=== PATIENT | male | born 1935 | race Asian ===

== ENCOUNTER 2018-12-19 16:19 | Inpatient (IN) | payer MEDICARE, OTHER ==
[~2018-12-19] VITALS: Ht 177.8 cm; Wt 75.8 kg
[2018-12-19 16:38] VITALS: BP 91/62
--- NOTE | 2018-12-19 16:38 | NUR ---
ED Nurse Note: PT BIBA R26 FROM C/C AMS AND HYPOTENSION, PER EMS REPORT, SNF NURSING STAFF CALLED 911 BECAUSE PT WAS ALTERED, PT IS ARMENIAN SPEAKING ONLY, WHEN EMS WAS ON SCENE, MEDICS NOTED PT'S BP LOW SYSTOLIC IN 70S. NOTED PT Aa&OX3 AT THIS TIME, GCS=15, BP 91/64. NO SX RESP DISTRESS NOTED, SAFETY PRECAUTIONS IN PLACE, WILL CONT MONITOR. WARM BLANKET PROVIDED FOR COMFORT.
--- NOTE | 2018-12-19 16:50 | NUR ---
ED Nurse Note: XRAY AT THE BEDSIDE.
--- NOTE | 2018-12-19 17:00 | NUR ---
ED Nurse Note: PT OFF TO CT
[2018-12-19 17:08] VITALS: BP 100/55
[2018-12-19 17:38] VITALS: BP 106/55
--- NOTE | 2018-12-19 17:57 | Diagnostic Imaging Report ---
EXAM: CT Head Without Intravenous Contrast CLINICAL HISTORY: AMS TECHNIQUE: Axial computed tomography images of the head brain without intravenous contrast. CTDI is 60 mGy and DLP is 1364.2 mGy-cm. One or more of the following dose reduction techniques were used: automated exposure control, adjustment of the mA and or kV according to patient size, use of iterative reconstruction technique. COMPARISON: No relevant prior studies available. FINDINGS: Brain: No hemorrhage. No edema. Atrophy with small vessel disease. Multifocal regions of encephalomalacia and gliosis. Ventricles: No ventriculomegaly. Bones joints: Old traumatic and surgical changes in the frontal skull- anterior cranial vault. Soft tissues: Unremarkable. Sinuses: No acute sinusitis. Mastoid air cells: No mastoid effusion. Other: Left cataract surgery. IMPRESSION: No acute intracranial process.
--- NOTE | 2018-12-19 17:59 | Diagnostic Imaging Report ---
EXAM: XR Chest, 1 View CLINICAL HISTORY: WEAK TECHNIQUE: Frontal view of the chest. COMPARISON: No relevant prior studies available. FINDINGS: Lungs: No consolidation. Pleural space: Unremarkable. No pneumothorax. Heart: Unremarkable. No cardiomegaly. Mediastinum: Unremarkable. Bones joints: No acute fracture. IMPRESSION: No acute cardiopulmonary disease.
[2018-12-19 18:03] LABS: BASOPHILS % (AUTO) 0.7 % (0.0-2.0); EOSINOPHILS % (AUTO) 0.8 % (0.0-3.0); HEMATOCRIT 42.9 % (42.0-52.0); HEMOGLOBIN 15.7 G/DL (14.2-18.0); LYMPHOCYTES % (AUTO) 11.6 % (20.0-45.0); MEAN CORPUSCULAR VOLUME 85 FL (80-99); MONOCYTES % (AUTO) 4.7 % (1.0-10.0); NEUTROPHILS % (AUTO) 82.2 % (45.0-75.0); PLATELET COUNT 338 K/UL (150-450); RED BLOOD COUNT 5.05 M/UL (4.70-6.10); RED CELL DISTRIBUTION WIDTH 10.4 % (11.6-14.8); WHITE BLOOD COUNT 16.4 K/UL (4.8-10.8)
--- NOTE | 2018-12-19 18:09 | NUR ---
ED Nurse Note: MARCO EWING SPOKE WITH STAFF OF [facility] FOR LIST OF MEDICATIONS. WAITING FOR FAX.
[2018-12-19 18:17] LABS: ANION GAP 10 mmol/L (5-15); BLOOD UREA NITROGEN 21 mg/dL (7-18); CALCIUM 9.3 MG/DL (8.5-10.1); CARBON DIOXIDE 26 MMOL/L (21-32); CHLORIDE 103 MMOL/L (98-107); CREATININE 1.9 MG/DL (0.55-1.30); POTASSIUM 4.2 MMOL/L (3.5-5.1); SODIUM 139 MMOL/L (136-145)
[2018-12-19 18:29] LABS: ALANINE AMINOTRANSFERASE 23 U/L (12-78); ALBUMIN 4.3 G/DL (3.4-5.0); ALBUMIN/GLOBULIN RATIO 0.8 (1.0-2.7); ALKALINE PHOSPHATASE 133 U/L (46-116); ASPARTATE AMINO TRANSFERASE 17 U/L (15-37); BILIRUBIN,TOTAL 0.6 MG/DL (0.2-1.0)
[2018-12-19 18:38] VITALS: BP 108/56
--- NOTE | 2018-12-19 18:46 | NUR ---
ED Nurse Note: levaquin withheld at this time, verified w/ ermd regarding pt's comfort measure status and antibiotic administration, per ERMD, hold until verified w/ admitting doctor.
[2018-12-19 19:12] LABS: APPEARANCE,URINE CLOUDY; BILIRUBIN, URINE 1+ (NEGATIVE); COLOR,URINE BROWN; GLUCOSE, URINE (UA) NEGATIVE (NEGATIVE); KETONES,URINE 1+ (NEGATIVE); LEUKOCYTE ESTERASE ,URINE 1+ (NEGATIVE); NITRITE,URINE NEGATIVE (NEGATIVE); PH,URINE 5 (4.5-8.0); PROTEIN,URINE 3+ (NEGATIVE); UROBILINOGEN,URINE 4 MG/DL (0.0-1.0)
--- NOTE | 2018-12-19 19:51 | NUR ---
ED Nurse Note: REPORT GIVEN TO TIM CHOPRA FROM [facility].
--- NOTE | 2018-12-19 20:00 | NUR ---
NURSE NOTES: Received report from TIM Asencio. Pt arrived @ 1999 from ED. Pt on room air, AAO x 3, forgetful, Amharic speaking. IV sites intact and patent. No valuable belongings noted. Swabs done from ED. Vitals obtained 97.8F, 82HR, 19RR, 118/72BP, 96O2. Skin intact. Admission order noted and carried out. No other complaints or concerns verbalized at this time. Bed locked, lowest position, side rails up x 2, call light within reach. Will continue to monitor.
[2018-12-19] MEDS ORDERED: Nitroglycerin Subl 0.4mg tab SL PRN (20:45)
[2018-12-19] MEDS ORDERED: Albuterol/Ipratropium 3ml neb HHN PRN (20:45)
[2018-12-19] MEDS ORDERED: Miralax 17gm pkt ORAL PRN (20:45)
[2018-12-19] MEDS ORDERED: Promethazine/Codeine 5ml UD ORAL PRN (20:45)
[2018-12-19 21:14] LABS: CREATINE KINASE 78 U/L (26-308)
--- NOTE | 2018-12-19 21:15 | Emergency Room Report ---
History of Present Illness General Chief Complaint: Altered Level of Consciousness Source: Medical Record Present Illness HPI 83-year-old male presents ED for evaluation. [facility]. Per nursing staff patient noted to be more lethargic and altered today. Also noted to be hypotensive as per EMS. Systolic in the 70s. On arrival patient does not provide any additional history at this time. No signs of distress. No reported fevers or chills. No other aggravating relieving factors. No other associated symptoms Allergies: Coded Allergies: No Known Allergies (Verified , 08/20/09) Patient History Past Medical History: HTN, other - encephalopathy Social History: Denies: smoking, alcohol use, drug use Immunizations: UTD Reviewed Nursing Documentation: PMH: Agreed; PSxH: Agreed Nursing Documentation-PMH Hx Hypertension: Yes Hx Gastrointestinal Problems: Yes - dysphagia Hx Neurological Problems: Yes - encephalopathy, syncope Review of Systems All Other Systems: limited Physical Exam Vital Signs Date Time Temp Pulse Resp B/P (MAP) Pulse Ox O2 Delivery O2 Flow Rate FiO2 12/19/18 16:31 97.5 75 15 91/64 (73) 95 Room Air Sp02 EP Interpretation: reviewed, normal General Appearance: no apparent distress, lethargic Head: normocephalic Eyes: bilateral eye normal inspection, bilateral eye PERRL ENT: normal ENT inspection Neck: normal inspection Respiratory: chest non-tender, lungs clear, normal breath sounds, speaking full sentences Cardiovascular #1: regular rate, rhythm, no edema Gastrointestinal: normal bowel sounds, non tender, soft, non-distended, no guarding, no rebound Rectal: deferred Genitourinary: no CVA tenderness Musculoskeletal: normal inspection Neurologic: other - lethargic Psychiatric: other - lethargic Skin: other - see nursing skin notes Lymphatic: normal inspection Medical Decision Making Diagnostic Impression: Primary Impression: Encephalopathy acute Additional Impressions: Sepsis Qualified Codes: A41.9 - Sepsis, unspecified organism UTI (urinary tract infection) Qualified Codes: N39.0 - Urinary tract infection, site not specified; R31.9 - Hematuria, unspecified Renal insufficiency ER Course Hospital Course 83 yo M presents with hypotension, AMS from SNF Differential diagnoses include: Pneumonia, UTI, sepsis, dehydration, HI/ unstable angina Clinical course Patient placed on stretcher. 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 After initial history and physical, I ordered labs, IV fluids, EKG, chest x-ray, blood cultures, UA. Labs - BUN/Cr elevated, noted leukocytosis, lactic elevated, UA + bacteria EKG - NSR, no acute ischemic changes interpreted by me CXR - no acute process given 30cc/kg fluid bolus. reportedly hypotension at SNF, but BP within normal limits here. Abx given. patient is DNR/comfort per [facility] Case discussed with Dr Cao and they agreed to admit patient to their service for further care and support I feel this is a highly complex case requiring extensive working including EKG/ Rhythm strip, Xray/CT/US, Blood/urine lab work, repeat exams while in ED, and administration of strong opiates/narcotics for pain control, admission to hospital or close patient follow up. Diagnosis - acute encephalopathy, sepsis, UTI, renal insufficiency Patient admitted to floor in serious condition Labs Test 12/19/18 17:50 12/19/18 18:10 12/19/18 18:50 White Blood Count 16.4 K/UL (4.8-10.8) Red Blood Count 5.05 M/UL (4.70-6.10) Hemoglobin 15.7 G/DL (14.2-18.0) Hematocrit 42.9 % (42.0-52.0) Mean Corpuscular Volume 85 FL (80-99) Mean Corpuscular Hemoglobin 31.2 PG (27.0-31.0) Mean Corpuscular Hemoglobin Concent 36.7 G/DL (32.0-36.0) Red Cell Distribution Width 10.4 % (11.6-14.8) Platelet Count 338 K/UL (150-450) Mean Platelet Volume 5.1 FL (6.5-10.1) Neutrophils (%) (Auto) 82.2 % (45.0-75.0) Lymphocytes (%) (Auto) 11.6 % (20.0-45.0) Monocytes (%) (Auto) 4.7 % (1.0-10.0) Eosinophils (%) (Auto) 0.8 % (0.0-3.0) Basophils (%) (Auto) 0.7 % (0.0-2.0) Sodium Level 139 MMOL/L (136-145) Potassium Level 4.2 MMOL/L (3.5-5.1) Chloride Level 103 MMOL/L (98-107) Carbon Dioxide Level 26 MMOL/L (21-32) Anion Gap 10 mmol/L (5-15) Blood Urea Nitrogen 21 mg/dL (7-18) Creatinine 1.9 MG/DL (0.55-1.30) Estimat Glomerular Filtration Rate mL/min (>60) Glucose Level 178 MG/DL (74-106) Lactic Acid Level 2.90 mmol/L (0.4-2.0) 2.10 mmol/L (0.66-2.22) Calcium Level 9.3 MG/DL (8.5-10.1) Total Bilirubin 0.6 MG/DL (0.2-1.0) Aspartate Amino Transf (AST/SGOT) 17 U/L (15-37) Alanine Aminotransferase (ALT/SGPT) 23 U/L (12-78) Alkaline Phosphatase 133 U/L (46-116) Troponin I 0.042 ng/mL (0.000-0.056) Pro-B-Type Natriuretic Peptide 287 pg/mL (0-125) Total Protein 9.4 G/DL (6.4-8.2) Albumin 4.3 G/DL (3.4-5.0) Globulin 5.1 g/dL Albumin/Globulin Ratio 0.8 (1.0-2.7) Urine Color Brown Urine Appearance Cloudy Urine pH 5 (4.5-8.0) Urine Specific [place] 1.025 (1.005-1.035) Urine Protein 3+ (NEGATIVE) Urine Glucose (UA) Negative (NEGATIVE) Urine Ketones 1+ (NEGATIVE) Urine Blood 5+ (NEGATIVE) Urine Nitrite Negative (NEGATIVE) Urine Bilirubin 1+ (NEGATIVE) Urine Ictotest Negative (NEGATIVE) Urine Urobilinogen 4 MG/DL (0.0-1.0) Urine Leukocyte Esterase 1+ (NEGATIVE) Urine RBC 30-40 /HPF (0 - 0) Urine WBC 2-4 /HPF (0 - 0) Urine Squamous Epithelial Cells None /LPF (NONE/OCC) Urine Bacteria Few /HPF (NONE) EKG Diagnostic Results Rate: normal Rhythm: NSR ST Segments: no acute changes ASA given to the pt in ED: No Rhythm Strip Diag. Results EP Interpretation: yes Rhythm: NSR, no PVC's, no ectopy Chest X-Ray Diagnostic Results Chest X-Ray Diagnostic Results : Chest X-Ray Ordered: Yes # of Views/Limited/Complete: 1 View Indication: Other - AMS EP Interpretation: Yes Interpretation: no consolidation, no effusion, no pneumothorax, no acute cardiopulmonary disease Impression: No acute disease Electronically Signed by: Electronically signed by Robert Corado MD CT/MRI/US Diagnostic Results CT/MRI/US Diagnostic Results : Imaging Test Ordered: CT Head Impression no acute process Last Vital Signs Date Time Temp Pulse Resp B/P (MAP) Pulse Ox O2 Delivery O2 Flow Rate FiO2 12/19/18 20:00 98.9 72 14 104/56 98 Room Air Status: improved Disposition: ADMITTED INPATIENT Condition: Serious Referrals: NON PHYSICIAN (PCP) Robert Corado MD Dec 19, 2018 21:15
[2018-12-19] MEDS ORDERED: ROBITUSSIN DM PO (21:20)
[2018-12-19] MEDS ORDERED: MYLANTA PO (21:20)
[2018-12-19] MEDS ORDERED: ARICEPT10 MG ORAL (21:20)
[2018-12-19] MEDS ORDERED: NAMENDA5 MG ORAL (21:20)
[2018-12-19] MEDS ORDERED: PROVERA10 MG ORAL (21:20)
[2018-12-19] MEDS ORDERED: LOSARTAN POTASS25 M1 PO (21:20)
[2018-12-19] MEDS ORDERED: MOM30 ML ORAL (21:20)
[2018-12-19] MEDS ORDERED: FINASTERIDE5 MG ORAL (21:20)
[2018-12-19] MEDS ORDERED: ACETAMINOPHEN325 M1 ORAL ×2 (21:20→21:54)
--- NOTE | 2018-12-19 21:30 | NUR ---
NURSE NOTES: Received meds list via fax from [facility]. Meds recon done. Notified Dr. Cao.
[2018-12-19] MEDS ORDERED: Cefepime HCl 2 GM in D5W 55 ML IV SCH (22:00)
[2018-12-19] MEDS: Heparin 5000 units/ml inj SUBQ SCH (22:06)
[2018-12-19] MEDS ORDERED: Vancomycin 1gm in D5W 275ml IVPB ONE (23:00)
[2018-12-20] VITALS: BP 118/72
[2018-12-20 04:00] VITALS: BP 120/74
--- NOTE | 2018-12-20 06:35 | NUR ---
NURSE NOTES: RN couldn't collect the urine. Pt is incontinent. Left message Dr. Cao for straight cath order. Waiting for call back.
[2018-12-20 07:07] LABS: BASOPHILS % (AUTO) 1.2 % (0.0-2.0); EOSINOPHILS % (AUTO) 2.9 % (0.0-3.0); HEMATOCRIT 34.6 % (42.0-52.0); HEMOGLOBIN 12.3 G/DL (14.2-18.0); LYMPHOCYTES % (AUTO) 24.6 % (20.0-45.0); MEAN CORPUSCULAR VOLUME 87 FL (80-99); MONOCYTES % (AUTO) 6.8 % (1.0-10.0); NEUTROPHILS % (AUTO) 64.6 % (45.0-75.0); PLATELET COUNT 246 K/UL (150-450); RED BLOOD COUNT 3.98 M/UL (4.70-6.10); RED CELL DISTRIBUTION WIDTH 11.6 % (11.6-14.8)
[2018-12-20 07:11] LABS: ALBUMIN 3.3 G/DL (3.4-5.0); ANION GAP 10 mmol/L (5-15); BLOOD UREA NITROGEN 19 mg/dL (7-18); CALCIUM 8.6 MG/DL (8.5-10.1); CARBON DIOXIDE 20 MMOL/L (21-32); CHLORIDE 109 MMOL/L (98-107); CREATININE 1.3 MG/DL (0.55-1.30); PHOSPHORUS 2.9 MG/DL (2.5-4.9); POTASSIUM 4.8 MMOL/L (3.5-5.1); SODIUM 139 MMOL/L (136-145)
--- NOTE | 2018-12-20 07:19 | NUR ---
HAND-OFF: Report given to TIM Roberts.
--- NOTE | 2018-12-20 07:57 | NUR ---
NURSE NOTES: received patient in bed, no complaint or sign of distress. RAC IV access saline locked. Bed locked at the lowest position possible, call light within easy reach, siderails up x2. Will continue to monitor patient and follow up with the plan of care.
[2018-12-20 08:00] VITALS: BP 132/74
[2018-12-20] MEDS: Heparin 5000 units/ml inj SUBQ SCH ×2 (08:56→21:15)
[2018-12-20 12:00] VITALS: BP 134/80
[2018-12-20] MEDS: Cefepime HCl 2 GM in D5W 55 ML IV SCH (12:23)
--- NOTE | 2018-12-20 13:39 | NUR ---
NURSE NOTES: Patient pulled out his IV access, fought while RN was trying to insert another one. Reinserted at LFA gauge 24. Nurse tried to obtain urine for lab requested by , but no urine output observed. Done bladder scan, total volume 173ml, reported to dr Cao, orders obtained to hydrate patient and for awallow eval as patient is NPO due to possible dysphagia.
[2018-12-20 15:48] VITALS: BP 130/77
[2018-12-20] MEDS ORDERED: 1/2 NS 1000ml IV ONE (16:09)
--- NOTE | 2018-12-20 16:16 | Cardiology Report ---
APPROVED REPORT EKG Measurement Heart [id number] Normal sinus rhythm Nonspecific ST abnormality Abnormal ECG
--- NOTE | 2018-12-20 16:25 | History and Physical ---
History of Present Illness General Date patient seen: Dec 20, 2018 Reason for Hospitalization: Altered Level of Consciousness Present Illness HPI 83-year-old male with hx of Dementia, HTN, BPH presents ED for evaluation of lethargy for one day. Also noted to be hypotensive as per EMS. His Systolic was in the 70s. On arrival to ER patient does not provide any additional history. He was diagnosed to have UTI and admitted to Med/surg for further management. Pt is DNR and DNI. Allergies: Coded Allergies: No Known Allergies (Verified , 08/20/09) Medication History Scheduled Donepezil Hcl* (Aricept*), 10 MG ORAL DAILY, (Reported) Finasteride (Finasteride), 5 MG ORAL QHS, (Reported) Losartan Potassium (Losartan Potassium), 50 MG PO DAILY, (Reported) Medroxyprogesterone Acet* (Provera*), 10 MG ORAL DAILY, (Reported) Memantine Hcl* (Namenda*), 5 MG ORAL TWICE A DAY, (Reported) Scheduled PRN Acetaminophen* (Acetaminophen 325MG Tablet*), 650 MG ORAL Q4H PRN for Moderate Pain (Pain Scale 4-6), (Reported) Acetaminophen* (Acetaminophen 325MG Tablet*), 325 MG ORAL Q4H PRN for Mild Pain (Pain Scale 1-3), (Reported) Magnesium Hydroxide (Milk of Magnesia), 30 ML ORAL DAILY PRN for CONSTIPATION, ( Reported) [Mylanta 200-200-20], 15 ML PO FOUR TIMES A DAY PRN for DYSPESIA, (Reported) [Robitussin Dm], 5 ML PO Q6HR PRN for For Cough, (Reported) Patient History Healthcare decision maker Resuscitation status Advanced Directive on File Past Medical/Surgical History Past Medical/Surgical History: (1) Alzheimer's dementia (2) BPH (benign prostatic hyperplasia) Review of Systems All Other Systems: negative except mentioned in HPI Physical Exam General Appearance: WD/WN Lines, tubes and drains: peripheral, PICC HEENT: normocephalic, atraumatic Neck: non-tender, normal alignment Respiratory/Chest: chest wall non-tender, lungs clear Cardiovascular/Chest: normal peripheral pulses, normal rate Abdomen: normal bowel sounds, non tender Genitourinary/Rectal: normal genital exam, normal rectal exam Last 24 Hour Vital Signs Date Time Temp Pulse Resp B/P (MAP) Pulse Ox O2 Delivery O2 Flow Rate FiO2 12/20/18 15:48 98.3 83 19 130/77 (94) 98 12/20/18 12:00 98.1 86 18 134/80 (98) 98 12/20/18 09:00 Room Air 12/20/18 08:00 97.7 81 18 132/74 (93) 100 12/20/18 06:59 78 16 97 Room Air 21 12/20/18 04:00 97.4 80 19 120/74 (89) 96 12/20/18 00:00 97.8 82 19 118/72 (87) 96 12/19/18 21:00 Nasal Cannula 2.0 12/19/18 20:33 Nasal Cannula 2.0 12/19/18 20:00 98.9 72 14 104/56 98 Room Air 12/19/18 18:38 98.5 82 16 108/56 98 Room Air 12/19/18 17:38 98.5 80 16 106/55 98 Room Air 12/19/18 17:11 72 16 Room Air 12/19/18 17:08 82 14 100/55 100 Room Air 12/19/18 16:38 98.5 72 14 91/62 98 Room Air 12/19/18 16:31 97.5 75 15 91/64 (73) 95 Room Air Intake and Output 12/19/18 12/20/18 18:59 06:59 Intake Total 1000 ml 55 ml Balance 1000 ml 55 ml Intake IV Total 1000 ml 55 ml # Voids 1 Laboratory Tests Test 12/19/18 17:50 12/19/18 18:10 12/19/18 18:50 12/20/18 06:10 White Blood Count 16.4 K/UL (4.8-10.8) H 11.0 K/UL (4.8-10.8) H Red Blood Count 5.05 M/UL (4.70-6.10) 3.98 M/UL (4.70-6.10) L Hemoglobin 15.7 G/DL (14.2-18.0) 12.3 G/DL (14.2-18.0) L Hematocrit 42.9 % (42.0-52.0) 34.6 % (42.0-52.0) L Mean Corpuscular Volume 85 FL (80-99) 87 FL (80-99) Mean Corpuscular Hemoglobin 31.2 PG (27.0-31.0) H 31.0 PG (27.0-31.0) Mean Corpuscular Hemoglobin Concent 36.7 G/DL (32.0-36.0) H 35.7 G/DL (32.0-36.0) Red Cell Distribution Width 10.4 % (11.6-14.8) L 11.6 % (11.6-14.8) Platelet Count 338 K/UL (150-450) 246 K/UL (150-450) Mean Platelet Volume 5.1 FL (6.5-10.1) L 4.8 FL (6.5-10.1) L Neutrophils (%) (Auto) 82.2 % (45.0-75.0) H 64.6 % (45.0-75.0) Lymphocytes (%) (Auto) 11.6 % (20.0-45.0) L 24.6 % (20.0-45.0) Monocytes (%) (Auto) 4.7 % (1.0-10.0) 6.8 % (1.0-10.0) Eosinophils (%) (Auto) 0.8 % (0.0-3.0) 2.9 % (0.0-3.0) Basophils (%) (Auto) 0.7 % (0.0-2.0) 1.2 % (0.0-2.0) Sodium Level 139 MMOL/L (136-145) 139 MMOL/L (136-145) Potassium Level 4.2 MMOL/L (3.5-5.1) 4.8 MMOL/L (3.5-5.1) Chloride Level 103 MMOL/L (98-107) 109 MMOL/L (98-107) H Carbon Dioxide Level 26 MMOL/L (21-32) 20 MMOL/L (21-32) L Anion Gap 10 mmol/L (5-15) 10 mmol/L (5-15) Blood Urea Nitrogen 21 mg/dL (7-18) H 19 mg/dL (7-18) H Creatinine 1.9 MG/DL (0.55-1.30) H 1.3 MG/DL (0.55-1.30) Estimat Glomerular Filtration Rate mL/min (>60) mL/min (>60) Glucose Level 178 MG/DL (74-106) H 136 MG/DL (74-106) H Lactic Acid Level 2.90 mmol/L (0.4-2.0) H 2.10 mmol/L (0.66-2.22) Uric Acid 5.7 MG/DL (2.6-7.2) Calcium Level 9.3 MG/DL (8.5-10.1) 8.6 MG/DL (8.5-10.1) Total Bilirubin 0.6 MG/DL (0.2-1.0) Aspartate Amino Transf (AST/SGOT) 17 U/L (15-37) Alanine Aminotransferase (ALT/SGPT) 23 U/L (12-78) Alkaline Phosphatase 133 U/L (46-116) H Total Creatine Kinase 78 U/L (26-308) Troponin I 0.042 ng/mL (0.000-0.056) Pro-B-Type Natriuretic Peptide 287 pg/mL (0-125) H Total Protein 9.4 G/DL (6.4-8.2) H Albumin 4.3 G/DL (3.4-5.0) 3.3 G/DL (3.4-5.0) L Globulin 5.1 g/dL Albumin/Globulin Ratio 0.8 (1.0-2.7) L Urine Color Brown Urine Appearance Cloudy Urine pH 5 (4.5-8.0) Urine Specific [place] 1.025 (1.005-1.035) Urine Protein 3+ (NEGATIVE) H Urine Glucose (UA) Negative (NEGATIVE) Urine Ketones 1+ (NEGATIVE) H Urine Blood 5+ (NEGATIVE) H Urine Nitrite Negative (NEGATIVE) Urine Bilirubin 1+ (NEGATIVE) H Urine Ictotest Negative (NEGATIVE) Urine Urobilinogen 4 MG/DL (0.0-1.0) H Urine Leukocyte Esterase 1+ (NEGATIVE) H Urine RBC 30-40 /HPF (0 - 0) H Urine WBC 2-4 /HPF (0 - 0) Urine Squamous Epithelial Cells None /LPF (NONE/OCC) Urine Bacteria Few /HPF (NONE) Phosphorus Level 2.9 MG/DL (2.5-4.9) Microbiology Date/Time Source Procedure Growth Status 12/19/18 17:52 Rectum Received Height (Feet): 5 Height (Inches): 10.00 Weight (Pounds): 170 Medications Current Medications Medications (Trade) Dose Ordered Sig/Mily Route PRN Reason Start Time Stop Time Status Last Admin Dose Admin Acetaminophen (Tylenol) 650 mg Q4H PRN ORAL fever 12/19/18 20:45 01/18/19 20:44 Albuterol/ Ipratropium (Albuterol/ Ipratropium) 3 ml Q4H PRN HHN Shortness of Breath 12/19/18 20:45 12/24/18 20:44 Cefepime HCl 2 gm/ Dextrose 55 ml @ 110 mls/hr Q12H IV 12/20/18 12:00 12/26/18 11:59 12/20/18 12:23 Heparin Sodium (Porcine) (Heparin 5000 units/ml) 5,000 units EVERY 12 HOURS SUBQ 12/19/18 21:00 01/18/19 20:59 12/20/18 08:56 Nitroglycerin (Ntg) 0.4 mg Q5M PRN SL Prn Chest Pain 12/19/18 20:45 01/18/19 20:44 Ondansetron HCl (Zofran) 4 mg Q6H PRN IVP Nausea & Vomiting 12/19/18 20:45 01/18/19 20:44 Polyethylene Glycol (Miralax) 17 gm DAILYPRN PRN ORAL Constipation 12/19/18 20:45 01/18/19 20:44 Promethazine HCl/ Codeine (Phenergan with Codeine) 5 ml Q4H PRN ORAL For Cough 12/19/18 20:45 01/18/19 20:44 Sodium Chloride 1,000 ml @ 75 mls/hr [id number] IV 12/20/18 13:45 01/19/19 13:44 12/20/18 14:19 Temazepam (Restoril) 15 mg HSPRN PRN ORAL Insomnia 12/19/18 20:45 12/26/18 20:44 Vancomycin HCl (Vanco rx to dose) 1 ea DAILY PRN MISC Per rx protocol 12/19/18 20:45 01/18/19 20:44 Assessment/Plan Problem List: (1) UTI (urinary tract infection) ICD Codes: N39.0 - Urinary tract infection, site not specified SNOMED: 66663659, [id number] Qualifiers: Qualified Codes: N39.0 - Urinary tract infection, site not specified; R31.9 - Hematuria, unspecified (2) Alzheimer's dementia ICD Codes: G30.9 - Alzheimer's disease, unspecified; F02.80 - Dementia in other diseases classified elsewhere without behavioral disturbance SNOMED: 81455999 (3) BPH (benign prostatic hyperplasia) ICD Codes: N40.0 - Benign prostatic hyperplasia without lower urinary tract symptoms SNOMED: 292429161 Assessment/Plan: check urine cultures iv abx venous doppler of US becuase of Megestrol dvt porphylaxis check electrolytes swallow study Jarad Cao MD Dec 20, 2018 16:25
--- NOTE | 2018-12-20 17:11 | NUR ---
NURSE NOTES: performed bladder scan 181cc noted. Tried in and out urinary catheter, with help of CARPENTER MATE holding patient to prevent him to interfere with procedure. Nurse was unable to obtain urine specimen as patient forcefully held nurse's arm pulling out catheter that was already at the tip of patient's urethra.
--- NOTE | 2018-12-20 19:30 | NUR ---
HAND-OFF: Report given to TIM Barriga.
[2018-12-20 20:00] VITALS: BP 135/81
--- NOTE | 2018-12-20 20:00 | NUR ---
NURSE NOTES: Received report from TIM Banuelos. patient a/a/o x2, breathing unlabored on room air. Speaking Lithuanian. Iv noted on the left fore arm intact and patent running 1/2 ns 75 cc/hr. Bed placed at the lowest with alarm, brake, and siderails up for safety. Call light placed within reach and reeducated on the use. Will continue to monitor and provide care as ordered.
--- NOTE | 2018-12-20 23:00 | NUR ---
NURSE NOTES: Sent down urine and sputum samples to the lab.
[2018-12-20 23:48] LABS: APPEARANCE,URINE CLEAR; BILIRUBIN, URINE NEGATIVE (NEGATIVE); COLOR,URINE PALE YELLOW; GLUCOSE, URINE (UA) NEGATIVE (NEGATIVE); KETONES,URINE NEGATIVE (NEGATIVE); LEUKOCYTE ESTERASE ,URINE NEGATIVE (NEGATIVE); NITRITE,URINE NEGATIVE (NEGATIVE); PH,URINE 6 (4.5-8.0); PROTEIN,URINE NEGATIVE (NEGATIVE); UROBILINOGEN,URINE NORMAL MG/DL (0.0-1.0)
[2018-12-21] VITALS: BP 157/87
[2018-12-21] MEDS ORDERED: Vancomycin 1gm/D5W 275ml IVPB ONE ×2 (01:00)
[2018-12-21 04:00] VITALS: BP 142/79
--- NOTE | 2018-12-21 07:30 | NUR ---
NURSE NOTES: Received patient on bed, asleep. IV site intact and patent and covered. Bed in low and locked position, call light in reach. No signs of respiratory distress or pain. Room board updated, will continue to monitor.
--- NOTE | 2018-12-21 07:32 | NUR ---
HAND-OFF: Report given to TIM Harper.
[2018-12-21 08:00] VITALS: BP 138/81
[2018-12-21] MEDS: Heparin 5000 units/ml inj SUBQ SCH ×2 (10:20→21:10)
[2018-12-21 12:00] VITALS: BP 136/78
--- NOTE | 2018-12-21 12:26 | Pulmonology Progress Note ---
Assessment/Plan Problems: (1) UTI (urinary tract infection) (2) Alzheimer's dementia (3) BPH (benign prostatic hyperplasia) Assessment/Plan more alert VS more stable check urine cultures iv abx venous doppler of US becuase of Megestrol dvt porphylaxis check electrolytes swallow study Subjective ROS Limited/Unobtainable: No Constitutional: Reports: no symptoms HEENT: Repors: no symptoms Respiratory: Reports: no symptoms Allergies: Coded Allergies: No Known Allergies (Verified , 08/20/09) Objective Last 24 Hour Vital Signs Date Time Temp Pulse Resp B/P (MAP) Pulse Ox O2 Delivery O2 Flow Rate FiO2 12/21/18 09:00 Room Air 12/21/18 08:00 97.5 78 19 138/81 (100) 96 12/21/18 07:51 71 18 97 Room Air 21 12/21/18 04:00 97.2 75 20 142/79 (100) 95 12/21/18 00:00 98.1 77 20 157/87 (110) 95 12/20/18 21:00 Room Air 12/20/18 20:00 98.2 74 19 135/81 (99) 95 12/20/18 19:22 72 16 95 Room Air 21 12/20/18 15:48 98.3 83 19 130/77 (94) 98 Intake and Output 12/20/18 12/21/18 19:00 07:00 Intake Total 130 ml 1705.000 ml Balance 130 ml 1705.000 ml Intake IV Total 130 ml 1705.000 ml # Voids 8 3 # Bowel Movements 1 General Appearance: WD/WN HEENT: normocephalic, atraumatic Respiratory/Chest: chest wall non-tender, lungs clear Cardiovascular: normal peripheral pulses, normal rate Abdomen: soft, non tender, no organomegaly Genitourinary: normal external genitalia Extremities: no clubbing Skin: no lesions Microbiology Date/Time Source Procedure Growth Status 12/19/18 18:25 Blood Blood Culture - Preliminary NO GROWTH AFTER 24 HOURS Resulted 12/19/18 18:10 Blood Blood Culture - Preliminary NO GROWTH AFTER 24 HOURS Resulted 12/19/18 17:52 Nasal Nares MRSA Culture - Final NO METHICILLIN RESISTANT STAPH AUREUS... Complete 12/19/18 17:52 Stool - Final NO CARBAPENEM-RESISTANT ENTEROBACTERI... Complete 12/19/18 17:52 Rectum VRE Culture - Final NO VANCOMYCIN RESISTANT ENTEROCOCCUS ... Complete Laboratory Tests 12/20/18 22:00: Random Vancomycin Level 6.4 12/20/18 22:30: Urine Color Pale yellow, Urine Appearance Clear, Urine pH 6, Urine Specific [place] 1.015, Urine Protein Negative, Urine Glucose (UA) Negative, Urine Ketones Negative, Urine Blood 2+H, Urine Nitrite Negative, Urine Bilirubin Negative, Urine Urobilinogen Normal, Urine Leukocyte Esterase Negative, Urine RBC 2-4H, Urine WBC 0, Urine Squamous Epithelial Cells Few, Urine Bacteria None , Urine Eosinophils None seen, Urine Osmolality 574H, Urine Random Creatinine [ Pending], Urine Random Microalbumin [Pending], Urine Random Sodium 173H, Urine Microalbumin/Creatinine Ratio [Pending] Current Medications Medications (Trade) Dose Ordered Sig/Mily Route PRN Reason Start Time Stop Time Status Last Admin Dose Admin Acetaminophen (Tylenol) 650 mg Q4H PRN ORAL fever 12/19/18 20:45 01/18/19 20:44 Albuterol/ Ipratropium (Albuterol/ Ipratropium) 3 ml Q4H PRN HHN Shortness of Breath 12/19/18 20:45 12/24/18 20:44 Cefepime HCl 2 gm/ Dextrose 55 ml @ 110 mls/hr Q12H IV 12/20/18 12:00 12/26/18 11:59 12/21/18 00:00 Heparin Sodium (Porcine) (Heparin 5000 units/ml) 5,000 units EVERY 12 HOURS SUBQ 12/19/18 21:00 01/18/19 20:59 12/21/18 10:20 Nitroglycerin (Ntg) 0.4 mg Q5M PRN SL Prn Chest Pain 12/19/18 20:45 01/18/19 20:44 Ondansetron HCl (Zofran) 4 mg Q6H PRN IVP Nausea & Vomiting 12/19/18 20:45 01/18/19 20:44 Polyethylene Glycol (Miralax) 17 gm DAILYPRN PRN ORAL Constipation 12/19/18 20:45 01/18/19 20:44 Promethazine HCl/ Codeine (Phenergan with Codeine) 5 ml Q4H PRN ORAL For Cough 12/19/18 20:45 01/18/19 20:44 Sodium Chloride 1,000 ml @ 75 mls/hr [id number] IV 12/20/18 13:45 01/19/19 13:44 12/21/18 03:23 Temazepam (Restoril) 15 mg HSPRN PRN ORAL Insomnia 12/19/18 20:45 12/26/18 20:44 Vancomycin HCl (Vanco rx to dose) 1 ea DAILY PRN MISC Per rx protocol 12/19/18 20:45 01/18/19 20:44 Jarad Cao MD Dec 21, 2018 12:26
[2018-12-21] MEDS: Cefepime HCl 2 GM in D5W 55 ML IV SCH ×4 (13:39→23:45)
--- NOTE | 2018-12-21 14:24 | Diagnostic Imaging Report ---
Indication:Elevated Bun and Creatinine. Technique: Grayscale and duplex Doppler imaging of the kidneys performed. Comparison: None Findings: The kidneys appear echogenic. There are shadowing foci within the left kidney likely stones. There is no hydronephrosis. There is a left renal cyst measuring about 7 mm. There is a right renal cyst measuring 9 mm. There are nonobstructive stones also suspected in the right kidney.. The right kidney measures 9.5 cm. in length. The left kidney measures 9 cm. in length. The IVC is patent. Urinary bladder is unremarkable. IMPRESSION: Suspected medical renal disease. Some limitation on this study due to body habitus. Suspected nonobstructive stones within both kidneys. Bilateral renal cysts.
--- NOTE | 2018-12-21 15:47 | Consultation ---
Consult Note Consult Note HPI: 83yo gentleman with PMH below presents with lethargy and more altered. EMS reports SBP 70. No fever or chills. Pt is oriented to self and place. Unable to provide much history. Unclear baseline. ID consulted for leukocytosis. ROS: per HPI PMH: Alzheimer BPH HTN Meds: reviewed All: NKDA Shx: skilled nursing resident Fhx: noncontributory VS: reviewed Gen: NAD. calm HEENT: anicteric sclera CV: RRR. no rubs or gallop Resp: RRR. unlabored. no wheezes or crackles. Abd: soft. no TTP Back: no flank pain Neuro: alert. Labs: reviewed Assessment: Afebrile Leukocytosis, improving Lactic acidosis, improving Viral? Noninfectious? unlikely UTI UA negative r/o bacteremia bcx: P unlikely PNA 12/19 CXR: No acute cardiopulmonary disease. 12/20 sputum cx: P Plan: Cefepime and vancomycin #3 12/19 SP Levaquin #1 f/u sputum cx f/u bcx flu swab trend CBC, temp Thank you for this consult. [facility] will continue to follow the patient with you. Hayley Ariza MD Dec 21, 2018 15:47
[2018-12-21 16:00] VITALS: BP 132/74
--- NOTE | 2018-12-21 19:28 | NUR ---
HAND-OFF: Report given to TIM Barriga.
--- NOTE | 2018-12-21 19:32 | NUR ---
NURSE NOTES: Received report from TIM Harper. Patient a/a/o x 2, verbally responsive in Irish. Breathing unlabored on room air without distress. No complaints of pain noted at this time. IV noted on the left forearm intact and patent. Bed placed at the lowest with alarm, brake, and siderails up for safety. Call light placed within reach and reeducated on the purpose. Will continue to monitor and provide care as ordered.
[2018-12-21 20:00] VITALS: BP 142/69
--- NOTE | 2018-12-21 21:46 | NUR ---
NURSE NOTES: Influenza swabs sent down to lab.
[2018-12-22] VITALS: BP 144/65
[2018-12-22 04:00] VITALS: BP 148/91
[2018-12-22 07:01] LABS: BASOPHILS % (AUTO) 1.2 % (0.0-2.0); EOSINOPHILS % (AUTO) 4.3 % (0.0-3.0); HEMOGLOBIN 12.4 G/DL (14.2-18.0); LYMPHOCYTES % (AUTO) 28.3 % (20.0-45.0); MEAN CORPUSCULAR VOLUME 86 FL (80-99); MONOCYTES % (AUTO) 7.4 % (1.0-10.0); NEUTROPHILS % (AUTO) 58.8 % (45.0-75.0); PLATELET COUNT 289 K/UL (150-450); RED BLOOD COUNT 3.96 M/UL (4.70-6.10); WHITE BLOOD COUNT 8.5 K/UL (4.8-10.8)
[2018-12-22 07:15] LABS: ALANINE AMINOTRANSFERASE 17 U/L (12-78); ALBUMIN 3.3 G/DL (3.4-5.0); ALBUMIN/GLOBULIN RATIO 0.9 (1.0-2.7); ALKALINE PHOSPHATASE 93 U/L (46-116); ANION GAP 9 mmol/L (5-15); ASPARTATE AMINO TRANSFERASE 20 U/L (15-37); BILIRUBIN,TOTAL 1.1 MG/DL (0.2-1.0); BLOOD UREA NITROGEN 13 mg/dL (7-18); CALCIUM 8.2 MG/DL (8.5-10.1); CARBON DIOXIDE 23 MMOL/L (21-32); CHLORIDE 105 MMOL/L (98-107); CREATININE 1.1 MG/DL (0.55-1.30); PHOSPHORUS 2.8 MG/DL (2.5-4.9); POTASSIUM 3.8 MMOL/L (3.5-5.1); SODIUM 137 MMOL/L (136-145)
[2018-12-22 07:21] LABS: BILIRUBIN,DIRECT 0.3 MG/DL (0.0-0.3)
--- NOTE | 2018-12-22 07:40 | NUR ---
HAND-OFF: Report given to TIM Shahid.
--- NOTE | 2018-12-22 07:41 | NUR ---
NURSE NOTES: Received pt in bed, AAO x 2. Room air. No c/o of pain/distress. IV on L FA 24g intact and patent, running 1/2 NS @ 75 ml/hr. Side rail x2. Bed in the lowest, locked, and alarm on. Call light within reach. Will continue to monitor
[2018-12-22 08:32] VITALS: BP 134/74
[2018-12-22] MEDS: Heparin 5000 units/ml inj SUBQ SCH ×2 (08:52→21:02)
[2018-12-22] MEDS ORDERED: Vancomycin 1gm/D5W 275ml IVPB SCH ×2 (09:00)
[2018-12-22] MEDS ORDERED: Tubing IV Secondary IV ONE (09:29)
--- NOTE | 2018-12-22 11:11 | Pulmonology Progress Note ---
Assessment/Plan Problems: (1) UTI (urinary tract infection) (2) Alzheimer's dementia (3) BPH (benign prostatic hyperplasia) Assessment/Plan more alert VS more stable check urine cultures iv abx dvt porphylaxis check electrolytes swallow study pending/ d/w Jeanna speech pathologist Subjective ROS Limited/Unobtainable: Yes Interval Events: swallow study pending Allergies: Coded Allergies: No Known Allergies (Verified , 08/20/09) Objective Last 24 Hour Vital Signs Date Time Temp Pulse Resp B/P (MAP) Pulse Ox O2 Delivery O2 Flow Rate FiO2 12/22/18 09:00 Room Air 12/22/18 08:32 98.1 67 14 134/74 (94) 97 12/22/18 08:15 70 15 96 Room Air 21 12/22/18 04:00 97.9 76 20 148/91 (110) 96 12/22/18 00:00 98.1 67 18 144/65 (91) 95 12/21/18 21:56 74 18 98 Room Air 21 12/21/18 21:00 Room Air 12/21/18 20:00 98.1 69 18 142/69 (93) 98 12/21/18 16:00 97.8 77 19 132/74 (93) 98 12/21/18 12:00 97.5 81 20 136/78 (97) 97 Intake and Output 12/21/18 12/22/18 19:00 07:00 Intake Total 805 ml 880 ml Balance 805 ml 880 ml Intake IV Total 805 ml 880 ml # Voids 6 1 General Appearance: WD/WN HEENT: normocephalic, atraumatic Respiratory/Chest: chest wall non-tender, lungs clear Cardiovascular: normal peripheral pulses, regular rhythm Abdomen: normal bowel sounds, non distended Extremities: no clubbing Skin: no lesions Microbiology Date/Time Source Procedure Growth Status 12/19/18 18:25 Blood Blood Culture - Preliminary NO GROWTH AFTER 48 HOURS Resulted 12/19/18 18:10 Blood Blood Culture - Preliminary NO GROWTH AFTER 48 HOURS Resulted 12/21/18 21:25 Nasal Nares - Final Complete 12/21/18 21:25 Nasal Nares - Final Complete 12/20/18 22:45 Sputum Gram Stain - Final Resulted 12/20/18 22:45 Sputum Sputum Culture - Preliminary NORMAL UPPER RESPIRATORY DARA AT 24 ... Resulted 12/19/18 17:52 Nasal Nares MRSA Culture - Final NO METHICILLIN RESISTANT STAPH AUREUS... Complete 12/19/18 17:52 Stool - Final NO CARBAPENEM-RESISTANT ENTEROBACTERI... Complete 12/19/18 17:52 Rectum VRE Culture - Final NO VANCOMYCIN RESISTANT ENTEROCOCCUS ... Complete Laboratory Tests 12/22/18 05:56: White Blood Count 8.5, Red Blood Count 3.96L, Hemoglobin 12.4L, Hematocrit 34.0L , Mean Corpuscular Volume 86, Mean Corpuscular Hemoglobin 31.3H, Mean Corpuscular Hemoglobin Concent 36.5H, Red Cell Distribution Width 11.0L, Platelet Count 289, Mean Platelet Volume 4.8L, Neutrophils (%) (Auto) 58.8, Lymphocytes (%) (Auto) 28.3, Monocytes (%) (Auto) 7.4, Eosinophils (%) (Auto) 4.3H, Basophils (%) (Auto) 1.2, Erythrocyte Sedimentation Rate 24H, Sodium Level 137, Potassium Level 3.8, Chloride Level 105, Carbon Dioxide Level 23, Anion Gap 9, Blood Urea Nitrogen 13, Creatinine 1.1, Estimat Glomerular Filtration Rate , Glucose Level 111H, Calcium Level 8.2L, Phosphorus Level 2.8, Magnesium Level 1.9, Total Bilirubin 1.1H, Direct Bilirubin 0.3, Aspartate Amino Transf (AST/SGOT) 20, Alanine Aminotransferase (ALT/SGPT) 17, Alkaline Phosphatase 93, C-Reactive Protein, Quantitative < 0.4, Total Protein 7.1, Albumin 3.3L, Globulin 3.8, Albumin/Globulin Ratio 0.9L, Random Vancomycin Level 7.6 Current Medications Medications (Trade) Dose Ordered Sig/Mily Route PRN Reason Start Time Stop Time Status Last Admin Dose Admin Acetaminophen (Tylenol) 650 mg Q4H PRN ORAL fever 12/19/18 20:45 01/18/19 20:44 Albuterol/ Ipratropium (Albuterol/ Ipratropium) 3 ml Q4H PRN HHN Shortness of Breath 12/19/18 20:45 12/24/18 20:44 Cefepime HCl 2 gm/ Dextrose 55 ml @ 110 mls/hr Q12H IV 12/20/18 12:00 12/26/18 11:59 12/21/18 23:45 Heparin Sodium (Porcine) (Heparin 5000 units/ml) 5,000 units EVERY 12 HOURS SUBQ 12/19/18 21:00 01/18/19 20:59 12/22/18 08:52 Nitroglycerin (Ntg) 0.4 mg Q5M PRN SL Prn Chest Pain 12/19/18 20:45 01/18/19 20:44 Ondansetron HCl (Zofran) 4 mg Q6H PRN IVP Nausea & Vomiting 12/19/18 20:45 01/18/19 20:44 Polyethylene Glycol (Miralax) 17 gm DAILYPRN PRN ORAL Constipation 12/19/18 20:45 01/18/19 20:44 Promethazine HCl/ Codeine (Phenergan with Codeine) 5 ml Q4H PRN ORAL For Cough 12/19/18 20:45 01/18/19 20:44 Sodium Chloride 1,000 ml @ 75 mls/hr [id number] IV 12/20/18 13:45 01/19/19 13:44 12/22/18 03:30 Temazepam (Restoril) 15 mg HSPRN PRN ORAL Insomnia 12/19/18 20:45 12/26/18 20:44 Vancomycin HCl (Vanco rx to dose) 1 ea DAILY PRN MISC Per rx protocol 12/19/18 20:45 01/18/19 20:44 Vancomycin HCl 1 gm/Dextrose 275 ml @ 183.708 mls/hr Q24H IVPB 12/22/18 09:00 12/27/18 08:59 12/22/18 08:55 Jarad Cao MD Dec 22, 2018 11:11
[2018-12-22 11:23] VITALS: BP 145/77
--- NOTE | 2018-12-22 11:32 | CDS Physician Query ---
Clarification is required for compliance, coding accuracy, and to reflect severity of illness for this patient Dear Dr. Jarad Cao Date: 12/22/2018 Lace Mender/CDS Name: Claudine Kern Clinical Documentation states: ED note: 83-year-old male presents ED for evaluation. Br[facility] from [facility]. Per nursing staff patient noted to be more lethargic and altered today. Also noted to be hypotensive as per EMS. Systolic in the 70s. 12/21 ID note: Leukocytosis, improving Lactic acidosis, improving Viral? Noninfectious? unlikely UTI UA negative unlikely PNA 12/19 CXR: No acute cardiopulmonary disease. Please indicate the nature and chronicity of the condition below: [] Dementia with Delirium [] Metabolic Encephalopathy [] Toxic Encephalopathy [] Toxic - Metabolic Encephalopathy [] Encephalopathy, Other [] Hypoxic encephalopathy [] Posterior reversible encephalopathy syndrome [] Other: [] Not Applicable Present on Admission: [] Yes [] No [] Clinically Undetermined Physician signature Date Please also document in your Progress Notes and/or Discharge Summary and indicate if the condition was present on admission. MTDD
[2018-12-22] MEDS: Cefepime HCl 2 GM in D5W 55 ML IV SCH (12:13)
--- NOTE | 2018-12-22 14:02 | Infectious Diseases Prog Note ---
Assessment/Plan Assessment/Plan 83yo gentleman with PMH below presents with lethargy and more altered. EMS reports SBP 70. No fever or chills. Pt is oriented to self and place. Unable to provide much history. Unclear baseline. ID consulted for leukocytosis. Afebrile Leukocytosis, improving Lactic acidosis, improving Viral? Noninfectious? UTI? UA negative r/o bacteremia bcx: ngtd PNA? flu swab negative 12/19 CXR: No acute cardiopulmonary disease. 12/20 sputum cx: normal jose e MRSA screen negative BPH Alzheimer's Dementia Plan: Cefepime #4/7 12/22 DC vanc #4 12/19 SP Levaquin #1 f/u sputum cx f/u bcx trend CBC, temp aspiration precaution, elevate HOB Thank you for this consult. [facility] will continue to follow the patient with you. Subjective Allergies: Coded Allergies: No Known Allergies (Verified , 08/20/09) Subjective Afebrile. RA. Pt knows his name. Thinks he is at home. Does not know why he is in the hospital. Denies pain, cough, sob, dysuria. According to nurse, pt is more interactive today. Objective Vital Signs Last 24 Hour Vital Signs Date Time Temp Pulse Resp B/P (MAP) Pulse Ox O2 Delivery O2 Flow Rate FiO2 12/22/18 11:23 98.2 68 14 145/77 (99) 95 12/22/18 09:00 Room Air 12/22/18 08:32 98.1 67 14 134/74 (94) 97 12/22/18 08:15 70 15 96 Room Air 21 12/22/18 04:00 97.9 76 20 148/91 (110) 96 12/22/18 00:00 98.1 67 18 144/65 (91) 95 12/21/18 21:56 74 18 98 Room Air 21 12/21/18 21:00 Room Air 12/21/18 20:00 98.1 69 18 142/69 (93) 98 12/21/18 16:00 97.8 77 19 132/74 (93) 98 Height (Feet): 5 Height (Inches): 10.00 Weight (Pounds): 170 Objective Gen: NAD. calm HEENT: anicteric sclera CV: RRR. no rubs or gallop Resp: RRR. unlabored. no wheezes or crackles. Abd: soft. no TTP Back: no flank pain Neuro: alert. Microbiology Date/Time Source Procedure Growth Status 12/19/18 18:25 Blood Blood Culture - Preliminary NO GROWTH AFTER 48 HOURS Resulted 12/19/18 18:10 Blood Blood Culture - Preliminary NO GROWTH AFTER 48 HOURS Resulted 12/21/18 21:25 Nasal Nares - Final Complete 12/21/18 21:25 Nasal Nares - Final Complete 12/20/18 22:45 Sputum Gram Stain - Final Resulted 12/20/18 22:45 Sputum Sputum Culture - Preliminary NORMAL UPPER RESPIRATORY JOSE E AT 24 ... Resulted 12/19/18 17:52 Nasal Nares MRSA Culture - Final NO METHICILLIN RESISTANT STAPH AUREUS... Complete 12/19/18 17:52 Stool - Final NO CARBAPENEM-RESISTANT ENTEROBACTERI... Complete 12/19/18 17:52 Rectum VRE Culture - Final NO VANCOMYCIN RESISTANT ENTEROCOCCUS ... Complete Laboratory Tests Test 12/22/18 05:56 White Blood Count 8.5 K/UL (4.8-10.8) Red Blood Count 3.96 M/UL (4.70-6.10) L Hemoglobin 12.4 G/DL (14.2-18.0) L Hematocrit 34.0 % (42.0-52.0) L Mean Corpuscular Volume 86 FL (80-99) Mean Corpuscular Hemoglobin 31.3 PG (27.0-31.0) H Mean Corpuscular Hemoglobin Concent 36.5 G/DL (32.0-36.0) H Red Cell Distribution Width 11.0 % (11.6-14.8) L Platelet Count 289 K/UL (150-450) Mean Platelet Volume 4.8 FL (6.5-10.1) L Neutrophils (%) (Auto) 58.8 % (45.0-75.0) Lymphocytes (%) (Auto) 28.3 % (20.0-45.0) Monocytes (%) (Auto) 7.4 % (1.0-10.0) Eosinophils (%) (Auto) 4.3 % (0.0-3.0) H Basophils (%) (Auto) 1.2 % (0.0-2.0) Erythrocyte Sedimentation Rate 24 MM/HR (0-20) H Sodium Level 137 MMOL/L (136-145) Potassium Level 3.8 MMOL/L (3.5-5.1) Chloride Level 105 MMOL/L (98-107) Carbon Dioxide Level 23 MMOL/L (21-32) Anion Gap 9 mmol/L (5-15) Blood Urea Nitrogen 13 mg/dL (7-18) Creatinine 1.1 MG/DL (0.55-1.30) Estimat Glomerular Filtration Rate mL/min (>60) Glucose Level 111 MG/DL (74-106) H Calcium Level 8.2 MG/DL (8.5-10.1) L Phosphorus Level 2.8 MG/DL (2.5-4.9) Magnesium Level 1.9 MG/DL (1.8-2.4) Total Bilirubin 1.1 MG/DL (0.2-1.0) H Direct Bilirubin 0.3 MG/DL (0.0-0.3) Aspartate Amino Transf (AST/SGOT) 20 U/L (15-37) Alanine Aminotransferase (ALT/SGPT) 17 U/L (12-78) Alkaline Phosphatase 93 U/L (46-116) C-Reactive Protein, Quantitative < 0.4 mg/dL (0.00-0.90) Total Protein 7.1 G/DL (6.4-8.2) Albumin 3.3 G/DL (3.4-5.0) L Globulin 3.8 g/dL Albumin/Globulin Ratio 0.9 (1.0-2.7) L Random Vancomycin Level 7.6 ug/mL Current Medications Medications (Trade) Dose Ordered Sig/Mily Route PRN Reason Start Time Stop Time Status Last Admin Dose Admin Acetaminophen (Tylenol) 650 mg Q4H PRN ORAL fever 12/19/18 20:45 01/18/19 20:44 Albuterol/ Ipratropium (Albuterol/ Ipratropium) 3 ml Q4H PRN HHN Shortness of Breath 12/19/18 20:45 12/24/18 20:44 Cefepime HCl 2 gm/ Dextrose 55 ml @ 110 mls/hr Q12H IV 12/20/18 12:00 12/26/18 11:59 12/22/18 12:13 Heparin Sodium (Porcine) (Heparin 5000 units/ml) 5,000 units EVERY 12 HOURS SUBQ 12/19/18 21:00 01/18/19 20:59 12/22/18 08:52 Nitroglycerin (Ntg) 0.4 mg Q5M PRN SL Prn Chest Pain 12/19/18 20:45 01/18/19 20:44 Ondansetron HCl (Zofran) 4 mg Q6H PRN IVP Nausea & Vomiting 12/19/18 20:45 01/18/19 20:44 Polyethylene Glycol (Miralax) 17 gm DAILYPRN PRN ORAL Constipation 12/19/18 20:45 01/18/19 20:44 Promethazine HCl/ Codeine (Phenergan with Codeine) 5 ml Q4H PRN ORAL For Cough 12/19/18 20:45 01/18/19 20:44 Sodium Chloride 1,000 ml @ 75 mls/hr [id number] IV 12/20/18 13:45 01/19/19 13:44 12/22/18 03:30 Temazepam (Restoril) 15 mg HSPRN PRN ORAL Insomnia 12/19/18 20:45 12/26/18 20:44 Vancomycin HCl (Vanco rx to dose) 1 ea DAILY PRN MISC Per rx protocol 12/19/18 20:45 01/18/19 20:44 Vancomycin HCl 1 gm/Dextrose 275 ml @ 183.708 mls/hr Q24H IVPB 12/22/18 09:00 12/27/18 08:59 12/22/18 08:55 Hayley Ariza MD Dec 22, 2018 14:02
--- NOTE | 2018-12-22 14:47 | NUR ---
SWALLOW/SPEECH THERAPY NOTE: REFERRED FOR SWALLOW EVAL BY DR CABRERA, SEE FULL REPORT. DYSPHAGIA RISK FACTORS FOR THIS 83 Y.O. HEBREW-SPEAKING MALE: ACUTE ISSUES: AMS, HYPOTENSION, LUNGS CLEAR, UTI H/O DYSPHAGIA, ALZHEIMER'S DZ DEMENTIA, MULTIFOCUAL REGIONS OF ENCELPHALOMALACIA AND GLIOSIS, OLD TRAUMATIC/SURIGICAL CHANGES IN FRONTAL SKULL ANTERIOR CRANIAL VAULT, FUNCTIONAL DYSPEPSIA, GERD, AGE RELATED COGNITIVE DECLINE, HTN. PER POLST NO TUBE FEEDINGS, AT [facility] ON A MAIN [facility] MEDICAL CENTER SOFT CHOPPED DIET AND THIN LIQUIDS. NOW NPO EXCEPT MEDS AND ICE CHIPS ALERT AND ABLE TO COMMUNICATE WITH HEBREW SPEAKING RNGERI. PER GERI, HE IS CONFUSED. INITIAL IMPRESSIONS: S/S OF AT LEAST A MILD OROPHARYNGEAL DYSPHAGIA GIVEN THIN LIQUIDS VIA STRAW, VERY SLOW SWALLOW (FAIR HYOLARYNGEAL EXCURSION) WITH SEQUENTIAL SIPS AND LAST SIP A FEW SECONDS DELAYED. ONLY SWALLOWED 1/4 OF AMOUNT GIVEN BUT NO OVERT ASPIRATION. GIVEN PUDDING TSP, TAKES ABOUT 4 SECONDS TO SWALLOW (TENDS TO CHEW BOLUS UNNECESSARILY), NO ORAL RESIDUE NO OVERT ASP GIVEN 1/2 SALTINE CRACKER, SLOWER CHEWING 10 SECONDS AND HAD MILD ORAL RESIDUE ON TONGUE, NEEDED 2-3 LIQUID CUP WASHES TO CLEAR, NO OVERT ASPIRATION. HAS SILENT ASPIRATION RISK DUE TO ALZHEIMER'S DZ DEMENTIA DX BUT LUNGS ARE CLEAR NOW. RECOMMENDATIONS: CONSIDER MOD BARIUM SWALLOW STUDY TO FURTHER ASSESS SWALLOW, DETERMINE SILENT ASP RISK, AND ATTEMPT TRIAL TX TECHNIQUES IF PO GIVEN FOR QUALITY OF LIFE, CONSIDER STARTING WITH PUREED AND THIN LIQUIDS WITH POSTED ASPIRATION AND REFLUX PRECAUTIONS, AND ASSIST WITH MEALS. SKILLED DYSPHAGIA MANAGEMENT AND TX EDUCATED/TRAINED TIM GUERRA IN POSTED PRECAUTIONS.
[2018-12-22 16:00] VITALS: BP 145/79
--- NOTE | 2018-12-22 19:20 | NUR ---
NURSE NOTES: Received report from TIM Shahid. Pt resting in bed, AAO x 2, on room air. No respiratory distress/pain noted at this time. IV intact running fluid. Bed lowest position, locked, alarm on, side rails up x 2, call light within reach. Will continue to monitor and provide care.
[2018-12-22 20:00] VITALS: BP 121/76
--- NOTE | 2018-12-22 20:11 | NUR ---
HAND-OFF: Report given to TIM Torre.
[2018-12-23] VITALS: BP 118/70
[2018-12-23] MEDS: Cefepime HCl 2 GM in D5W 55 ML IV SCH ×2 (01:19→12:07)
[2018-12-23 04:00] VITALS: BP 125/78
--- NOTE | 2018-12-23 07:30 | NUR ---
NURSE NOTES: recevied report from TIM Stein. patient in bed. alert. confused. verbally responsive. no respiratory distress noted. no c/o pain at this time. IV on LAC 20 running fluid @75/hr.bed in the lowest position and locked. call light within reach. alarm on. will continue to provide plan of care.
--- NOTE | 2018-12-23 07:36 | NUR ---
HAND-OFF: Report given to TIM Freeman.
[2018-12-23 08:00] VITALS: BP 94/66
[2018-12-23] MEDS: Heparin 5000 units/ml inj SUBQ SCH (08:34)
[2018-12-23 12:00] VITALS: BP 128/74
[2018-12-23] MEDS ORDERED: CEFEPIME-D2 GM/50 ML IVPB (12:21)
--- NOTE | 2018-12-23 12:22 | Pulmonology Progress Note ---
Assessment/Plan Problems: (1) UTI (urinary tract infection) (2) Alzheimer's dementia (3) BPH (benign prostatic hyperplasia) Assessment/Plan all reviewed more alert VS more stable check urine cultures iv abx dvt porphylaxis check electrolytes swallow study pending/ d/w Jeanna speech pathologist dc to senior care Subjective ROS Limited/Unobtainable: No HEENT: Repors: no symptoms Respiratory: Reports: no symptoms Allergies: Coded Allergies: No Known Allergies (Verified , 08/20/09) Objective Last 24 Hour Vital Signs Date Time Temp Pulse Resp B/P (MAP) Pulse Ox O2 Delivery O2 Flow Rate FiO2 12/23/18 09:00 Room Air 12/23/18 08:00 98.2 94 15 94/66 (75) 99 12/23/18 07:38 76 18 98 Room Air 21 12/23/18 04:00 98.2 87 18 125/78 (94) 96 12/23/18 00:00 98.0 72 19 118/70 (86) 97 12/22/18 21:00 Room Air 12/22/18 20:00 98.1 89 19 121/76 (91) 96 12/22/18 18:30 68 16 97 Room Air 21 12/22/18 16:00 98.3 71 19 145/79 (101) 96 Intake and Output 12/22/18 12/23/18 19:00 07:00 Intake Total 1000 ml Balance 1000 ml Intake IV Total 1000 ml # Voids 2 # Bowel Movements 1 General Appearance: WD/WN HEENT: normocephalic, atraumatic Respiratory/Chest: chest wall non-tender, lungs clear Cardiovascular: normal peripheral pulses, normal rate Abdomen: normal bowel sounds, soft, non tender Genitourinary: normal external genitalia Extremities: no cyanosis Neurologic/Psychiatric: 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 normal, no motor/sensory deficits Lymphatic: no neck adenopathy Microbiology Date/Time Source Procedure Growth Status 12/21/18 21:25 Nasal Nares - Final Complete 12/21/18 21:25 Nasal Nares - Final Complete 12/20/18 22:45 Sputum Gram Stain - Final Complete 12/20/18 22:45 Sputum Culture - Final Fernanda Albicans Usual Respiratory Arielle Complete Current Medications Medications (Trade) Dose Ordered Sig/Mily Route PRN Reason Start Time Stop Time Status Last Admin Dose Admin Acetaminophen (Tylenol) 650 mg Q4H PRN ORAL fever 12/19/18 20:45 01/18/19 20:44 Albuterol/ Ipratropium (Albuterol/ Ipratropium) 3 ml Q4H PRN HHN Shortness of Breath 12/19/18 20:45 12/24/18 20:44 Cefepime HCl 2 gm/ Dextrose 55 ml @ 110 mls/hr Q12H IV 12/20/18 12:00 12/26/18 11:59 12/23/18 12:07 Heparin Sodium (Porcine) (Heparin 5000 units/ml) 5,000 units EVERY 12 HOURS SUBQ 12/19/18 21:00 01/18/19 20:59 12/23/18 08:34 Nitroglycerin (Ntg) 0.4 mg Q5M PRN SL Prn Chest Pain 12/19/18 20:45 01/18/19 20:44 Ondansetron HCl (Zofran) 4 mg Q6H PRN IVP Nausea & Vomiting 12/19/18 20:45 01/18/19 20:44 Polyethylene Glycol (Miralax) 17 gm DAILYPRN PRN ORAL Constipation 12/19/18 20:45 01/18/19 20:44 Promethazine HCl/ Codeine (Phenergan with Codeine) 5 ml Q4H PRN ORAL For Cough 12/19/18 20:45 01/18/19 20:44 Sodium Chloride 1,000 ml @ 75 mls/hr [id number] IV 12/20/18 13:45 01/19/19 13:44 12/23/18 08:32 Temazepam (Restoril) 15 mg HSPRN PRN ORAL Insomnia 12/19/18 20:45 12/26/18 20:44 Jarad Cao MD Dec 23, 2018 12:22
--- NOTE | 2018-12-23 14:39 | Infectious Diseases Prog Note ---
Assessment/Plan Assessment/Plan 83yo gentleman with PMH below presents with lethargy and more altered. EMS reports SBP 70. No fever or chills. Pt is oriented to self and place. Unable to provide much history. Unclear baseline. ID consulted for leukocytosis. Afebrile Leukocytosis, improving Lactic acidosis, improving Viral? Noninfectious? UTI? UA negative r/o bacteremia bcx: ngtd PNA? flu swab negative 12/19 CXR: No acute cardiopulmonary disease. 12/20 sputum cx: normal jose e MRSA screen negative BPH Alzheimer's Dementia Plan: Cefepime #5/7 12/22 DC vanc #4 12/19 SP Levaquin #1 f/u sputum cx f/u bcx trend CBC, temp aspiration precaution, elevate HOB Thank you for this consult. [facility] will continue to follow the patient with you. Subjective Allergies: Coded Allergies: No Known Allergies (Verified , 08/20/09) Subjective Afebrile. RA. AAOx2. Denies cough, chills, sob, abdominal pain. Objective Vital Signs Last 24 Hour Vital Signs Date Time Temp Pulse Resp B/P (MAP) Pulse Ox O2 Delivery O2 Flow Rate FiO2 12/23/18 12:00 97.9 84 15 128/74 (92) 99 12/23/18 09:00 Room Air 12/23/18 08:00 98.2 94 15 94/66 (75) 99 12/23/18 07:38 76 18 98 Room Air 21 12/23/18 04:00 98.2 87 18 125/78 (94) 96 12/23/18 00:00 98.0 72 19 118/70 (86) 97 12/22/18 21:00 Room Air 12/22/18 20:00 98.1 89 19 121/76 (91) 96 12/22/18 18:30 68 16 97 Room Air 21 12/22/18 16:00 98.3 71 19 145/79 (101) 96 Height (Feet): 5 Height (Inches): 10.00 Weight (Pounds): 167 Objective Gen: NAD. calm HEENT: anicteric sclera CV: RRR. no rubs or gallop Resp: RRR. unlabored. no wheezes or crackles. Abd: soft. no TTP Back: no flank pain Neuro: alert. Microbiology Date/Time Source Procedure Growth Status 12/21/18 21:25 Nasal Nares - Final Complete 12/21/18 21:25 Nasal Nares - Final Complete 12/20/18 22:45 Sputum Gram Stain - Final Complete 12/20/18 22:45 Sputum Culture - Final Fernanda Albicans Usual Respiratory Jose E Complete Current Medications Medications (Trade) Dose Ordered Sig/Mily Route PRN Reason Start Time Stop Time Status Last Admin Dose Admin Acetaminophen (Tylenol) 650 mg Q4H PRN ORAL fever 12/19/18 20:45 01/18/19 20:44 Albuterol/ Ipratropium (Albuterol/ Ipratropium) 3 ml Q4H PRN HHN Shortness of Breath 12/19/18 20:45 12/24/18 20:44 Cefepime HCl 2 gm/ Dextrose 55 ml @ 110 mls/hr Q12H IV 12/20/18 12:00 12/26/18 11:59 12/23/18 12:07 Heparin Sodium (Porcine) (Heparin 5000 units/ml) 5,000 units EVERY 12 HOURS SUBQ 12/19/18 21:00 01/18/19 20:59 12/23/18 08:34 Nitroglycerin (Ntg) 0.4 mg Q5M PRN SL Prn Chest Pain 12/19/18 20:45 01/18/19 20:44 Ondansetron HCl (Zofran) 4 mg Q6H PRN IVP Nausea & Vomiting 12/19/18 20:45 01/18/19 20:44 Polyethylene Glycol (Miralax) 17 gm DAILYPRN PRN ORAL Constipation 12/19/18 20:45 01/18/19 20:44 Promethazine HCl/ Codeine (Phenergan with Codeine) 5 ml Q4H PRN ORAL For Cough 12/19/18 20:45 01/18/19 20:44 Sodium Chloride 1,000 ml @ 75 mls/hr [id number] IV 12/20/18 13:45 01/19/19 13:44 12/23/18 08:32 Temazepam (Restoril) 15 mg HSPRN PRN ORAL Insomnia 12/19/18 20:45 12/26/18 20:44 Hayley Ariza MD Dec 23, 2018 14:39
--- NOTE | 2018-12-23 14:41 | NUR ---
DISCHARGE PLANNING DISCHARGE ORDER NOTED Patient has been accepted to; [facility] [address] [place] [address] Bed: 24-2 Skilled [phone] for Nurse to Nurse report [facility] ETA for transportation: 3:45
--- NOTE | 2018-12-23 14:50 | NUR ---
NURSE NOTES: patient discharged to [facility] with stable condition. no respiratory distress noted. no c/o pain at this time. TIM Newell wants patient keep IV site for continuous ATB treatment. IV intact. RN removed ID band. Provided DC packet to ambulance personnel.no belongings. RN changed dressing on Rt heel redness and took wound picture. all needs attended. patient left via gurney safely.
--- NOTE | 2018-12-23 16:07 | NUR ---
NURSE NOTES: RN given patient report to [facility]. spoke to TIM Newell
--- NOTE | 2018-12-23 18:46 | Discharge Summary ---
Discharge Summary Discharge Summary _ DATE OF ADMISSION: 12/19/2018 DATE OF DISCHARGE: 12/23/2018 DISCHARGED BY: Dr. Cao REASON FOR ADMISSION: [] 83 years old male with past medical history of hypertension, BPH, dementia, presented to emergency room for evaluation due to lethargy for 1 day. [facility] also noted that patient was hypotensive systolic within 70s. On arrival to emergency room patient was unable to provide any additional information. Patient was diagnosed to have UTI and admitted to medical surgical floor for further management patient with a DNR/DNI status. Laboratory work-up revealed leukocytosis WBC 16.4 stable hemoglobin hematocrit. Lactic acid 2.9. BUN 21, creatinine 1.9. Glucose 178. Stable electrolytes. Stable LFT. Albumin 4.3. Troponin 0 0.042 EKG revealed sinus rhythm no acute ischemic changes. Urinalysis revealed +1 leukocyte esterase +3 protein) swab was negative. CONSULTANTS: ID specialist Dr. Ariza [facility] COURSE: [] Patient admitted to medical surgical floor patient started on empiric antibiotic. ID specialist follow. Venous Doppler bilateral lower extremity was done due to patient being on Megace and revealed no evidence of acute DVT. DVT prophylaxis provided. Chest x-ray revealed no acute cardiopulmonary pathology. Pulse oximetry was stable on room air. CT of the head done in the emergency room revealed no acute intracranial process. Renal ultrasound revealed suspicion of medical renal disease. Nonobstructive stones within both kidneys. Bedside swallow evaluation revealed dysphagia and silent aspiration risk. Consider video swallow evaluation which can be done as outpatient. Diet texture provided as per registered dietitian recommendation with one-to-one supervision and strict aspiration reflux precaution. Per ID specialist leukocytosis resolved lactic acid improving unclear which was viral or not infection unlikely UTI since urine analysis was negative unlikely pneumonia given the chest x-ray showed no acute cardiopulmonary disease. Infectious disease recommended continue 2 more days of IV antibiotic. Patient clinically stabilized and was ready for discharge supportive care provided. Bowel regimen instituted.. Blood culture were negative. Sputum culture revealed Fernanda. Cytosis resolved. Lactic acid improved. Renal (electrolytes are closely monitor BUN from 21 down to 13 and creatinine from 1.9 down to 1.1. FINAL DIAGNOSES: Acute encephalopathy Lactic acidosis improved Leukocytosis resolved Acute on chronic renal disease Alzheimer's dementia BPH DISCHARGE MEDICATIONS: See Medication Reconciliation list. DISCHARGE INSTRUCTIONS: Patient was discharged to the custodial facility. Follow up with medical doctor at the facility. I have been assigned to dictate discharge summary for this account. I was not involved in the patient's management. Eva Solorio NP Dec 23, 2018 18:46
== END 2018-12-23 17:20 | DRG 641 ==
LOC: EDBD 16:19 → EMR 17:16 → EDBEDREQ 18:49 → 4E 19:01
DX: E87.2 Acidosis (principal); N17.9 Acute kidney failure, unspecified; G93.40 Encephalopathy, unspecified; F02.80 Dementia in other diseases classified elsewhere, unspecified severity, without behavioral disturbance, psychotic disturbance, mood disturbance, and anxiety; G30.9 Alzheimer's disease, unspecified; N40.0 Benign prostatic hyperplasia without lower urinary tract symptoms; N18.9 Chronic kidney disease, unspecified; R13.10 Dysphagia, unspecified; I12.9 Hypertensive chronic kidney disease with stage 1 through stage 4 chronic kidney disease, or unspecified chronic kidney disease; Z66 Do not resuscitate
CPT/HCPCS: 36415; 70450; 71045; 76770; 80053; 80069; 80202; 81001; 81003; 82043; 82248; 82550; 83605; 83735; 83880; 83935; 84100; 84300; 84484; 84550; 85025; 85651; 86140; 86710; 87040; 87070; 87081; 87205; 89050; 93005; 94664; 96361; 96365; 99285; J7030

== ENCOUNTER 2020-01-14 13:41 | Inpatient (IN) | payer MEDICARE, OTHER ==
[~2020-01-14] VITALS: Ht 170.2 cm; Wt 73.0 kg
[~2020-01-14 13:41] MED LIST: ACETAMINOPHEN325 M1 ORAL; ARICEPT10 MG ORAL; CEFEPIME-D2 GM/50 ML IVPB; FINASTERIDE5 MG ORAL; LOSARTAN POTASS25 M1 PO; MOM30 ML ORAL; MYLANTA PO; NAMENDA5 MG ORAL; PROVERA10 MG ORAL; ROBITUSSIN DM PO
--- NOTE | 2020-01-14 14:16 | Emergency Room Report ---
History of Present Illness General Chief Complaint: Abnormal Labs Source: EMS Present Illness HPI Patient is [facility] in by [facility]. Apparently was more altered today and they found that he had high blood sugar. Patient has dementia and is unable to answer questions. Apparently he tested negative for COVID on Friday. 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 - 01/11/20 COVID-19 Screening: Negative COVID-19 COVID-19 Testing Source: nasal Patient History Limited by: medical condition Past Medical History: see triage record, old chart reviewed Social History Narrative nursing home facility - DNR Reviewed Nursing Documentation: PMH: Agreed; PSxH: Agreed Nursing Documentation-PMH Past Medical History: No History, Except For Hx Cardiac Problems: Yes Hx Hypertension: Yes Hx Cancer: No Hx Gastrointestinal Problems: Yes - dysphagia Hx Neurological Problems: Yes - encephalopathy, syncope Review of Systems All Other Systems: limited Physical Exam Vital Signs Date Time Temp Pulse Resp B/P (MAP) Pulse Ox O2 Delivery O2 Flow Rate FiO2 01/14/20 13:42 97.7 121 28 97/71 (80) 94 Room Air General Appearance: no apparent distress, thin, Chronically Ill, Stupor Head: normocephalic, atraumatic Eyes: bilateral eye other - Eyes closed ENT: moist mucus membranes Neck: supple, no meningismus Respiratory: lungs clear, normal breath sounds Cardiovascular #1: tachycardia Cardiovascular #2: 2+ radial (R) Gastrointestinal: non tender, decreased bowel sounds Genitourinary: penis normal Musculoskeletal: back normal, decreased range of motion Neurologic: other - Responsive to deep pain but otherwise unresponsive, moves all 4 Psychiatric: other - Stupor Skin: no rash, warm/dry Procedures Critical Care Time Critical Care Time Total Critical Care Time: 45 min bedside evaluation and treatment excludes procedures (EKG). Reason for critical care: Hyperglycemic hyperosmolar coma, hyponatremia, positive troponin, sepsis, repeat evaluations Possible complications: hypotension, hypertension, NE, shock, arrhythmias, metabolic acidosis, end organ damage, respiratory failure. Interventions: Fluid bolus, insulin, antibiotics, repeat evaluations, aspirin, increased level of care Course: Patient presented with altered level of consciousness. POLST reviewed which reveals DNR status. Elevated blood glucose with initiation of treatment with normal saline bolus. Elevated white count noted and antibiotics begun based on chest x-ray which is clear. Initial bolus not 30 mils per kilogram due to the history of renal failure and dialysis. Called with elevated troponin. Aspirin administered. Patient reevaluated, still comatose. Accu-Chek still h igh after bolus and insulin bolus administered. Elevated lactic acid led to rebolus for 30 mils per kilogram as well as review of renal function which is abnormal but not requiring dialysis. Patient reevaluated with more responsiveness. Repeat Chem-6 with improved glucose. Second insulin bolus given. Discussed with admitting physician. Consultations: nursing staff, EMS, admitting physician Performed by: Dr. Marie Tolerated well condition = critical Medical Decision Making Diagnostic Impression: Primary Impression: AMS (altered mental status) Qualified Codes: R40.1 - Stupor Additional Impressions: Sepsis Qualified Codes: A41.9 - Sepsis, unspecified organism; R65.20 - Severe sepsis without septic shock Non-ketotic hyperosmolar coma UTI (urinary tract infection) Qualified Codes: N39.0 - Urinary tract infection, site not specified Hypernatremia Elevated troponin ER Course Patient presents with altered mentation with mild hypotension and tachycardia and hyperglycemia. Differential includes sepsis, acute myocardial infarction, other occult infection, Covid, dehydration amongst others. Patient evaluated with EKG, chest x-ray and labs. Patient placed on a campus monitor. Normal saline 1 L bolus given. EKG sinus tachycardia with nonspecific ST-T wave changes. Called with WBC 23.2. = sepsis. Antibiotics ordered 1525 As CXR clear, most likely urinary source. Called for glucose = 924 and trop 6.623. Aspirin and insulin ordered.. 1553 Corrected sodium is high. Sepsis re-evaluation: elevated lactic acid. Antibiotics ordered. No change mentation. Rest of 30 ml/kg bolus ordered and continued hydration. Accucheck still high. Sending BMP, repeat lactate and giving another insulin bolus. Patient now responding to touch and voice. 1710 Repeat chem 6 with improved glucose. (Sodium still high.) Continued IV hydration. Laboratory Tests Test 01/14/20 14:30 01/14/20 14:50 01/14/20 17:50 Urine Color Yellow Urine Appearance Cloudy Urine pH 5 (4.5-8.0) Urine Specific [place] 1.020 (1.005-1.035) Urine Protein 2+ (NEGATIVE) H Urine Glucose (UA) 4+ (NEGATIVE) H Urine Ketones 1+ (NEGATIVE) H Urine Blood 4+ (NEGATIVE) H Urine Nitrite Negative (NEGATIVE) Urine Bilirubin Negative (NEGATIVE) Urine Urobilinogen Normal MG/DL (0.0-1.0) Urine Leukocyte Esterase 2+ (NEGATIVE) H Urine RBC 30-40 /HPF (0 - 0) H Urine WBC 60-80 /HPF (0 - 0) H Urine Squamous Epithelial Cells Few /LPF (NONE/OCC) Urine Bacteria Many /HPF (NONE) H Urine Coarse Granular Casts 0-2 /LPF (NONE) H White Blood Count 23.2 K/UL (4.8-10.8) *H Red Blood Count 5.28 M/UL (4.70-6.10) Hemoglobin 16.4 G/DL (14.2-18.0) Hematocrit 49.6 % (42.0-52.0) Mean Corpuscular Volume 94 FL (80-99) Mean Corpuscular Hemoglobin 31.0 PG (27.0-31.0) Mean Corpuscular Hemoglobin Concent 33.1 G/DL (32.0-36.0) Red Cell Distribution Width 14.7 % (11.6-14.8) Platelet Count 305 K/UL (150-450) Mean Platelet Volume 6.0 FL (6.5-10.1) L Neutrophils (%) (Auto) % (45.0-75.0) Lymphocytes (%) (Auto) % (20.0-45.0) Monocytes (%) (Auto) % (1.0-10.0) Eosinophils (%) (Auto) % (0.0-3.0) Basophils (%) (Auto) % (0.0-2.0) Differential Total Cells Counted 100 Neutrophils % (Manual) 74 % (45-75) Lymphocytes % (Manual) 13 % (20-45) L Monocytes % (Manual) 2 % (1-10) Eosinophils % (Manual) 0 % (0-3) Basophils % (Manual) 0 % (0-2) Band Neutrophils 11 % (0-8) H Platelet Estimate Adequate Platelet Morphology Normal Red Blood Cell Morphology Normal Prothrombin Time 11.3 SEC (9.30-11.50) Prothrombin Time INR 1.0 (0.9-1.1) Activated Partial Thromboplast Time 19 SEC (23-33) L Sodium Level 156 MMOL/L (136-145) H 164 MMOL/L (136-145) *H Potassium Level 5.3 MMOL/L (3.5-5.1) H 2.9 MMOL/L (3.5-5.1) L Chloride Level 119 MMOL/L (98-107) H 132 MMOL/L (98-107) H Carbon Dioxide Level 20 MMOL/L (21-32) L 16 MMOL/L (21-32) L Anion Gap 17 mmol/L (5-15) H Blood Urea Nitrogen 85 mg/dL (7-18) H 69 mg/dL (7-18) H Creatinine 2.7 MG/DL (0.55-1.30) H 2.1 MG/DL (0.55-1.30) H Estimated Glomerular Filtration Rate 22.6 mL/min (>60) 30.2 mL/min (>60) Glucose Level 924 MG/DL (74-106) *H 570 MG/DL (74-106) #*H Lactic Acid Level 4.50 mmol/L (0.4-2.0) H 6.20 mmol/L (0.66-2.22) H Calcium Level 10.1 MG/DL (8.5-10.1) 7.7 MG/DL (8.5-10.1) #L Ferritin 880 NG/ML (8-388) H Total Bilirubin 0.8 MG/DL (0.2-1.0) Aspartate Amino Transferase (AST) 31 U/L (15-37) Alanine Aminotransferase (ALT) 12 U/L (12-78) Alkaline Phosphatase 162 U/L (46-116) H Lactate Dehydrogenase 274 U/L (135-225) H Total Creatine Kinase 519 U/L (26-140) H Troponin I 4.263 ng/mL (0.000-0.056) C-Reactive Protein, Quantitative 0.8 mg/dL (0.00-0.90) Pro-B-Type Natriuretic Peptide 1222 pg/mL (0-125) H Total Protein 9.4 G/DL (6.4-8.2) H Albumin 3.8 G/DL (3.4-5.0) Globulin 5.6 g/dL Albumin/Globulin Ratio 0.7 (1.0-2.7) L Lipase 138 U/L (73-393) EKG Diagnostic Results Rate: tachycardiac Rhythm: NSR ST Segments: no acute changes Rhythm Strip Diag. Results EP Interpretation: yes Rhythm: no PVC's, no ectopy, other - Tachycardia 117 Chest X-Ray Diagnostic Results Chest X-Ray Diagnostic Results : Chest X-Ray Ordered: Yes # of Views/Limited/Complete: 1 View Indication: Other EP Interpretation: Yes Interpretation: no consolidation, no effusion, no pneumothorax Impression: No acute disease Electronically Signed by: Electronically signed by Leroy Marie MD Last Vital Signs Date Time Temp Pulse Resp B/P (MAP) Pulse Ox O2 Delivery O2 Flow Rate FiO2 01/14/20 18:03 97.7 102 26 116/73 100 Nasal Cannula 2.0 Status: improved Disposition: ADMITTED INPATIENT Condition: Serious Leroy Marie MD Jan 14, 2020 14:16
--- NOTE | 2020-01-14 14:35 | NUR ---
ED Nurse Note: Pt was brought in from [facility] d/t hyperglycemia with HIGH reading. Per EMS, pt started to be having altered level of consciousness today, aox0, non-verbal. Pt's a DNR. Pt was placed on bed, hooked to radiation monitor, VSS, satting at 98% on 2LPM via NC. Will continue to monitor pt.
--- NOTE | 2020-01-14 14:36 | NUR ---
ED Nurse Note: X-ray at bedside.
[2020-01-14 15:19] LABS: HEMATOCRIT 49.6 % (42.0-52.0); HEMOGLOBIN 16.4 G/DL (14.2-18.0); MEAN CORPUSCULAR VOLUME 94 FL (80-99); PLATELET COUNT 305 K/UL (150-450); RED BLOOD COUNT 5.28 M/UL (4.70-6.10); RED CELL DISTRIBUTION WIDTH 14.7 % (11.6-14.8)
[2020-01-14 15:24] LABS: WHITE BLOOD COUNT 23.2 K/UL (4.8-10.8)
[2020-01-14 15:30] LABS: ANION GAP 17 mmol/L (5-15); BLOOD UREA NITROGEN 85 mg/dL (7-18); CALCIUM 10.1 MG/DL (8.5-10.1); CARBON DIOXIDE 20 MMOL/L (21-32); CHLORIDE 119 MMOL/L (98-107); CREATININE 2.7 MG/DL (0.55-1.30); POTASSIUM 5.3 MMOL/L (3.5-5.1); SODIUM 156 MMOL/L (136-145)
[2020-01-14] MEDS ORDERED: Vancomycin 1 GM in NS 275 ML IVPB ONE (15:30)
[2020-01-14] MEDS ORDERED: cefTRIAXone 1 GM in NS 55 ML IVPB ONE (15:30)
[2020-01-14 15:39] LABS: APPEARANCE,URINE CLOUDY; BILIRUBIN, URINE NEGATIVE (NEGATIVE); COLOR,URINE YELLOW; GLUCOSE, URINE (UA) 4+ (NEGATIVE); KETONES,URINE 1+ (NEGATIVE); LEUKOCYTE ESTERASE ,URINE 2+ (NEGATIVE); NITRITE,URINE NEGATIVE (NEGATIVE); PH,URINE 5 (4.5-8.0); PROTEIN,URINE 2+ (NEGATIVE); UROBILINOGEN,URINE NORMAL MG/DL (0.0-1.0)
[2020-01-14 15:58] VITALS: BP 116/73
[2020-01-14] MEDS ORDERED: Insulin Human Regular 100units/ml 3ml IV ONE ×2 (16:00→17:15)
[2020-01-14 16:01] LABS: ALANINE AMINOTRANSFERASE 12 U/L (12-78); ALBUMIN 3.8 G/DL (3.4-5.0); ALBUMIN/GLOBULIN RATIO 0.7 (1.0-2.7); ALKALINE PHOSPHATASE 162 U/L (46-116); ASPARTATE AMINO TRANSFERASE 31 U/L (15-37); BILIRUBIN,TOTAL 0.8 MG/DL (0.2-1.0); CREATINE KINASE 519 U/L (26-140); FERRITIN 880 NG/ML (8-388); LACTATE DEHYDROGENASE 274 U/L (135-225)
[2020-01-14] MEDS ORDERED: Sodium Chloride 2,200 ML IVLG ONE (16:15)
--- NOTE | 2020-01-14 16:37 | NUR ---
ED Nurse Note: latest BP: 97/66
--- NOTE | 2020-01-14 16:41 | NUR ---
ED Nurse Note: lactic reflex collected, sent to lab.
--- NOTE | 2020-01-14 16:54 | NUR ---
ED Nurse Note: report given to TIM Day in Telemetry Unit.
--- NOTE | 2020-01-14 17:24 | NUR ---
ED Nurse Note: Called insurance follow up specialist from the lab for lactic reflex and repeat bmp. Routine covid swab collected, sent to lab.
--- NOTE | 2020-01-14 17:30 | Diagnostic Imaging Report ---
Indication: Cough Technique: One view of the chest Comparison: 12/19/2018 Findings: Lungs and pleural spaces are clear. The heart size is normal. The aorta is tortuous and calcified. Impression: No acute process
--- NOTE | 2020-01-14 18:03 | NUR ---
ED Nurse Note: Pt was transferred to Telemetry unit under the care of Dr. Oneal. Pt was transferred on stable condition. report given to TIM Day.
[2020-01-14 18:26] LABS: BLOOD UREA NITROGEN 69 mg/dL (7-18); CALCIUM 7.7 MG/DL (8.5-10.1); CARBON DIOXIDE 16 MMOL/L (21-32); CHLORIDE 132 MMOL/L (98-107); CREATININE 2.1 MG/DL (0.55-1.30); POTASSIUM 2.9 MMOL/L (3.5-5.1)
[2020-01-14 18:29] LABS: SODIUM 164 MMOL/L (136-145)
--- NOTE | 2020-01-14 18:51 | NUR ---
NURSE NOTES: Report received from Tami DUMONT. Patient admitted from ER via gurney transport. Pt is AxOx0, non-verbal, FLACC 0, unable to follow commands. On O2 at 2lpm via NC but sats were low 90's so titrated O2 to 4lpm, sats improved to 94-95%. PIV on right hand and left hand patent and intact, currently infusing Vancomycin from ER. Skin is intact. Bed low and locked, siderails up x2, call light placed within reach, bed alarms on 1. Endorsed to call MD for admitting orders. No belongings noted. Vitals taken and recorded.
--- NOTE | 2020-01-14 19:10 | NUR ---
NURSE NOTES: RECEIVED REPORT FROM TIM NASH. PT IN BED AWAKE. PT ASLEEP RESPONDS TO VERBAL & TACTILE STIMULI. NO RESP DISTRESS NOTED. ON O2 VIA NC AT 4L/MIN SATING AT 98-100%. KIDNEY TRIMMER IN PLACE. LEFT HAND 20G IN PLACE & PATENT. BED IN LOW POSITION & LOCKED. SIDE RAILS UP X3. CALL LIGHT WITH IN REACH. BED ALARM ON. WILL CALL DR. HENDERSON FOR ADMISSION ORDERS.
--- NOTE | 2020-01-14 19:40 | NUR ---
NURSE NOTES: DR. HENDERSON CALLED BACK WITH NEW ORDERED NOTED & CARRIED OUT. NOTIFIED DR. GIVENS REGARDING POTASSIUM ON 2.9 ORDERED 60 MEQ OF POTASSIUM X1 DOSE NOW, WILL NOTE & CARRY OUT.
--- NOTE | 2020-01-14 19:40 | NUR ---
NURSE HAND-OFF REPORT: Important Events on Shift: Patient admitted from ER Patient Status: DNR/DNI Diet: Pending orders Pending Orders: Admission orders Pending Results/Labs: Labs from ER Pending MD notification: Admission orders and lab resutls from ER Latest Vital Signs: Temperature 97.7 , Pulse 102 , B/P 116 /73 , Respiratory Rate 26 , O2 SAT 100 , Nasal Cannula, O2 Flow Rate 2.0 . Vital Sign Comment: EKG Rhythm: Sinus Tachycardia Rhythm change?: MD Notified?: - MD Response: Latest Eric Fall Score: 30 Fall Risk: Safety Measures: Call light , Bed Alarm , Side Rails , Bed position . Fall Precautions: Report given to Olivia DUMONT.
[2020-01-14 20:00] VITALS: BP 92/56
[2020-01-14] MEDS ORDERED: Milk of Magnesia 30ml Ud ORAL PRN (20:30)
[2020-01-14] MEDS ORDERED: Heparin 5000 units/ml inj SUBQ SCH (21:00)
--- NOTE | 2020-01-14 21:45 | NUR ---
NURSE NOTES: NOTIFIED DR. HENDERSON REGARDING B/P OF WITH NEW ORDER TO GIVE 1/2 NS BOLUS X 1 LITER.
[2020-01-14] MEDS: NovoLOG Insulin Flexpen SUBQ SCH (21:56)
[2020-01-14] MEDS: Piperacillin/Tazobactam 3.375 GM in NS 110 ML IVPB SCH (22:14)
[2020-01-14] MEDS ORDERED: Varibar Thin Liquid powder 148gm MC PRN (22:15)
[2020-01-14] MEDS ORDERED: Varibar Pudding 230ml MC PRN (22:15)
[2020-01-14] MEDS ORDERED: Varibar Nectar 240ml MC PRN (22:15)
[2020-01-14] MEDS ORDERED: Varibar Honey 250ml MC PRN (22:15)
--- NOTE | 2020-01-14 22:30 | NUR ---
NURSE NOTES: B/P RECHECK 99/56, HR 96
[2020-01-15] VITALS: BP 120/66
--- NOTE | 2020-01-15 00:03 | NUR ---
NURSE NOTES: NOTIFIED OF TROPONIN LEVEL OF 4.465 AWAITING CALL CALL
--- NOTE | 2020-01-15 02:09 | NUR ---
NURSE NOTES: DR. GAR ADDED DR. MILES CARDIO CONSULT FOR ELEVATED TROPONIN
[2020-01-15 04:00] VITALS: BP 134/66
[2020-01-15] MEDS: Piperacillin/Tazobactam 3.375 GM in NS 110 ML IVPB SCH ×3 (05:34→21:33)
--- NOTE | 2020-01-15 06:00 | NUR ---
NURSE NOTES: NOTIFIED DR JOY OF PT BS OF 592, COVER GIVEN ORDERED.
[2020-01-15] MEDS: NovoLOG Insulin Flexpen SUBQ SCH ×4 (06:14→21:00)
--- NOTE | 2020-01-15 06:30 | NUR ---
NURSE NOTES: BS RECHECK [address] HENDERSON AWAITING RETURN CALL.
--- NOTE | 2020-01-15 07:26 | NUR ---
NURSE NOTES: Report received from TIM Baker. Pt is A/O x0 and non-verbal and unable to follow commands. Pt is on O2 at 2L via NC with saturation 94-95%. No SOB or acute distress noted. No pain noted. Pt has a PIV on right hand and left hand and running 1/2NS @ 100cc/hr. Bed in lowest and locked, siderails up x2, and bed alarm on. Call light placed within reach.
[2020-01-15] MEDS ORDERED: NovoLOG Insulin Flexpen SUBQ SCH (07:30)
--- NOTE | 2020-01-15 07:30 | NUR ---
NURSE NOTES: Received new order for evalated glocuse or 532 to give additional 10 units of Novolog which carried out and will be given.
[2020-01-15 08:00] VITALS: BP 83/47
--- NOTE | 2020-01-15 08:08 | NUR ---
NURSE NOTES: Received new order to stop SQ heparin and start heparin drip for NSTEMI per pharmacy protocol. and to give 1 liter NS bolus to the pt because also reported that BP was 83/47.
[2020-01-15] MEDS ORDERED: Heparin 25,000u/D5W 500ml 500 ML IV SCH (08:30)
[2020-01-15] MEDS ORDERED: Heparin 5000 units/ml inj IV SCH (08:30)
[2020-01-15] MEDS: medroxyPROGESTERone 10mg tab ORAL SCH (08:41)
[2020-01-15] MEDS: Memantine 5 MG TAB ORAL SCH ×2 (08:41→17:50)
[2020-01-15] MEDS: Donepezil 10mg tab ORAL SCH (08:41)
[2020-01-15] MEDS ORDERED: Losartan 50mg tab ORAL SCH (09:00)
[2020-01-15 09:19] LABS: HEMATOCRIT 32.5 % (42.0-52.0); HEMOGLOBIN 11.7 G/DL (14.2-18.0); MEAN CORPUSCULAR VOLUME 88 FL (80-99); PLATELET COUNT 183 K/UL (150-450); RED BLOOD COUNT 3.71 M/UL (4.70-6.10); RED CELL DISTRIBUTION WIDTH 15.6 % (11.6-14.8); WHITE BLOOD COUNT 20.4 K/UL (4.8-10.8)
[2020-01-15 09:51] LABS: CALCIUM 7.2 MG/DL (8.5-10.1); CREATININE 2.3 MG/DL (0.55-1.30); POTASSIUM 3.2 MMOL/L (3.5-5.1)
[2020-01-15 09:55] LABS: ALANINE AMINOTRANSFERASE 18 U/L (12-78); ALBUMIN 2.3 G/DL (3.4-5.0); ALKALINE PHOSPHATASE 98 U/L (46-116); ASPARTATE AMINO TRANSFERASE 38 U/L (15-37); BILIRUBIN,DIRECT 0.2 MG/DL (0.0-0.3); BILIRUBIN,TOTAL 0.8 MG/DL (0.2-1.0); PHOSPHORUS 3.8 MG/DL (2.5-4.9)
--- NOTE | 2020-01-15 10:43 | Consultation ---
Consult Note Consult Note I am asked to evaluate the patient at the request of Dr. Romero for renal failure and abnormal electrolytes Patient seen and examined Lab data reviewed Discussed with RN Full note to follow Emergency room note: Patient is brought in by EMS from half-way facility. Apparently was more altered today and they found that he had high blood sugar. Patient has dementia and is unable to answer questions. Apparently he tested negative for COVID on Friday. 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 COVID-19 Screening: Negative COVID-19 COVID-19 Testing Source: nasal Limited by: medical condition Past Medical History: see triage record, old chart reviewed Social History Narrative half-way facility - DNR Reviewed Nursing Documentation: PMH: Agreed; PSxH: Agreed Past Medical History: No History, Except For Hx Cardiac Problems: Yes Hx Hypertension: Yes Hx Gastrointestinal Problems: Yes - dysphagia Hx Neurological Problems: Yes - encephalopathy, syncope Vital Signs Date Time Temp Pulse Resp B/P (MAP) Pulse Ox O2 Delivery O2 Flow Rate FiO2 01/14/20 13:42 97.7 121 28 97/71 (80) 94 Room Air PHYSICAL EXAMINATION: VITAL SIGNS: Blood pressure 93/52, it was as low as 82/47. Pulse 79, respirations 18, temperature 97.3. HEAD AND NECK: Showed no JVD. LUNGS: Coarse rhonchi. CARDIOVASCULAR: Shows regular S1 and S2 with no gallop or murmur. ABDOMEN: Soft. EXTREMITIES: No pitting edema. LABORATORY AND DIAGNOSTIC DATA: Labs show white count was 23.2, down to 20.4; hemoglobin 11.7, hematocrit 32.5, and platelet count of 183,000. Sodium was 164, potassium 3.2, BUN of 73, creatinine 2.3, and glucose of 453. His troponin was 4.2, then 4.4, then 4.3, and then 4.6. . Assessment/Plan Patient admitted with altered mental status and sepsis. From renal standpoint to view the chemistry panel suggestive of dehydration and mainly prerenal acidemia. The ER doctor states that the patient has end-stage renal disease on hemodialysis however no fistula and no permacath was detected upon examination of the patient Hyperglycemia Evidence of UTI Hypernatremia Elevated troponin Suggestions: Half-normal saline 100 cc an hour Urine for spot sodium, urine for eosinophils Monitor renal parameters Keep the blood sugar in check Fluid challenge, hemodynamic support Avoid nephrotoxic's Per orders Phuc Allen MD Jan 15, 2020 10:43
--- NOTE | 2020-01-15 10:45 | History and Physical Report ---
DATE OF ADMISSION: 01/14/2020 REASON FOR ADMISSION: Probable sepsis, diabetes out of control. HISTORY OF PRESENT ILLNESS: This is an 84-year-old male, presents with electrolyte imbalance and leukocytosis. The patient was brought in from a [facility] with high blood sugars. The patient with significant dementia, unable to give any answers. The patient with history of end-stage renal disease not on dialysis. The patient has had prior discharges with dementia, BPH. The patient's prior medical problems reviewed. The patient now admitted. In the emergency room, the patient was seen and evaluated, was given IV hydration and treated with antibiotics. The patient also noted to have an elevated troponin and Cardiology was called. The patient with a history of dementia as mentioned, history of end-stage renal disease. MEDICATIONS: Reviewed. ALLERGIES: Reviewed. REVIEW OF SYSTEMS: Unobtainable. The patient does have a history of BPH. SOCIAL HISTORY: The [facility]. PHYSICAL EXAMINATION: GENERAL: An ill-appearing male. VITAL SIGNS: The patient had been hypotensive intermittently overnight, 134/66, 84, currently sats 98%. The patient is afebrile, 98.5. HEENT: Negative. NECK: Supple. LUNGS: With moderate breath sounds currently without rhonchi or wheezes. CARDIAC: S1, S2. Regular rate and rhythm. ABDOMEN: Soft, nontender. EXTREMITIES: No cyanosis or clubbing. NEUROLOGIC: The patient is confused. LABORATORY DATA: Reviewed. Sodium 164. BUN and creatinine 69 and 2.1. Troponin 4.26. Blood sugars has been elevated throughout the night. White count 23.2, platelets 305. IMPRESSION: 1. Leukocytosis, likely sepsis. 2. Hypernatremia, likely prerenal. 3. End-stage renal disease. 4. Diabetes, out of control. 5. Evidence of coronary artery disease and non-STEMI. 6. Lactic acidemia. RECOMMENDATIONS: The patient is a Do Not Resuscitate. We will call Renal, Cardiology to see. We will call ID to assist. IV hydration for now and boluses as needed. Empiric antibiotics. Heparin drip for acute [place]. Resume fdc medicine, vancomycin and Zosyn for now. Pending cultures. Follow up laboratories today and adjust insulin as needed. The patient is on a high scale at present. Consider insulin drip as needed. Sebastian Oneal M.D. DR: JOSE JOB#: [id number] CC: DORI
--- NOTE | 2020-01-15 11:17 | Diagnostic Imaging Report ---
EXAM: US Retroperitoneal Limited, Renal CLINICAL HISTORY: RENAL-A TECHNIQUE: Real-time limited ultrasound of the retroperitoneum with image documentation. COMPARISON: Renal ultrasound dated 12/21/18. FINDINGS: Right kidney: Simple appearing right renal cortical cysts, measuring 2. 5 x 2.1 x 1.8 cm and 0.9 x 0.8 x 0.7 cm respectively. Right kidney measures 9.5 x 4.7 x 4.6 cm. Normal cortical thickness. No visible stones. No hydronephrosis. Left kidney: 6 x 5 x 3 mm shadowing stone in the left lower renal pole. Left kidney measures 10.4 x 5.7 x 4.8 cm. Normal cortical thickness. No visible parenchymal lesions. No hydronephrosis. Other findings: The neobladder prevoid volume of 59 cc. Prostate gland measures 2.9 x 2.7 x 4.5 cm with estimated volume of 18.3 cc. IMPRESSION: 1. 6 x 5 x 3 mm nonobstructive stone in the left lower renal pole. No hydronephrosis. 2. Simple appearing right renal cortical cysts, measuring 2.5 x 2.1 x 1. 8 cm and 0.9 x 0.8 x 0.7 cm respectively.
[2020-01-15] MEDS ORDERED: Vancomycin 1gm in D5W 275ml IVPB ONE (11:30)
[2020-01-15 12:00] VITALS: BP 91/48
--- NOTE | 2020-01-15 12:15 | Consultation ---
DATE OF CONSULTATION: 01/15/2020 INFECTIOUS DISEASES CONSULTATION CONSULTING PHYSICIAN: Wendie Frias MD. REFERRING PHYSICIAN: Sebastian Oneal MD. REASON FOR CONSULTATION: Leukocytosis. HISTORY OF PRESENTING ILLNESS: This is an 84-year-old gentleman with history of dementia, renal failure on dialysis, benign prostatic hypertrophy, who came in with high sugars. He was found to have a leukocytosis and an Infectious Diseases consultation has been obtained for antibiotics. PAST MEDICAL HISTORY: 1. History of dementia. 2. Benign prostatic hypertrophy. 3. Renal failure, on dialysis. SOCIAL HISTORY: Unknown. FAMILY HISTORY: Unknown. REVIEW OF SYSTEMS: Unable to obtain currently. MEDICATIONS: As an inpatient, he is on albumin, IV vancomycin, Protonix, Namenda, medroxyprogesterone, benazepril, heparin, Zosyn, Proscar, insulin, Tylenol. ALLERGIES: No known drug allergies. PHYSICAL EXAMINATION: VITAL SIGNS: Temperature of 98, T-max of 98.5, pulse of 89, respiratory rate 20, blood pressure 83/47, O2 saturation of 98% on 2 L of oxygen. HEENT: Pupils are equally reactive to light and accommodation. Mouth appears clean without thrush. NECK: Supple. No adenopathy. No JVD. CARDIOVASCULAR: Regular rate and rhythm. No murmurs. LUNGS: Clear to auscultation bilaterally. No crackles. No wheezes. ABDOMEN: Soft, nontender. No organomegaly. EXTREMITIES: No cyanosis, no clubbing, no edema. LABORATORY AND DIAGNOSTIC DATA: White count of 23.2 on 01/14/2020, white count of 20.4 on 01/15/2020, hemoglobin 11.7, hematocrit 32.5, MCV 88, platelet count of 183, with neutrophils of 73%. Sodium 162, potassium 3.2, chloride 132, bicarb 15, BUN 76, creatinine 2.3, glucose 453, calcium of 7.2. Total bilirubin 0.8, direct bilirubin 0.2. AST 38, ALT 18, alkaline phosphatase 98. Troponin 4.3. Total protein 5.6, albumin 2.3. Lipase of 138. Beta-natriuretic peptide 1222. UA is showing 60 to 80 white cells. Chest x-ray was unremarkable. ASSESSMENT: This is an 84-year-old gentleman with history of dementia, BPH, renal failure on dialysis, who comes in and was found to have. 1. Urinary tract infection. 2. Leukocytosis is improving. 3. Hyperglycemia. 4. Benign prostatic hypertrophy. 5. Renal failure, on dialysis. PLAN: 1. Continue IV vancomycin and Zosyn for now. 2. We will follow up cultures and adjust antibiotics accordingly 3. We will order COVID-19 test. I would like to thank, Dr. Oneal for this consultation. Wendie Frias M.D. DR: ELBA JOB#: [id number] CC: Sebastian Oneal MD.; Fax#: [phone]
--- NOTE | 2020-01-15 12:44 | NUR ---
NURSE NOTES: Received new order for 40mg IV lasix and clarified with with Dr. Huang that he only wants an additional 20mg given adn the 40mg to start tomorrow morning. Called [email or web address] to clarify. Will carry out an order for 20mg IV Lasix with a one time dose. Addendum: 01/15/20 at 1248 by Maddi Aguirre RN Wrong pt
--- NOTE | 2020-01-15 12:53 | NUR ---
NURSE NOTES: Contacted Dr. Oneal regardign pt pulling his IV's and NC and for his safety to be able to apply bilateral restraints. Dr. Oneal agreed. Carried out the order.
--- NOTE | 2020-01-15 12:57 | Cardiology Report ---
APPROVED REPORT EKG Measurement Heart [id number] <Conclusion> Sinus tachycardia Nonspecific ST and T wave abnormality Abnormal ECG
--- NOTE | 2020-01-15 13:50 | Cardiology Report ---
APPROVED REPORT EXAM: Two-dimensional and M-mode echocardiogram with Doppler and color Doppler. INDICATION ALTERED LOC M-Mode DIMENSIONS IVSd0.8 (0.7-1.1cm)Left Atrium (MM)3.8 (1.6-4.0cm) LVDd4.5 (3.5-5.6cm)Aortic Root3.6 (2.0-3.7cm) PWd0.8 (0.7-1.1cm)Aortic Cusp Exc.1.9 (1.5-2.0cm) IVSs1.6 cm LVDs2.9 (2.5-4.0cm) PWs1.0 cm <Conclusion> Technically difficult study due to poor acoustical windows & pts resistance. Normal left ventricular chamber size, systolic function and wall motion to extent visualized. Left ventricular ejection fraction estimated to be 60-65%. Anterior Echo-free space, may be due to pericardial fat or effusion. All other cardiac chamber sizes are within normal limits. Calcification of aortic valve with adequate cusp excursion. Thickened mitral valve leaflets with normal excursion. Mitral annulus and aortic root calcification. Pulmonic valve not well visualized. Normal tricuspid valve structure. Subcostal views not obtained due patient refusal. A color flow and spectral Doppler study was performed and revealed: Mild mitral regurgitation. Mitral diastolic velocities suggest reduced left ventricular relaxation c/w mild LV diastolic dysfunction (Grade I ). Mild tricuspid regurgitation. Tricuspid systolic velocities suggests peak right ventricular systolic pressure of 26 mmHg.
[2020-01-15] MEDS: Midodrine 10mg tab ORAL SCH ×2 (14:43→21:33)
[2020-01-15 16:00] VITALS: BP 93/52
--- NOTE | 2020-01-15 17:25 | Cardiac Electrophysiology PN ---
Subjective Subjective All 4 troponins are flat and around 4. DC heparin drip Nonverbal, septic , renal failure and hypernatremic. 84 year or demented, DNR Medical therapy Not a cath candidate Dictated [id number] Objective Last 24 Hour Vital Signs Date Time Temp Pulse Resp B/P (MAP) Pulse Ox O2 Delivery O2 Flow Rate FiO2 01/15/20 16:00 97.3 79 20 93/52 (66) 98 01/15/20 16:00 74 01/15/20 12:00 85 01/15/20 12:00 97.6 89 20 91/48 (62) 97 01/15/20 09:00 Nasal Cannula 2.0 01/15/20 08:43 83/47 01/15/20 08:00 98.0 89 20 83/47 (59) 98 01/15/20 08:00 89 01/15/20 04:00 98.2 84 20 134/66 (88) 98 01/15/20 04:00 82 01/15/20 00:00 74 01/15/20 00:00 98.0 88 22 120/66 (84) 96 01/14/20 22:05 Nasal Cannula 2.0 01/14/20 20:00 98.5 98 22 92/56 (68) 97 01/14/20 20:00 95 01/14/20 18:03 97.7 102 26 116/73 100 Nasal Cannula 2.0 Intake and Output 01/14/20 01/15/20 19:00 07:00 Intake Total 150 ml Balance 150 ml Intake Oral 150 ml # Voids 2 # Bowel Movements 2 Laboratory Tests Test 01/14/20 17:50 01/14/20 20:52 01/14/20 23:20 01/15/20 05:57 Sodium Level 164 MMOL/L (136-145) *H Potassium Level 2.9 MMOL/L (3.5-5.1) L Chloride Level 132 MMOL/L (98-107) H Carbon Dioxide Level 16 MMOL/L (21-32) L Blood Urea Nitrogen 69 mg/dL (7-18) H Creatinine 2.1 MG/DL (0.55-1.30) H Estimat Glomerular Filtration Rate 30.2 mL/min (>60) Glucose Level 570 MG/DL (74-106) #*H Lactic Acid Level 6.20 mmol/L (0.66-2.22) H Calcium Level 7.7 MG/DL (8.5-10.1) #L POC Whole Blood Glucose 491 MG/DL (74-106) H 592 MG/DL (74-106) *H Troponin I 4.465 ng/mL (0.000-0.056) Test 01/15/20 07:00 01/15/20 09:00 01/15/20 09:08 01/15/20 16:05 POC Whole Blood Glucose 531 MG/DL (74-106) *H Activated Partial Thromboplast Time 28 SEC (23-33) 91 SEC (23-33) H Uric Acid 7.4 MG/DL (2.6-7.2) H Phosphorus Level 3.8 MG/DL (2.5-4.9) Magnesium Level 2.2 MG/DL (1.8-2.4) Total Bilirubin 0.8 MG/DL (0.2-1.0) Direct Bilirubin 0.2 MG/DL (0.0-0.3) Aspartate Amino Transf (AST/SGOT) 38 U/L (15-37) H Alanine Aminotransferase (ALT/SGPT) 18 U/L (12-78) Alkaline Phosphatase 98 U/L (46-116) Total Protein 5.6 G/DL (6.4-8.2) #L Albumin 2.3 G/DL (3.4-5.0) L White Blood Count 20.4 K/UL (4.8-10.8) H Red Blood Count 3.71 M/UL (4.70-6.10) L Hemoglobin 11.7 G/DL (14.2-18.0) L Hematocrit 32.5 % (42.0-52.0) #L Mean Corpuscular Volume 88 FL (80-99) Mean Corpuscular Hemoglobin 31.4 PG (27.0-31.0) H Mean Corpuscular Hemoglobin Concent 35.8 G/DL (32.0-36.0) Red Cell Distribution Width 15.6 % (11.6-14.8) H Platelet Count 183 K/UL (150-450) Mean Platelet Volume 6.9 FL (6.5-10.1) Neutrophils (%) (Auto) % (45.0-75.0) Lymphocytes (%) (Auto) % (20.0-45.0) Monocytes (%) (Auto) % (1.0-10.0) Eosinophils (%) (Auto) % (0.0-3.0) Basophils (%) (Auto) % (0.0-2.0) Differential Total Cells Counted 100 Neutrophils % (Manual) 73 % (45-75) Lymphocytes % (Manual) 14 % (20-45) L Monocytes % (Manual) 4 % (1-10) Eosinophils % (Manual) 0 % (0-3) Basophils % (Manual) 0 % (0-2) Band Neutrophils 9 % (0-8) H Platelet Estimate Adequate Platelet Morphology Normal Anisocytosis 1+ Sodium Level 162 MMOL/L (136-145) *H Potassium Level 3.2 MMOL/L (3.5-5.1) L Chloride Level 132 MMOL/L (98-107) H Carbon Dioxide Level 15 MMOL/L (21-32) L Anion Gap 16 mmol/L (5-15) H Blood Urea Nitrogen 76 mg/dL (7-18) H Creatinine 2.3 MG/DL (0.55-1.30) H Estimat Glomerular Filtration Rate 27.2 mL/min (>60) Glucose Level 453 MG/DL (74-106) #H Calcium Level 7.2 MG/DL (8.5-10.1) L Troponin I 4.300 ng/mL (0.000-0.056) 4.662 ng/mL (0.000-0.056) Random Vancomycin Level 9.3 ug/mL Microbiology Date/Time Source Procedure Growth Status 01/15/20 12:15 Nasopharynx SARS-CoV-2 RdRp Gene Assay - Final Complete 01/14/20 17:52 Rectum Received 01/14/20 17:16 Nasopharynx Coronavirus COVID-19 PCR ([facility]) - Final Complete 01/14/20 14:50 Blood Blood Culture - Preliminary NO GROWTH AFTER 24 HOURS Resulted 01/14/20 14:40 Blood Blood Culture - Preliminary NO GROWTH AFTER 24 HOURS Resulted Jose Womack MD Jan 15, 2020 17:25
--- NOTE | 2020-01-15 18:00 | NUR ---
NURSE NOTES: Was informed by Dr. Richard he was stopping the heparin drip and ordering troponin tomorrow and for the nurse not to contact if it was under 5. Wrote order under other nursing orders and will endorse. Heparin drip was stopped with the Charge as a co sign.
--- NOTE | 2020-01-15 18:10 | NUR ---
NURSE NOTES: Lab called regarding troponin being [address] Womack was told because he was on the floor. Dr. Richard acknowledged and ordered an additional Troponin tomorrow morning.
--- NOTE | 2020-01-15 19:32 | NUR ---
NURSE HAND-OFF REPORT: Important Events on Shift: Heparin drip stopped. Patient Status: Stable Diet: Regular Puree Moist with NTL Pending Orders: Pending Results/Labs: Pending MD notification:Troponin was relyed to Dr. Womack when he was on the floor of 4.662. Latest Vital Signs: Temperature 97.3 , Pulse 74 , B/P 93 /52 , Respiratory Rate 20 , O2 SAT 98 , Nasal Cannula, O2 Flow Rate 2.0 . Vital Sign Comment: EKG Rhythm: Sinus Rhythm Rhythm change?: N MD Notified?: N -Dr. Vu KESSLER Response: Latest Eric Fall Score: 70 Fall Risk: High Risk Safety Measures: Call light Within Reach, Bed Alarm Zone 2, Side Rails Side Rails x3, Bed position Low and Locked. Fall Precautions: Yellow Socks Yellow Gown Patient Fall Education Report given to
--- NOTE | 2020-01-15 19:40 | NUR ---
NURSE NOTES: RECEIVED PATIENT FROM STEVEN DUMONT. A/OX0 IN BED. PATIENT IS SLEEPING AT THIS TIME. NO PAIN NOTED AT THIS TIME. NO DISCOMFORT NOTED.PATIENT IS BILATERAL WRIST RESTRAINTS D/T PULLING OUT MEDICAL DEVICES. NO SWEALING NOTED, SENSATION INTACT, PULES PALPATED. HYDRATION NEEDS OFFERED, ELIMINATION NEEDS OFFERED. IV LEFT FA 22g S/L; FLUSHED PATENT; NO ERYTHEMA OR BLEEDING NOTED. IV SITE RIGHT 22g HAND RUNNING 1/2 NS@100. FLUSHED PATENT; NO ERYTHEMA OR BLEEDING NOTED. BED IN THE LOWEST POSITION. SIDERAILS ARE UP X2, CALL LIGHT IS WITHIN REACH. WILL CONT TO MONITOR.
[2020-01-15 20:00] VITALS: BP 98/48
--- NOTE | 2020-01-15 20:15 | Consultation ---
DATE OF CONSULTATION: 01/15/2020 CARDIOLOGY CONSULTATION CONSULTING PHYSICIAN: Jose Womack MD REFERRING PHYSICIAN: Sebastian Oneal MD REASON FOR CONSULTATION: [id number] myocardial infarction. HISTORY OF PRESENT ILLNESS: The patient is an 84-year-old gentleman with history of hypertension and diabetes, who [facility] electrolyte imbalance and leukocytosis. His blood sugar was very high. The patient has significant dementia and was not able to provide any information. The patient also has history of end-stage renal disease, on dialysis. The patient was noted to have elevated troponin of more than 4, and Cardiology consultation was obtained for further evaluation. At the time of my evaluation, the patient denies any symptoms and is nonverbal and is in restraints. Currently, he is on heparin drip. His rapid COVID was negative and echocardiogram showed ejection fraction of 60%. His creatinine was 2.7. He initially was in sinus rhythm, then converted to atrial fibrillation, and back to sinus rhythm. His EKG showed lateral T-wave inversion suggestive of ischemia. REVIEW OF SYSTEMS: Cannot be obtained. PAST MEDICAL HISTORY: As mentioned above. FAMILY HISTORY: Noncontributory. SOCIAL HISTORY: half-way resident. No history of smoking or drinking. PHYSICAL EXAMINATION: VITAL SIGNS: Blood pressure 93/52, it was as low as 82/47. Pulse 79, respirations 18, temperature 97.3. HEAD AND NECK: Showed no JVD. LUNGS: Coarse rhonchi. CARDIOVASCULAR: Shows regular S1 and S2 with no gallop or murmur. ABDOMEN: Soft. EXTREMITIES: No pitting edema. LABORATORY AND DIAGNOSTIC DATA: Labs show white count was 23.2, down to 20.4; hemoglobin 11.7, hematocrit 32.5, and platelet count of 183,000. Sodium was , potassium 3.2, BUN of 73, creatinine 2.3, and glucose of 453. His troponin was 4.2, then 4.4, then 4.3, and then 4.6. ASSESSMENT AND PLAN: 1. Four elevated troponin, all more than 4. The EKG does not show any ST elevation; however, there is inferolateral T-wave inversion suggestive of ischemia. The elevated troponin may be partially due to the patient's renal failure and dehydration. Sodium is also 162 as well. The patient is nonverbal and is DNR. We will treat the patient medically. Cannot give the patient beta-kim in view of hypotension. I will just keep the patient on aspirin and watch the patient clinically. In view of the level of troponin, I will discontinue heparin drip. 2. Hypotension, on midodrine 10 mg 3 times daily. Echocardiogram showed normal left ventricular systolic function. 3. Uncontrolled diabetes. 4. Sepsis. White count of 23,000, on antibiotics. 5. End-stage renal disease. Reportedly, the patient is on hemodialysis; however, there is no fistula and there is no PermCath examination. He is on half-normal saline. Further evaluation by Dr. Allen. 6. Severe hypernatremia, again on IV fluids, per Dr. Allen. 7. UTI. Thank you very much for allowing me to participate in the care of this patient. Please do not hesitate to contact me for any questions regarding my evaluation. Jose Womack M.D. DR: Apolonia JOB#: [id number] CC:
[2020-01-15] MEDS ORDERED: Atorvastatin 20mg tab ORAL SCH (21:00)
[2020-01-16] VITALS: BP 96/51
[2020-01-16 04:00] VITALS: BP 91/45
[2020-01-16] MEDS: Piperacillin/Tazobactam 3.375 GM in NS 110 ML IVPB SCH ×3 (05:34→22:06)
[2020-01-16] MEDS: Midodrine 10mg tab ORAL SCH ×2 (05:37→17:31)
[2020-01-16] MEDS: NovoLOG Insulin Flexpen SUBQ SCH ×4 (05:37→22:08)
--- NOTE | 2020-01-16 07:05 | NUR ---
NURSE HAND-OFF REPORT: Important Events on Shift: Patient Status: No acute distress Diet: Cardiac diet puree NTL Pending Orders: Pending Results/Labs: AM labs Pending MD notification: Latest Vital Signs: Temperature 97.8 , Pulse 56 , B/P 91 /45 , Respiratory Rate 18 , O2 SAT 99 , Nasal Cannula, O2 Flow Rate 2.0 . Vital Sign Comment: EKG Rhythm: Sinus Bradycardia Rhythm change?: Y MD Notified?: N -Dr. Vu KESSLER Response: Latest Eric Fall Score: 70 Fall Risk: High Risk Safety Measures: Call light Within Reach, Bed Alarm Zone 2, Side Rails Side Rails x3, Bed position Low and Locked. Fall Precautions: Yellow Socks Yellow Gown Patient Fall Education Report given to Adam DUMONT.
--- NOTE | 2020-01-16 07:27 | NUR ---
NURSE NOTES: Received report from Alice Moniuqe RN. Patient in semi-Gan's position, sleeping, per report, patient is A&Ox0, respirations at 15 breaths per minute, bed in lowest position, bed alarm on, side rails up x 3, wheels locked, call light within reach, no S/S of pain, no SOB, on 2 liters nasal cannula saturating at 95%, bilateral soft wrist restraints in place, condom cather in place. in no apparent distress.
[2020-01-16 08:00] VITALS: BP 122/69
[2020-01-16 08:55] LABS: IRON 80 ug/dL (50-175); TOTAL IRON BINDING CAPACITY 126 ug/dL (250-450)
[2020-01-16 08:59] LABS: % IRON SATURATION 63 % (15-50); ALBUMIN/GLOBULIN RATIO 0.8 (1.0-2.7); BILIRUBIN,TOTAL 0.7 MG/DL (0.2-1.0); CALCIUM 7.8 MG/DL (8.5-10.1); POTASSIUM 3.9 MMOL/L (3.5-5.1)
[2020-01-16 09:05] LABS: CREATINE KINASE 1069 U/L (26-308); GAMMA GLUTAMYL TRANSPEPTIDASE 30 U/L (5-85); PHOSPHORUS 3.9 MG/DL (2.5-4.9)
--- NOTE | 2020-01-16 09:15 | NUR ---
NURSE NOTES: Reported to Dr. Niko Oneal voicemail service that [id number], trending down, troponin=4.652, there is an order not to call Dr. Jose Womack unless troponin is greater than or equal to 5.0.
[2020-01-16 09:25] LABS: BASOPHILS % (AUTO) 0.6 % (0.0-2.0); HEMATOCRIT 35.6 % (42.0-52.0); HEMOGLOBIN 12.6 G/DL (14.2-18.0); LYMPHOCYTES % (AUTO) 23.2 % (20.0-45.0); MEAN CORPUSCULAR VOLUME 89 FL (80-99); MONOCYTES % (AUTO) 4.3 % (1.0-10.0); NEUTROPHILS % (AUTO) 69.7 % (45.0-75.0); PLATELET COUNT 152 K/UL (150-450)
[2020-01-16] MEDS ORDERED: 1/2 NS 1000ml IV ONE ×2 (09:25→18:22)
[2020-01-16] MEDS: Donepezil 10mg tab ORAL SCH (09:32)
[2020-01-16] MEDS: Aspirin EC 81mg tab ORAL SCH (09:33)
[2020-01-16] MEDS: Memantine 5 MG TAB ORAL SCH ×2 (09:33→17:45)
[2020-01-16] MEDS: medroxyPROGESTERone 10mg tab ORAL SCH (09:33)
--- NOTE | 2020-01-16 11:20 | NUR ---
NURSE NOTES: Morning labs reported to Dr. Niko Oneal and Dr. Phuc Allen. No new orders.
--- NOTE | 2020-01-16 11:31 | General Progress Note ---
Subjective Allergies: Coded Allergies: No Known Allergies (Verified , 08/20/09) Subjective all consultants appreciated no distress still with elevated sodium Objective Last 24 Hour Vital Signs Date Time Temp Pulse Resp B/P (MAP) Pulse Ox O2 Delivery O2 Flow Rate FiO2 01/16/20 08:00 97.6 57 20 122/69 (86) 100 01/16/20 08:00 43 01/16/20 04:00 56 01/16/20 04:00 97.8 82 18 91/45 (60) 99 01/16/20 00:00 96.0 87 20 96/51 (66) 100 01/16/20 00:00 75 01/15/20 21:00 Nasal Cannula 2.0 01/15/20 20:00 98.2 70 20 98/48 (65) 100 01/15/20 20:00 68 01/15/20 16:00 97.3 79 20 93/52 (66) 98 01/15/20 16:00 74 01/15/20 12:00 85 01/15/20 12:00 97.6 89 20 91/48 (62) 97 Intake and Output 01/15/20 01/16/20 19:00 07:00 Intake Total 220 ml 1250.5 ml Output Total 400 ml 500 ml Balance -180 ml 750.5 ml Intake Oral 120 ml IV Total 100 ml 1250.5 ml Output Urine Total 400 ml 500 ml # Voids 1 Laboratory Tests 01/15/20 16:05: Activated Partial Thromboplast Time 91H, Troponin I 4.662H 01/15/20 20:40: POC Whole Blood Glucose 124H 01/16/20 05:52: Troponin I 4.652H, White Blood Count 13.0H, Red Blood Count 4.00L, Hemoglobin 12.6L, Hematocrit 35.6L, Mean Corpuscular Volume 89, Mean Corpuscular Hemoglobin 31.4H, Mean Corpuscular Hemoglobin Concent 35.3, Red Cell Distribution Width 16.0H, Platelet Count 152, Mean Platelet Volume 6.7, Neutrophils (%) (Auto) 69.7, Lymphocytes (%) (Auto) 23.2, Monocytes (%) (Auto) 4.3, Eosinophils (%) (Auto) 2.0, Basophils (%) (Auto) 0.6, Sodium Level 160H, Potassium Level 3.9, Chloride Level 129H, Carbon Dioxide Level 17L, Anion Gap 15, Blood Urea Nitrogen 58H, Creatinine 2.0H, Estimat Glomerular Filtration Rate 32.0, Glucose Level 173#H, Lactic Acid Level 2.00, Uric Acid 6.3, Calcium Level 7.8L, Phosphorus Level 3.9, Magnesium Level 2.2, Iron Level 80, Total Iron Binding Capacity 126L, Percent Iron Saturation 63H, Unsaturated Iron Binding 46L, Ferritin 791H, Total Bilirubin 0.7, Gamma Glutamyl Transpeptidase 30, Aspartate Amino Transf (AST/SGOT) 44H, Alanine Aminotransferase (ALT/SGPT) 17, Alkaline Phosphatase 84, Total Creatine Kinase 1069H, C-Reactive Protein, Quantitative 10.1H, Pro-B-Type Natriuretic Peptide 3350H, Total Protein 7.0, Albumin 3.0L, Globulin 4.0, Albumin/Globulin Ratio 0.8L, Vitamin B12 Level 655, Folate 5.2L Height (Feet): 5 Height (Inches): 7.00 Weight (Pounds): 161 Objective WDWN NAD clear breath sounds bilaterally without rhonchi or wheeze [id number] without MRG NABS nontender no HSM no CCE nonfocal altered Assessment/Plan Assessment/Plan: IMPRESSION: 1. Leukocytosis, likely sepsis. 2. Hypernatremia, likely prerenal. 3. End-stage renal disease. 4. Diabetes, out of control. 5. Evidence of coronary artery disease and non-STEMI. 6. Lactic acidemia. RECOMMENDATIONS: Do Not Resuscitate. We will call Renal, noted Cardiology and ID. IV hydration for now and boluses as needed. Empiric antibiotics and await cultures. Heparin drip off. prison medicine, vancomycin and Zosyn. Follow up laboratories data. impression, plan, and exam edited and reviewed in detail care discussed with Sebastian Khalil MD Jan 16, 2020 11:31
--- NOTE | 2020-01-16 11:42 | Nephrology Progress Note ---
Assessment/Plan Problem List: (1) Renal failure (ARF), acute on chronic (2) BPH (benign prostatic hyperplasia) (3) AMS (altered mental status) (4) Sepsis (5) Hyperglycemia (6) Elevated troponin (7) UTI (urinary tract infection) (8) Hypernatremia Assessment Patient admitted with altered mental status and sepsis. From renal standpoint to view the chemistry panel suggestive of dehydration and mainly prerenal acidemia. The ER doctor states that the patient has end-stage renal disease on hemodialysis however no fistula and no permacath was detected upon examination of the patient Hyperglycemia Evidence of UTI Hypernatremia Elevated troponin Plan January 15: Labs reviewed. Electrolyte within normal range. Serum creatinine lowering. CPK remains elevated. Cholesterol-lowering agent discontinued. Continue to monitor renal parameters and electrolytes. Serum troponin up over 4. Per orders. Will check lipid panel. Continue per consultants. January 14: Half-normal saline 100 cc an hour Urine for spot sodium, urine for eosinophils Monitor renal parameters Keep the blood sugar in check Fluid challenge, hemodynamic support Avoid nephrotoxic's Per orders Subjective ROS Limited/Unobtainable: Yes Objective Objective Last 24 Hour Vital Signs Date Time Temp Pulse Resp B/P (MAP) Pulse Ox O2 Delivery O2 Flow Rate FiO2 01/16/20 08:00 97.6 57 20 122/69 (86) 100 01/16/20 08:00 43 01/16/20 04:00 56 01/16/20 04:00 97.8 82 18 91/45 (60) 99 01/16/20 00:00 96.0 87 20 96/51 (66) 100 01/16/20 00:00 75 01/15/20 21:00 Nasal Cannula 2.0 01/15/20 20:00 98.2 70 20 98/48 (65) 100 01/15/20 20:00 68 01/15/20 16:00 97.3 79 20 93/52 (66) 98 01/15/20 16:00 74 01/15/20 12:00 85 01/15/20 12:00 97.6 89 20 91/48 (62) 97 Intake and Output 01/15/20 01/16/20 19:00 07:00 Intake Total 220 ml 1250.5 ml Output Total 400 ml 500 ml Balance -180 ml 750.5 ml Intake Oral 120 ml IV Total 100 ml 1250.5 ml Output Urine Total 400 ml 500 ml # Voids 1 Current Medications Medications (Trade) Dose Ordered Sig/Mily Route PRN Reason Start Time Stop Time Status Last Admin Dose Admin Acetaminophen (Tylenol) 325 mg Q4H PRN ORAL Mild Pain (Pain Scale 1-3) 01/14/20 20:30 02/13/20 20:29 Acetaminophen (Tylenol) 650 mg Q4H PRN ORAL Moderate Pain (Pain Scale 4-6) 01/14/20 20:30 02/13/20 20:29 Aspirin (Ecotrin) 81 mg DAILY ORAL 01/16/20 09:00 03/01/20 08:59 01/16/20 09:33 Barium Sulfate (Varibar Honey) 250 ml NOW PRN RAD 01/14/20 22:15 01/17/20 22:06 Barium Sulfate (Varibar [place]) 240 ml NOW PRN MC RAD 01/14/20 22:15 01/17/20 22:06 Barium Sulfate (Varibar Pudding) 230 ml NOW PRN MC RAD 01/14/20 22:15 01/17/20 22:06 Barium Sulfate (Varibar Thin Liquid powder) 148 gm NOW PRN MC RAD 01/14/20 22:15 01/17/20 22:06 Dextrose (Dextrose 50%) 25 ml Q30M PRN IV Hypoglycemia 01/14/20 20:15 04/13/20 20:14 Dextrose (Dextrose 50%) 50 ml Q30M PRN IV Hypoglycemia 01/14/20 20:15 04/13/20 20:14 Donepezil HCl (Aricept) 10 mg DAILY ORAL 01/15/20 09:00 02/14/20 08:59 01/16/20 09:32 Finasteride (Proscar) 5 mg QHS ORAL 01/14/20 21:00 04/13/20 20:59 01/15/20 21:33 Insulin Aspart (NovoLOG) BEFORE MEALS AND HS SUBQ 01/14/20 21:00 04/13/20 20:59 01/16/20 05:37 Medroxyprogesterone Acetate (Provera) 10 mg DAILY ORAL 01/15/20 09:00 04/14/20 08:59 01/16/20 09:33 Memantine (Namenda) 5 mg TWICE A DAY ORAL 01/15/20 09:00 02/14/20 08:59 01/16/20 09:33 Midodrine (Pro-Amatine) 10 mg Q8HR ORAL 01/15/20 14:45 04/14/20 14:44 01/16/20 05:37 Pantoprazole (Protonix) 40 mg BID ORAL 01/15/20 18:00 02/14/20 10:59 01/16/20 09:33 Piperacillin Sod/ Tazobactam Sod 3.375 gm/Sodium Chloride 110 ml @ 27.5 mls/hr Q8HR IVPB 01/14/20 22:00 01/21/20 21:59 01/16/20 05:34 Sodium Chloride 1,000 ml @ 75 mls/hr [id number] IV 01/14/20 20:15 02/13/20 20:14 01/16/20 02:01 Vancomycin HCl ([facility] pharmacy to dose) 1 ea DAILY PRN MISC rx protocol 01/15/20 09:00 02/14/20 08:59 Laboratory Tests 01/15/20 16:05: Activated Partial Thromboplast Time 91H, Troponin I 4.662H 01/15/20 20:40: POC Whole Blood Glucose 124H 01/16/20 05:52: Troponin I 4.652H, White Blood Count 13.0H, Red Blood Count 4.00L, Hemoglobin 12.6L, Hematocrit 35.6L, Mean Corpuscular Volume 89, Mean Corpuscular Hemoglobin 31.4H, Mean Corpuscular Hemoglobin Concent 35.3, Red Cell Distribution Width 16.0H, Platelet Count 152, Mean Platelet Volume 6.7, Neutrophils (%) (Auto) 69.7, Lymphocytes (%) (Auto) 23.2, Monocytes (%) (Auto) 4.3, Eosinophils (%) (Auto) 2.0, Basophils (%) (Auto) 0.6, Sodium Level 160H, Potassium Level 3.9, Chloride Level 129H, Carbon Dioxide Level 17L, Anion Gap 15, Blood Urea Nitrogen 58H, Creatinine 2.0H, Estimat Glomerular Filtration Rate 32.0, Glucose Level 173#H, Lactic Acid Level 2.00, Uric Acid 6.3, Calcium Level 7.8L, Phosphorus Level 3.9, Magnesium Level 2.2, Iron Level 80, Total Iron Binding Capacity 126L, Percent Iron Saturation 63H, Unsaturated Iron Binding 46L, Ferritin 791H, Total Bilirubin 0.7, Gamma Glutamyl Transpeptidase 30, Aspartate Amino Transf (AST/SGOT) 44H, Alanine Aminotransferase (ALT/SGPT) 17, Alkaline Phosphatase 84, Total Creatine Kinase 1069H, C-Reactive Protein, Quantitative 10.1H, Pro-B-Type Natriuretic Peptide 3350H, Total Protein 7.0, Albumin 3.0L, Globulin 4.0, Albumin/Globulin Ratio 0.8L, Vitamin B12 Level 655, Folate 5.2L Height (Feet): 5 Height (Inches): 7.00 Weight (Pounds): 161 General Appearance: no apparent distress, lethargic Cardiovascular: normal rate Respiratory/Chest: decreased breath sounds Abdomen: distended Phuc Allen MD Jan 16, 2020 11:42
[2020-01-16 12:00] VITALS: BP 111/51
[2020-01-16 12:13] LABS: CHOLESTEROL 149 MG/DL (< 200); HDL CHOLESTEROL 32 MG/DL (40-60); TRIGLYCERIDES 218 MG/DL (30-150)
--- NOTE | 2020-01-16 14:04 | Infectious Diseases Prog Note ---
Assessment/Plan Assessment/Plan A: 1. Urinary tract infection. 2. Leukocytosis is improving. 3. Hyperglycemia. 4. Benign prostatic hypertrophy. 5. Renal failure, 6. 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 Discontinue IV vancomycin 2. Continue Zosyn for now. 3. We will follow up cultures and adjust antibiotics accordingly Subjective ROS Limited/Unobtainable: Yes Neurologic: Reports: other - on restraint Allergies: Coded Allergies: No Known Allergies (Verified , 08/20/09) Objective Last 24 Hour Vital Signs Date Time Temp Pulse Resp B/P (MAP) Pulse Ox O2 Delivery O2 Flow Rate FiO2 01/16/20 12:00 63 01/16/20 12:00 97.8 58 20 111/51 (71) 100 01/16/20 09:00 Nasal Cannula 2.0 01/16/20 08:00 97.6 57 20 122/69 (86) 100 01/16/20 08:00 43 01/16/20 04:00 56 01/16/20 04:00 97.8 82 18 91/45 (60) 99 01/16/20 00:00 96.0 87 20 96/51 (66) 100 01/16/20 00:00 75 01/15/20 21:00 Nasal Cannula 2.0 01/15/20 20:00 98.2 70 20 98/48 (65) 100 01/15/20 20:00 68 01/15/20 16:00 97.3 79 20 93/52 (66) 98 01/15/20 16:00 74 Height (Feet): 5 Height (Inches): 7.00 Weight (Pounds): 161 HEENT: other - dry mouth Respiratory/Chest: lungs clear Cardiovascular: normal rate Abdomen: soft, non tender Genitourinary: other - murray catheter Extremities: other - right hand edema Neurologic/Psychiatric: other - sleeping Microbiology Date/Time Source Procedure Growth Status 01/15/20 12:15 Nasopharynx SARS-CoV-2 RdRp Gene Assay - Final Complete 01/14/20 17:52 Rectum VRE Culture - Final NO VANCOMYCIN RESISTANT ENTEROCOCCUS ... Complete 01/14/20 17:52 Nasal Nares MRSA Culture - Final Staphylococcus Aureus - Mrsa Complete 01/14/20 17:16 Nasopharynx Coronavirus COVID-19 PCR (ADRIAN) - Final Complete 01/14/20 14:50 Blood Blood Culture - Preliminary NO GROWTH AFTER 24 HOURS Resulted 01/14/20 14:40 Blood Blood Culture - Preliminary NO GROWTH AFTER 24 HOURS Resulted 01/14/20 14:30 Urine,Clean Catch Urine Culture - Preliminary Gram Negative Oz Resulted Laboratory Tests Test 01/15/20 16:05 01/15/20 20:40 01/16/20 05:52 Activated Partial Thromboplast Time 91 SEC (23-33) H Troponin I 4.662 ng/mL (0.000-0.056) 4.652 ng/mL (0.000-0.056) POC Whole Blood Glucose 124 MG/DL (74-106) H White Blood Count 13.0 K/UL (4.8-10.8) H Red Blood Count 4.00 M/UL (4.70-6.10) L Hemoglobin 12.6 G/DL (14.2-18.0) L Hematocrit 35.6 % (42.0-52.0) L Mean Corpuscular Volume 89 FL (80-99) Mean Corpuscular Hemoglobin 31.4 PG (27.0-31.0) H Mean Corpuscular Hemoglobin Concent 35.3 G/DL (32.0-36.0) Red Cell Distribution Width 16.0 % (11.6-14.8) H Platelet Count 152 K/UL (150-450) Mean Platelet Volume 6.7 FL (6.5-10.1) Neutrophils (%) (Auto) 69.7 % (45.0-75.0) Lymphocytes (%) (Auto) 23.2 % (20.0-45.0) Monocytes (%) (Auto) 4.3 % (1.0-10.0) Eosinophils (%) (Auto) 2.0 % (0.0-3.0) Basophils (%) (Auto) 0.6 % (0.0-2.0) Sodium Level 160 MMOL/L (136-145) H Potassium Level 3.9 MMOL/L (3.5-5.1) Chloride Level 129 MMOL/L (98-107) H Carbon Dioxide Level 17 MMOL/L (21-32) L Anion Gap 15 mmol/L (5-15) Blood Urea Nitrogen 58 mg/dL (7-18) H Creatinine 2.0 MG/DL (0.55-1.30) H Estimat Glomerular Filtration Rate 32.0 mL/min (>60) Glucose Level 173 MG/DL (74-106) #H Lactic Acid Level 2.00 mmol/L (0.4-2.0) Uric Acid 6.3 MG/DL (2.6-7.2) Calcium Level 7.8 MG/DL (8.5-10.1) L Phosphorus Level 3.9 MG/DL (2.5-4.9) Magnesium Level 2.2 MG/DL (1.8-2.4) Iron Level 80 ug/dL (50-175) Total Iron Binding Capacity 126 ug/dL (250-450) L Percent Iron Saturation 63 % (15-50) H Unsaturated Iron Binding 46 ug/dL (112-346) L Ferritin 791 NG/ML (8-388) H Total Bilirubin 0.7 MG/DL (0.2-1.0) Gamma Glutamyl Transpeptidase 30 U/L (5-85) Aspartate Amino Transf (AST/SGOT) 44 U/L (15-37) H Alanine Aminotransferase (ALT/SGPT) 17 U/L (12-78) Alkaline Phosphatase 84 U/L (46-116) Total Creatine Kinase 1069 U/L (26-308) H C-Reactive Protein, Quantitative 10.1 mg/dL (0.00-0.90) H Pro-B-Type Natriuretic Peptide 3350 pg/mL (0-125) H Total Protein 7.0 G/DL (6.4-8.2) Albumin 3.0 G/DL (3.4-5.0) L Globulin 4.0 g/dL Albumin/Globulin Ratio 0.8 (1.0-2.7) L Triglycerides Level 218 MG/DL (30-150) H Cholesterol Level 149 MG/DL (< 200) LDL Cholesterol 80 mg/dL (<100) HDL Cholesterol 32 MG/DL (40-60) L Cholesterol/HDL Ratio 4.7 (3.3-4.4) H Vitamin B12 Level 655 PG/ML (193-986) Folate 5.2 NG/ML (8.6-58.9) L Current Medications Medications (Trade) Dose Ordered Sig/Mily Route PRN Reason Start Time Stop Time Status Last Admin Dose Admin Acetaminophen (Tylenol) 325 mg Q4H PRN ORAL Mild Pain (Pain Scale 1-3) 01/14/20 20:30 02/13/20 20:29 Acetaminophen (Tylenol) 650 mg Q4H PRN ORAL Moderate Pain (Pain Scale 4-6) 01/14/20 20:30 02/13/20 20:29 Aspirin (Ecotrin) 81 mg DAILY ORAL 01/16/20 09:00 03/01/20 08:59 01/16/20 09:33 Barium Sulfate (Varibar Honey) 250 ml NOW PRN MC RAD 01/14/20 22:15 01/17/20 22:06 Barium Sulfate (Varibar [place]) 240 ml NOW PRN MC RAD 01/14/20 22:15 01/17/20 22:06 Barium Sulfate (Varibar Pudding) 230 ml NOW PRN MC RAD 01/14/20 22:15 01/17/20 22:06 Barium Sulfate (Varibar Thin Liquid powder) 148 gm NOW PRN MC RAD 01/14/20 22:15 01/17/20 22:06 Dextrose (Dextrose 50%) 25 ml Q30M PRN IV Hypoglycemia 01/14/20 20:15 04/13/20 20:14 Dextrose (Dextrose 50%) 50 ml Q30M PRN IV Hypoglycemia 01/14/20 20:15 04/13/20 20:14 Donepezil HCl (Aricept) 10 mg DAILY ORAL 01/15/20 09:00 02/14/20 08:59 01/16/20 09:32 Finasteride (Proscar) 5 mg QHS ORAL 01/14/20 21:00 04/13/20 20:59 01/15/20 21:33 Insulin Aspart (NovoLOG) BEFORE MEALS AND HS SUBQ 01/14/20 21:00 04/13/20 20:59 01/16/20 12:19 Medroxyprogesterone Acetate (Provera) 10 mg DAILY ORAL 01/15/20 09:00 04/14/20 08:59 01/16/20 09:33 Memantine (Namenda) 5 mg TWICE A DAY ORAL 01/15/20 09:00 02/14/20 08:59 01/16/20 09:33 Midodrine (Pro-Amatine) 10 mg Q8HR ORAL 01/15/20 14:45 04/14/20 14:44 12/6/20 05:37 Pantoprazole (Protonix) 40 mg BID ORAL 01/15/20 18:00 02/14/20 10:59 01/16/20 09:33 Piperacillin Sod/ Tazobactam Sod 3.375 gm/Sodium Chloride 110 ml @ 27.5 mls/hr Q8HR IVPB 01/14/20 22:00 01/21/20 21:59 01/16/20 05:34 Sodium Chloride 1,000 ml @ 75 mls/hr [id number] IV 01/14/20 20:15 02/13/20 20:14 01/16/20 13:03 Vancomycin HCl ([facility] pharmacy to dose) 1 ea DAILY PRN MISC rx protocol 01/15/20 09:00 02/14/20 08:59 Von Cunningham MD Jan 16, 2020 14:03
[2020-01-16 16:00] VITALS: BP 143/67
--- NOTE | 2020-01-16 19:16 | NUR ---
NURSE HAND-OFF REPORT: Important Events on Shift: Patient has poor appetite, albumin given, junctional rhythm, reported to Dr. Jose Womack, midodrine discontinued. Patient Status: Stable Diet: regular puree with nectar thick liquids, poor appetite. Pending Orders: am labs Pending Results/Labs:am labs. Pending MD notification:N/A Latest Vital Signs: Temperature 97.7 , Pulse 55 , B/P 143 /67 , Respiratory Rate 20 , O2 SAT 100 , Nasal Cannula, O2 Flow Rate 2.0 . Vital Sign Comment: Stable EKG Rhythm: Sinus Bradycardia Rhythm change?: Y MD Notified?: N -Dr. Vu KESSLER Response: Latest Eric Fall Score: 70 Fall Risk: High Risk Safety Measures: Call light Within Reach, Bed Alarm Zone 2, Side Rails Side Rails x3, Bed position Low and Locked. Fall Precautions: Yellow Socks Yellow Gown Patient Fall Education Report given to Alice Monique RN.
--- NOTE | 2020-01-16 19:20 | NUR ---
NURSE NOTES: RECEIVED PATIENT FROM [facility] D[facility]. A/OX0 IN BED. PATIENT IS SLEEPING AT THIS TIME IN . NO PAIN NOTED AT THIS TIME. NO DISCOMFORT NOTED.PATIENT IS BILATERAL WRIST RESTRAINTS D/T PULLING OUT MEDICAL DEVICES. NO SWELLING NOTED, SENSATION INTACT, PULES PALPATED. HYDRATION NEEDS OFFERED, ELIMINATION NEEDS OFFERED. IV LEFT FA 22g S/L; FLUSHED PATENT; NO ERYTHEMA OR BLEEDING NOTED. IV SITE RIGHT 22g HAND RUNNING 1/2 NS@100. FLUSHED PATENT; NO ERYTHEMA OR BLEEDING NOTED. BED IN THE LOWEST POSITION. SIDERAILS ARE UP X2, CALL LIGHT IS WITHIN REACH. WILL CONTINUE TO MONITOR.
[2020-01-16 20:00] VITALS: BP 137/60
--- NOTE | 2020-01-16 20:21 | Cardiac Electrophysiology PN ---
Assessment/Plan Assessment/Plan 1. Four elevated troponin, all more than 4. The EKG does not show any ST elevation; however, there is inferolateral T-wave inversion suggestive of ischemia. The elevated troponin may be partially due to the patient's renal failure and dehydration. Sodium is also 162 as well. The patient is nonverbal and is DNR. We will treat the patient medically. Cannot give the patient beta-kim in view of hypotension and bradycardia I will just keep the patient on aspirin and watch the patient clinically. 2. Hypotension, improved. DC midodrine as had junctional rhythm. Echocardiogram showed normal left ventricular systolic function. 3. Junctional rhythm at 40 while awake. DC Midodrine. 4. Uncontrolled diabetes. 5. Sepsis. White count of 23,000, on antibiotics. 6. End-stage renal disease. Further evaluation by Dr. Allen. 7. Severe hypernatremia, again on IV fluids, per Dr. Allen. 8. UTI. DW RN Subjective Subjective All 4 troponins are flat and around 4. DCed heparin drip Nonverbal, septic , renal failure and hypernatremic. 84 year or demented, DNR Medical therapy Not a cath candidate Had transient junctional rhythm down to 40s at 10.44 am today Objective Last 24 Hour Vital Signs Date Time Temp Pulse Resp B/P (MAP) Pulse Ox O2 Delivery O2 Flow Rate FiO2 01/16/20 16:00 55 01/16/20 16:00 97.7 73 20 143/67 (92) 100 01/16/20 12:00 63 01/16/20 12:00 97.8 58 20 111/51 (71) 100 01/16/20 09:00 Nasal Cannula 2.0 01/16/20 08:00 97.6 57 20 122/69 (86) 100 01/16/20 08:00 43 01/16/20 04:00 56 01/16/20 04:00 97.8 82 18 91/45 (60) 99 01/16/20 00:00 96.0 87 20 96/51 (66) 100 01/16/20 00:00 75 01/15/20 21:00 Nasal Cannula 2.0 Intake and Output 01/15/20 01/16/20 19:00 07:00 Intake Total 220 ml 1250.5 ml Output Total 400 ml 500 ml Balance -180 ml 750.5 ml Intake Oral 120 ml IV Total 100 ml 1250.5 ml Output Urine Total 400 ml 500 ml # Voids 1 Laboratory Tests Test 01/15/20 20:40 01/16/20 05:52 01/16/20 16:21 POC Whole Blood Glucose 124 MG/DL (74-106) H 179 MG/DL (74-106) H White Blood Count 13.0 K/UL (4.8-10.8) H Red Blood Count 4.00 M/UL (4.70-6.10) L Hemoglobin 12.6 G/DL (14.2-18.0) L Hematocrit 35.6 % (42.0-52.0) L Mean Corpuscular Volume 89 FL (80-99) Mean Corpuscular Hemoglobin 31.4 PG (27.0-31.0) H Mean Corpuscular Hemoglobin Concent 35.3 G/DL (32.0-36.0) Red Cell Distribution Width 16.0 % (11.6-14.8) H Platelet Count 152 K/UL (150-450) Mean Platelet Volume 6.7 FL (6.5-10.1) Neutrophils (%) (Auto) 69.7 % (45.0-75.0) Lymphocytes (%) (Auto) 23.2 % (20.0-45.0) Monocytes (%) (Auto) 4.3 % (1.0-10.0) Eosinophils (%) (Auto) 2.0 % (0.0-3.0) Basophils (%) (Auto) 0.6 % (0.0-2.0) Sodium Level 160 MMOL/L (136-145) H Potassium Level 3.9 MMOL/L (3.5-5.1) Chloride Level 129 MMOL/L (98-107) H Carbon Dioxide Level 17 MMOL/L (21-32) L Anion Gap 15 mmol/L (5-15) Blood Urea Nitrogen 58 mg/dL (7-18) H Creatinine 2.0 MG/DL (0.55-1.30) H Estimat Glomerular Filtration Rate 32.0 mL/min (>60) Glucose Level 173 MG/DL (74-106) #H Lactic Acid Level 2.00 mmol/L (0.4-2.0) Uric Acid 6.3 MG/DL (2.6-7.2) Calcium Level 7.8 MG/DL (8.5-10.1) L Phosphorus Level 3.9 MG/DL (2.5-4.9) Magnesium Level 2.2 MG/DL (1.8-2.4) Iron Level 80 ug/dL (50-175) Total Iron Binding Capacity 126 ug/dL (250-450) L Percent Iron Saturation 63 % (15-50) H Unsaturated Iron Binding 46 ug/dL (112-346) L Ferritin 791 NG/ML (8-388) H Total Bilirubin 0.7 MG/DL (0.2-1.0) Gamma Glutamyl Transpeptidase 30 U/L (5-85) Aspartate Amino Transf (AST/SGOT) 44 U/L (15-37) H Alanine Aminotransferase (ALT/SGPT) 17 U/L (12-78) Alkaline Phosphatase 84 U/L (46-116) Total Creatine Kinase 1069 U/L (26-308) H Troponin I 4.652 ng/mL (0.000-0.056) C-Reactive Protein, Quantitative 10.1 mg/dL (0.00-0.90) H Pro-B-Type Natriuretic Peptide 3350 pg/mL (0-125) H Total Protein 7.0 G/DL (6.4-8.2) Albumin 3.0 G/DL (3.4-5.0) L Globulin 4.0 g/dL Albumin/Globulin Ratio 0.8 (1.0-2.7) L Triglycerides Level 218 MG/DL (30-150) H Cholesterol Level 149 MG/DL (< 200) LDL Cholesterol 80 mg/dL (<100) HDL Cholesterol 32 MG/DL (40-60) L Cholesterol/HDL Ratio 4.7 (3.3-4.4) H Vitamin B12 Level 655 PG/ML (193-986) Folate 5.2 NG/ML (8.6-58.9) L Microbiology Date/Time Source Procedure Growth Status 01/15/20 12:15 Nasopharynx SARS-CoV-2 RdRp Gene Assay - Final Complete 01/14/20 17:52 Rectum VRE Culture - Final NO VANCOMYCIN RESISTANT ENTEROCOCCUS ... Complete 01/14/20 17:52 Nasal Nares MRSA Culture - Final Staphylococcus Aureus - Mrsa Complete 12/4/20 17:16 Nasopharynx Coronavirus COVID-19 PCR ([facility]) - Final Complete 01/14/20 14:50 Blood Blood Culture - Preliminary NO GROWTH AFTER 24 HOURS Resulted 01/14/20 14:40 Blood Blood Culture - Preliminary NO GROWTH AFTER 24 HOURS Resulted 01/14/20 14:30 Urine,Clean Catch Urine Culture - Preliminary Gram Negative Oz Resulted Objective HEAD AND NECK: Showed no JVD. LUNGS: Coarse rhonchi. CARDIOVASCULAR: Shows regular S1 and S2 with no gallop or murmur. ABDOMEN: Soft. EXTREMITIES: No pitting edema. Jose Womack MD Jan 16, 2020 20:21
[2020-01-17] VITALS: BP 141/80
[2020-01-17 04:00] VITALS: BP 134/70
[2020-01-17] MEDS: Piperacillin/Tazobactam 3.375 GM in NS 110 ML IVPB SCH ×3 (06:22→21:03)
[2020-01-17] MEDS: NovoLOG Insulin Flexpen SUBQ SCH ×4 (06:23→20:25)
--- NOTE | 2020-01-17 07:30 | NUR ---
NURSE NOTES: Received pt from TIM Jenkins, pt is awake and confused, Pt has NC 2Lit, pt is on continues heart monitoring, pt has intact iv access LH 22G is running well and RH 22G SL. Pt has condom cath in place is working well. no complain of pain at this moment. Dr Womack visited pt and is aware about feet edema, no new order received, MD will F/U. all needs attended, bed is locked and is in the lowest position, call light within easy reach. will continue to monitor.
--- NOTE | 2020-01-17 07:32 | NUR ---
NURSE HAND-OFF REPORT: Important Events on Shift: Patient Status: No acute distress Diet: Regular diet puree moist NTL Cherished meds Pending Orders: Pending Results/Labs: Pending MD notification: Latest Vital Signs: Temperature 98.1 , Pulse 61 , B/P 134 /70 , Respiratory Rate 16 , O2 SAT 100 , Nasal Cannula, O2 Flow Rate 2.0 . Vital Sign Comment: EKG Rhythm: Sinus Rhythm Rhythm change?: N MD Notified?: N -Dr. Vu KESSLER Response: Latest Eric Fall Score: 70 Fall Risk: High Risk Safety Measures: Call light Within Reach, Bed Alarm Zone 2, Side Rails Side Rails x3, Bed position Low and Locked. Fall Precautions: Yellow Socks Yellow Gown Patient Fall Education Report given to Geoffrey DUMONT .
--- NOTE | 2020-01-17 07:46 | General Progress Note ---
Subjective ROS Limited/Unobtainable: Yes Allergies: Coded Allergies: No Known Allergies (Verified , 08/20/09) Subjective all consultants appreciated no distress still with elevated sodium repeat labs pending Objective Last 24 Hour Vital Signs Date Time Temp Pulse Resp B/P (MAP) Pulse Ox O2 Delivery O2 Flow Rate FiO2 01/17/20 04:00 98.1 60 16 134/70 (91) 100 01/17/20 04:00 61 01/17/20 00:00 70 01/17/20 00:00 98.4 70 16 141/80 (100) 100 01/16/20 21:00 Nasal Cannula 2.0 01/16/20 21:00 61 01/16/20 20:00 97.5 55 16 137/60 (85) 100 01/16/20 16:00 55 01/16/20 16:00 97.7 73 20 143/67 (92) 100 01/16/20 12:00 63 01/16/20 12:00 97.8 58 20 111/51 (71) 100 01/16/20 09:00 Nasal Cannula 2.0 01/16/20 08:00 97.6 57 20 122/69 (86) 100 01/16/20 08:00 43 Intake and Output 01/16/20 01/17/20 19:00 07:00 Intake Total 1235.5 ml 757.5 ml Output Total 400 ml 300 ml Balance 835.5 ml 457.5 ml IV Total 1235.5 ml 757.5 ml Output Urine Total 400 ml 300 ml # Voids 2 2 Laboratory Tests 01/16/20 12:16: POC Whole Blood Glucose 169H 01/16/20 16:21: POC Whole Blood Glucose 179H 01/16/20 22:02: POC Whole Blood Glucose [Pending] 01/17/20 06:20: POC Whole Blood Glucose 139H Height (Feet): 5 Height (Inches): 7.00 Weight (Pounds): 161 Objective WDWN NAD clear breath sounds bilaterally without rhonchi or wheeze [id number] without MRG NABS nontender no HSM no CCE nonfocal altered Assessment/Plan Assessment/Plan: IMPRESSION: 1. Leukocytosis, likely sepsis. 2. Hypernatremia, likely prerenal. 3. End-stage renal disease. 4. Diabetes, out of control. 5. Evidence of coronary artery disease and non-STEMI. 6. Lactic acidemia. RECOMMENDATIONS: Do Not Resuscitate. appreciate Renal, noted Cardiology and ID. IV hydration for now and boluses as needed. Empiric antibiotics and await cultures. Heparin drip off. custodial medicine, vancomycin and Zosyn. Follow up laboratories data. dc planning impression, plan, and exam edited and reviewed in detail care discussed with Sebastian Khalil MD Jan 17, 2020 07:46
[2020-01-17 08:00] VITALS: BP_SYST 153; BP_SYST 178; BP_DIAS 113; BP_DIAS 74
[2020-01-17] MEDS ORDERED: 1/2 NS 1000ml IV ONE (08:36)
[2020-01-17] MEDS: Donepezil 10mg tab ORAL SCH (08:55)
[2020-01-17] MEDS: Memantine 5 MG TAB ORAL SCH ×2 (08:55→17:00)
[2020-01-17] MEDS: Aspirin EC 81mg tab ORAL SCH (08:55)
[2020-01-17] MEDS: medroxyPROGESTERone 10mg tab ORAL SCH (08:55)
--- NOTE | 2020-01-17 09:10 | Cardiac Electrophysiology PN ---
Assessment/Plan Assessment/Plan 1. Four elevated troponin, all more than 4. The EKG does not show any ST elevation; however, there is inferolateral T-wave inversion suggestive of ischemia. The elevated troponin may be partially due to the patient's renal failure and dehydration. Sodium is also 162 as well. The patient is nonverbal and is DNR. We will treat the patient medically. Cannot give the patient beta-kim in view of hypotension and bradycardia I will just keep the patient on aspirin . Off statin as CPK was more than 1000 2. Hypotension, improved. DCed midodrine as had junctional rhythm. Echocardiogram showed normal left ventricular systolic function. 3. Junctional rhythm at 40 while awake. DCed Midodrine. 4. Uncontrolled diabetes. 5. Sepsis. White count of 23,000, on antibiotics.Improved 6. End-stage renal disease. BUN/cr 85/2.7 improved to 58/2.[address] Allen. 7. Severe hypernatremia, again on IV fluids, per Dr. Allen. 8. UTI. ABDIAZIZ RN Subjective Subjective All 4 troponins are flat and around 4. Nonverbal, septic , renal failure and hypernatremic. 84 year or demented, DNR Medical therapy Not a cath candidate Had transient junctional rhythm down to 40s at 10.44 am on 01/16/20 On 2 liter nasal cannula. On 02/11 NS at 75 cc/hr Objective Last 24 Hour Vital Signs Date Time Temp Pulse Resp B/P (MAP) Pulse Ox O2 Delivery O2 Flow Rate FiO2 01/17/20 08:00 96.7 61 20 153/74 (100) 98 01/17/20 04:00 98.1 60 16 134/70 (91) 100 01/17/20 04:00 61 01/17/20 00:00 70 01/17/20 00:00 98.4 70 16 141/80 (100) 100 01/16/20 21:00 Nasal Cannula 2.0 01/16/20 21:00 61 01/16/20 20:00 97.5 55 16 137/60 (85) 100 01/16/20 16:00 55 01/16/20 16:00 97.7 73 20 143/67 (92) 100 01/16/20 12:00 63 01/16/20 12:00 97.8 58 20 111/51 (71) 100 Intake and Output 01/16/20 01/17/20 19:00 07:00 Intake Total 1235.5 ml 757.5 ml Output Total 400 ml 300 ml Balance 835.5 ml 457.5 ml IV Total 1235.5 ml 757.5 ml Output Urine Total 400 ml 300 ml # Voids 2 2 Laboratory Tests Test 01/16/20 12:16 01/16/20 16:21 01/16/20 22:02 01/17/20 06:20 POC Whole Blood Glucose 169 MG/DL (74-106) H 179 MG/DL (74-106) H Pending 139 MG/DL (74-106) H Microbiology Date/Time Source Procedure Growth Status 01/15/20 12:15 Nasopharynx SARS-CoV-2 RdRp Gene Assay - Final Complete 01/14/20 17:52 Rectum VRE Culture - Final NO VANCOMYCIN RESISTANT ENTEROCOCCUS ... Complete 01/14/20 17:52 Nasal Nares MRSA Culture - Final Staphylococcus Aureus - Mrsa Complete 01/14/20 17:16 Nasopharynx Coronavirus COVID-19 PCR (ADRIAN) - Final Complete 01/14/20 14:50 Blood Blood Culture - Preliminary NO GROWTH AFTER 48 HOURS Resulted 01/14/20 14:40 Blood Blood Culture - Preliminary NO GROWTH AFTER 48 HOURS Resulted 01/14/20 14:30 Urine,Clean Catch Urine Culture - Final Escherichia Coli - Esbl Complete Objective HEAD AND NECK: No JVD. LUNGS: Coarse rhonchi. CARDIOVASCULAR: Regular S1 and S2 with no gallop or murmur. ABDOMEN: Soft. EXTREMITIES: No pitting edema. Jose Womack MD Jan 17, 2020 09:10
[2020-01-17 10:44] LABS: BASOPHILS % (AUTO) 0.7 % (0.0-2.0); EOSINOPHILS % (AUTO) 2.1 % (0.0-3.0); HEMATOCRIT 34.2 % (42.0-52.0); HEMOGLOBIN 11.8 G/DL (14.2-18.0); LYMPHOCYTES % (AUTO) 22.5 % (20.0-45.0); MEAN CORPUSCULAR VOLUME 89 FL (80-99); MONOCYTES % (AUTO) 5.6 % (1.0-10.0); NEUTROPHILS % (AUTO) 69.2 % (45.0-75.0); PLATELET COUNT 135 K/UL (150-450); RED BLOOD COUNT 3.83 M/UL (4.70-6.10); RED CELL DISTRIBUTION WIDTH 14.5 % (11.6-14.8); WHITE BLOOD COUNT 9.2 K/UL (4.8-10.8)
--- NOTE | 2020-01-17 11:03 | NUR ---
NURSE NOTES: Urine sent to lab.
--- NOTE | 2020-01-17 11:07 | Infectious Diseases Prog Note ---
Assessment/Plan Assessment/Plan antibiotics : vancomycin iv, zosyn A 1. e.coli Urinary tract infection. 2. Leukocytosis resolved 3. Hyperglycemia. 4. Benign prostatic hypertrophy. 5. Renal failure, on dialysis. P 1. continue zosyn 3 more days 2. d/c iv vancomycin 3. will follow up cultures Subjective ROS Limited/Unobtainable: Yes Allergies: Coded Allergies: No Known Allergies (Verified , 08/20/09) Objective Last 24 Hour Vital Signs Date Time Temp Pulse Resp B/P (MAP) Pulse Ox O2 Delivery O2 Flow Rate FiO2 01/17/20 09:00 Nasal Cannula 2.0 01/17/20 08:00 96.7 61 20 153/74 (100) 98 01/17/20 07:44 61 01/17/20 04:00 98.1 60 16 134/70 (91) 100 01/17/20 04:00 61 01/17/20 00:00 70 01/17/20 00:00 98.4 70 16 141/80 (100) 100 01/16/20 21:00 Nasal Cannula 2.0 01/16/20 21:00 61 01/16/20 20:00 97.5 55 16 137/60 (85) 100 01/16/20 16:00 55 01/16/20 16:00 97.7 73 20 143/67 (92) 100 01/16/20 12:00 63 01/16/20 12:00 97.8 58 20 111/51 (71) 100 Height (Feet): 5 Height (Inches): 7.00 Weight (Pounds): 161 Respiratory/Chest: lungs clear Cardiovascular: normal rate, regular rhythm, no gallop/murmur Abdomen: soft, non tender Extremities: no edema Microbiology Date/Time Source Procedure Growth Status 01/15/20 12:15 Nasopharynx SARS-CoV-2 RdRp Gene Assay - Final Complete 01/14/20 17:52 Rectum VRE Culture - Final NO VANCOMYCIN RESISTANT ENTEROCOCCUS ... Complete 01/14/20 17:52 Nasal Nares MRSA Culture - Final Staphylococcus Aureus - Mrsa Complete 01/14/20 17:16 Nasopharynx Coronavirus COVID-19 PCR (ADRIAN) - Final Complete 01/14/20 14:50 Blood Blood Culture - Preliminary NO GROWTH AFTER 48 HOURS Resulted 01/14/20 14:40 Blood Blood Culture - Preliminary NO GROWTH AFTER 48 HOURS Resulted 01/14/20 14:30 Urine,Clean Catch Urine Culture - Final Escherichia Coli - Esbl Complete Laboratory Tests Test 01/16/20 12:16 01/16/20 16:21 01/16/20 22:02 01/17/20 06:20 POC Whole Blood Glucose 169 MG/DL (74-106) H 179 MG/DL (74-106) H Pending 139 MG/DL (74-106) H Test 01/17/20 08:50 White Blood Count 9.2 K/UL (4.8-10.8) Red Blood Count 3.83 M/UL (4.70-6.10) L Hemoglobin 11.8 G/DL (14.2-18.0) L Hematocrit 34.2 % (42.0-52.0) L Mean Corpuscular Volume 89 FL (80-99) Mean Corpuscular Hemoglobin 30.7 PG (27.0-31.0) Mean Corpuscular Hemoglobin Concent 34.4 G/DL (32.0-36.0) Red Cell Distribution Width 14.5 % (11.6-14.8) Platelet Count 135 K/UL (150-450) L Mean Platelet Volume 7.6 FL (6.5-10.1) Neutrophils (%) (Auto) 69.2 % (45.0-75.0) Lymphocytes (%) (Auto) 22.5 % (20.0-45.0) Monocytes (%) (Auto) 5.6 % (1.0-10.0) Eosinophils (%) (Auto) 2.1 % (0.0-3.0) Basophils (%) (Auto) 0.7 % (0.0-2.0) Sodium Level Pending Potassium Level Pending Chloride Level Pending Carbon Dioxide Level Pending Blood Urea Nitrogen Pending Creatinine Pending Estimat Glomerular Filtration Rate Pending Glucose Level Pending Uric Acid Pending Calcium Level Pending Phosphorus Level Pending Magnesium Level Pending Total Bilirubin Pending Aspartate Amino Transf (AST/SGOT) Pending Alanine Aminotransferase (ALT/SGPT) Pending Alkaline Phosphatase Pending Total Creatine Kinase Pending C-Reactive Protein, Quantitative Pending Pro-B-Type Natriuretic Peptide Pending Total Protein Pending Albumin Pending Globulin Pending Random Vancomycin Level Pending Current Medications Medications (Trade) Dose Ordered Sig/Mily Route PRN Reason Start Time Stop Time Status Last Admin Dose Admin Acetaminophen (Tylenol) 325 mg Q4H PRN ORAL Mild Pain (Pain Scale 1-3) 01/14/20 20:30 02/13/20 20:29 Acetaminophen (Tylenol) 650 mg Q4H PRN ORAL Moderate Pain (Pain Scale 4-6) 01/14/20 20:30 02/13/20 20:29 Aspirin (Ecotrin) 81 mg DAILY ORAL 01/16/20 09:00 03/01/20 08:59 01/17/20 08:55 Barium Sulfate (Varibar Honey) 250 ml NOW PRN RAD 01/14/20 22:15 01/17/20 22:06 Barium Sulfate (Varibar [place]) 240 ml NOW PRN MC RAD 01/14/20 22:15 01/17/20 22:06 Barium Sulfate (Varibar Pudding) 230 ml NOW PRN RAD 01/14/20 22:15 01/17/20 22:06 Barium Sulfate (Varibar Thin Liquid powder) 148 gm NOW PRN RAD 01/14/20 22:15 01/17/20 22:06 Dextrose (Dextrose 50%) 25 ml Q30M PRN IV Hypoglycemia 01/14/20 20:15 04/13/20 20:14 Dextrose (Dextrose 50%) 50 ml Q30M PRN IV Hypoglycemia 01/14/20 20:15 04/13/20 20:14 Donepezil HCl (Aricept) 10 mg DAILY ORAL 01/15/20 09:00 02/14/20 08:59 01/17/20 08:55 Finasteride (Proscar) 5 mg QHS ORAL 01/14/20 21:00 04/13/20 20:59 01/16/20 22:06 Insulin Aspart (NovoLOG) BEFORE MEALS AND HS SUBQ 01/14/20 21:00 04/13/20 20:59 01/16/20 22:08 Medroxyprogesterone Acetate (Provera) 10 mg DAILY ORAL 01/15/20 09:00 04/14/20 08:59 01/17/20 08:55 Memantine (Namenda) 5 mg TWICE A DAY ORAL 01/15/20 09:00 02/14/20 08:59 01/17/20 08:55 Pantoprazole (Protonix) 40 mg BID ORAL 01/15/20 18:00 02/14/20 10:59 01/17/20 08:55 Piperacillin Sod/ Tazobactam Sod 3.375 gm/Sodium Chloride 110 ml @ 27.5 mls/hr Q8HR IVPB 01/14/20 22:00 01/21/20 21:59 01/17/20 06:22 Sodium Chloride 500 ml @ 999 mls/hr Q31M PRN IV For hypotension 01/17/20 00:00 02/16/20 00:00 Sodium Chloride 1,000 ml @ 75 mls/hr [id number] IV 01/14/20 20:15 02/13/20 20:14 01/17/20 02:40 Vancomycin HCl ([facility] pharmacy to dose) 1 ea DAILY PRN MISC rx protocol 01/15/20 09:00 02/14/20 08:59 Wendie Frias MD Jan 17, 2020 11:07
[2020-01-17 11:20] LABS: ALANINE AMINOTRANSFERASE 19 U/L (12-78); ALBUMIN/GLOBULIN RATIO 0.8 (1.0-2.7); ALKALINE PHOSPHATASE 83 U/L (46-116); ASPARTATE AMINO TRANSFERASE 29 U/L (15-37); BILIRUBIN,TOTAL 0.8 MG/DL (0.2-1.0); BLOOD UREA NITROGEN 43 mg/dL (7-18); CALCIUM 7.9 MG/DL (8.5-10.1); CARBON DIOXIDE 21 MMOL/L (21-32); CREATININE 1.4 MG/DL (0.55-1.30)
[2020-01-17 11:22] LABS: CREATINE KINASE 353 U/L (26-308); PHOSPHORUS 2.8 MG/DL (2.5-4.9)
[2020-01-17 11:51] LABS: CHLORIDE 127 MMOL/L (98-107); POTASSIUM 3.9 MMOL/L (3.5-5.1); SODIUM 158 MMOL/L (136-145)
[2020-01-17 12:00] VITALS: BP 137/78
[2020-01-17] MEDS ORDERED: VITAMIN A & D113 GM TP (12:38)
--- NOTE | 2020-01-17 12:46 | NUR ---
CASE MANAGEMENT:REVIEW BIBA FROM [facility] SI: SEPSIS. UTI. NSTEMI DIABETES OUT OF CONTROL 97.7 121 28 97/71 94% ON RA WBC+23.2 GLUCOSE+924 IS: 1L NS BOLUS iv rocephin iv levaquin iv vaqncomycin asa pr iv insulin URINE CX BLOOD CX CXR : TO TELEMETRY
--- NOTE | 2020-01-17 14:01 | Nephrology Progress Note ---
Assessment/Plan Problem List: (1) Renal failure (ARF), acute on chronic (2) BPH (benign prostatic hyperplasia) (3) AMS (altered mental status) (4) Sepsis (5) Hyperglycemia (6) Elevated troponin (7) UTI (urinary tract infection) (8) Hypernatremia Assessment Patient admitted with altered mental status and sepsis. From renal standpoint to view the chemistry panel suggestive of dehydration and mainly prerenal acidemia. The ER doctor states that the patient has end-stage renal disease on hemodialysis however no fistula and no permacath was detected upon examination of the patient Hyperglycemia Evidence of UTI Hypernatremia Elevated troponin Plan January 16: Lab reviewed. Serum creatinine lower. Serum sodium lowering. CPK lowering. Continue slow hydration. Continue per consultants. January 15: Labs reviewed. Electrolyte within normal range. Serum sodium lowering. Serum creatinine lowering. CPK remains elevated. Cholesterol- lowering agent discontinued. Continue to monitor renal parameters and electrolytes. Serum troponin up over 4. Per orders. Will check lipid panel. Continue per consultants. January 14: Half-normal saline 100 cc an hour Urine for spot sodium, urine for eosinophils Monitor renal parameters Keep the blood sugar in check Fluid challenge, hemodynamic support Avoid nephrotoxic's Per orders Subjective ROS Limited/Unobtainable: Yes Objective Objective Last 24 Hour Vital Signs Date Time Temp Pulse Resp B/P (MAP) Pulse Ox O2 Delivery O2 Flow Rate FiO2 01/17/20 12:00 97.4 66 20 137/78 (97) 97 01/17/20 11:46 85 01/17/20 09:00 Nasal Cannula 2.0 01/17/20 08:00 96.7 61 20 153/74 (100) 98 01/17/20 07:44 61 01/17/20 04:00 98.1 60 16 134/70 (91) 100 01/17/20 04:00 61 01/17/20 00:00 70 01/17/20 00:00 98.4 70 16 141/80 (100) 100 01/16/20 21:00 Nasal Cannula 2.0 01/16/20 21:00 61 01/16/20 20:00 97.5 55 16 137/60 (85) 100 01/16/20 16:00 55 01/16/20 16:00 97.7 73 20 143/67 (92) 100 Intake and Output 01/16/20 01/17/20 19:00 07:00 Intake Total 1235.5 ml 832.5 ml Output Total 400 ml 300 ml Balance 835.5 ml 532.5 ml IV Total 1235.5 ml 832.5 ml Output Urine Total 400 ml 300 ml # Voids 2 2 Current Medications Medications (Trade) Dose Ordered Sig/Mily Route PRN Reason Start Time Stop Time Status Last Admin Dose Admin Acetaminophen (Tylenol) 325 mg Q4H PRN ORAL Mild Pain (Pain Scale 1-3) 01/14/20 20:30 02/13/20 20:29 Acetaminophen (Tylenol) 650 mg Q4H PRN ORAL Moderate Pain (Pain Scale 4-6) 01/14/20 20:30 02/13/20 20:29 Aspirin (Ecotrin) 81 mg DAILY ORAL 01/16/20 09:00 03/01/20 08:59 01/17/20 08:55 Barium Sulfate (Varibar Honey) 250 ml NOW PRN MC RAD 01/14/20 22:15 01/17/20 22:06 Barium Sulfate (Varibar [place]) 240 ml NOW PRN MC RAD 01/14/20 22:15 01/17/20 22:06 Barium Sulfate (Varibar Pudding) 230 ml NOW PRN MC RAD 01/14/20 22:15 01/17/20 22:06 Barium Sulfate (Varibar Thin Liquid powder) 148 gm NOW PRN MC RAD 01/14/20 22:15 01/17/20 22:06 Dextrose (Dextrose 50%) 25 ml Q30M PRN IV Hypoglycemia 01/14/20 20:15 04/13/20 20:14 Dextrose (Dextrose 50%) 50 ml Q30M PRN IV Hypoglycemia 01/14/20 20:15 04/13/20 20:14 Donepezil HCl (Aricept) 10 mg DAILY ORAL 01/15/20 09:00 02/14/20 08:59 01/17/20 08:55 Finasteride (Proscar) 5 mg QHS ORAL 01/14/20 21:00 04/13/20 20:59 01/16/20 22:06 Insulin Aspart (NovoLOG) BEFORE MEALS AND HS SUBQ 01/14/20 21:00 04/13/20 20:59 01/17/20 12:27 Medroxyprogesterone Acetate (Provera) 10 mg DAILY ORAL 01/15/20 09:00 04/14/20 08:59 01/17/20 08:55 Memantine (Namenda) 5 mg TWICE A DAY ORAL 01/15/20 09:00 02/14/20 08:59 01/17/20 08:55 Pantoprazole (Protonix) 40 mg BID ORAL 01/15/20 18:00 02/14/20 10:59 01/17/20 08:55 Piperacillin Sod/ Tazobactam Sod 3.375 gm/Sodium Chloride 110 ml @ 27.5 mls/hr Q8HR IVPB 01/14/20 22:00 01/21/20 21:59 01/17/20 06:22 Sodium Chloride 500 ml @ 999 mls/hr Q31M PRN IV For hypotension 01/17/20 00:00 02/16/20 00:00 Sodium Chloride 1,000 ml @ 75 mls/hr [id number] IV 01/14/20 20:15 02/13/20 20:14 01/17/20 02:40 Laboratory Tests 01/16/20 16:21: POC Whole Blood Glucose 179H 01/16/20 22:02: POC Whole Blood Glucose [Pending] 01/17/20 06:20: POC Whole Blood Glucose 139H 01/17/20 08:50: White Blood Count 9.2, Red Blood Count 3.83L, Hemoglobin 11.8L, Hematocrit 34.2L , Mean Corpuscular Volume 89, Mean Corpuscular Hemoglobin 30.7, Mean Corpuscular Hemoglobin Concent 34.4, Red Cell Distribution Width 14.5, Platelet Count 135L, Mean Platelet Volume 7.6, Neutrophils (%) (Auto) 69.2, Lymphocytes (%) (Auto) 22.5, Monocytes (%) (Auto) 5.6, Eosinophils (%) (Auto) 2.1, Basophils (%) (Auto) 0.7, Sodium Level 158H, Potassium Level 3.9, Chloride Level 127H, Carbon Dioxide Level 21, Blood Urea Nitrogen 43H, Creatinine 1.4H, Estimat Glomerular Filtration Rate 48.3, Glucose Level 164H, Uric Acid 4.8, Calcium Level 7.9L, Phosphorus Level 2.8, Magnesium Level 2.3, Total Bilirubin 0.8, Aspartate Amino Transf (AST/SGOT) 29, Alanine Aminotransferase (ALT/SGPT) 19, Alkaline Phosphatase 83, Total Creatine Kinase 353H, C-Reactive Protein, Quantitative 4.5H, Pro-B-Type Natriuretic Peptide 3123H, Total Protein 6.6, Albumin 3.0L, Globulin 3.6, Albumin/Globulin Ratio 0.8L, Random Vancomycin Level 10.1 01/17/20 10:55: Urine Random Sodium 120H 01/17/20 11:17: POC Whole Blood Glucose 189H Height (Feet): 5 Height (Inches): 7.00 Weight (Pounds): 161 General Appearance: no apparent distress, lethargic EENT: other Cardiovascular: normal rate, other - Variable rate Respiratory/Chest: decreased breath sounds Abdomen: distended Phuc Allen MD Jan 17, 2020 14:01
[2020-01-17 16:00] VITALS: BP 150/77
--- NOTE | 2020-01-17 19:16 | NUR ---
NURSE HAND-OFF REPORT: Important Events on Shift: Patient Status: Diet: Pending Orders: Pending Results/Labs: Pending MD notification: Latest Vital Signs: Temperature 97.8 , Pulse 68 , B/P 150 /77 , Respiratory Rate 20 , O2 SAT 100 , Nasal Cannula, O2 Flow Rate 2.0 . Vital Sign Comment: EKG Rhythm: Sinus Rhythm Rhythm change?: N MD Notified?: N -Dr. Vu KESSLER Response: Latest Eric Fall Score: 70 Fall Risk: High Risk Safety Measures: Call light Within Reach, Bed Alarm Zone 2, Side Rails Side Rails x3, Bed position Low and Locked. Fall Precautions: Yellow Socks Yellow Gown Patient Fall Education Report given to . Pt is awake and stable, no stress noted, endorsed plan of care, endorsed to monitor HR and BS.
--- NOTE | 2020-01-17 19:26 | NUR ---
NURSE NOTES: Received report from TIM Hale, pt. in bed awake with eyes open, non-verbal, no signs or symptoms of acute cardiac or respiratory distress noted, bed in lowest position and call light within easy reach, bed alarm on, side rails up x's3, pt. appears to be sating well on 2L NC- no distress noted- breathing unlabored and even, pt. has condom cath intact and draining to gravity, pt. appears clean and dry, Lt. hand 20G SL- IV intact and patent, rt. hand 20G IV intact and patent running 1/2 NS at 75cc/hr-, aspiration and skin precautions observed, bilateral wrist restraints removed, bilateral pulses palpable and skin intact- restraints reapplied, safety measures continued, will continue with plan of care.
[2020-01-17 20:00] VITALS: BP 148/69
--- NOTE | 2020-01-17 21:48 | NUR ---
NURSE NOTES: pt. soiled- complete bed bath given- linens changed- oral care provided- repositioned and turned pt.- pt. continues to sat well on 2L NC- will continue to monitor pt. and with plan of care.
--- NOTE | 2020-01-17 23:13 | Psychiatry Consultation ---
Psychiatry Consultation Psychiatry Consultation Chief Complaint: Abnormal Labs History of Present Illness: The patient has a history of dementia, He has been admitted to the hospital for medical stabilization. The patient is presenting with agitation, confusion, inability to answer any questions. PAST PSYCHIATRIC HISTORY: Dementia. PAST MEDICAL HISTORY: As above. ALLERGIES: No known drug allergies. SUBSTANCE ABUSE HISTORY: No known drug history noted. Toxicology is negative for all drugs. MENTAL STATUS EXAMINATION: The patient is alert, confused, disoriented. Mood is agitated. Affect is flat. Thought process, there is a paucity of thought content. Thought content, no suicidal or homicidal ideation. Cognition is impaired. Insight and judgment is impaired. ASSESSMENT: 1. Dementia with behavior disturbance. 2. Acute encephalopathy. PLAN: 1. We will continue current medication. 2. Provide the patient with reality orientation and supportive therapy. Allergies: Coded Allergies: No Known Allergies (Verified , 08/20/09) Medication History Scheduled Donepezil Hcl* (Aricept*), 10 MG ORAL DAILY, (Reported) Finasteride (Finasteride), 5 MG ORAL QHS, (Reported) Losartan Potassium (Losartan Potassium), 25 MG PO DAILY, (Reported) Medroxyprogesterone Acet* (Provera*), 10 MG ORAL DAILY, (Reported) Memantine Hcl* (Namenda*), 5 MG ORAL TWICE A DAY, (Reported) Petrolatum,White/Lanolin (Vitamin A & D Ointment), 113 GM TP BID, (Reported) Scheduled PRN Acetaminophen* (Acetaminophen 325MG Tablet*), 650 MG ORAL Q4H PRN for Moderate Pain (Pain Scale 4-6), (Reported) Acetaminophen* (Acetaminophen 325MG Tablet*), 325 MG ORAL Q4H PRN for Mild Pain (Pain Scale 1-3), (Reported) Magnesium Hydroxide (Milk of Magnesia), 30 ML ORAL DAILY PRN for bowel norah gement, (Reported) [Mylanta 200-200-20], 15 ML PO FOUR TIMES A DAY PRN for DYSPESIA, (Reported) [Robitussin Dm], 5 ML PO Q6HR PRN for For Cough, (Reported) Discontinued Medications Cefepime Hcl/D5w (Cefepime-Dextrose 2 Gm/50 Ml), 2 GM IVPB Q24H Discontinued Reason: Therapy completed Objective Data Height (Feet): 5 Height (Inches): 7.00 Weight (Pounds): 161 Kaya Lagos MD Jan 17, 2020 23:13
[2020-01-18] VITALS: BP 141/78
[2020-01-18 04:00] VITALS: BP 148/83
[2020-01-18] MEDS: Piperacillin/Tazobactam 3.375 GM in NS 110 ML IVPB SCH ×3 (05:30→21:42)
[2020-01-18] MEDS: NovoLOG Insulin Flexpen SUBQ SCH ×4 (05:32→21:12)
--- NOTE | 2020-01-18 07:13 | NUR ---
NURSE HAND-OFF REPORT: Important Events on Shift:none Patient Status: fair Diet: regular pureed diet Pending Orders: Pending Results/Labs: Pending MD notification: Latest Vital Signs: Temperature 97.8 , Pulse 75 , B/P 148 /83 , Respiratory Rate 22 , O2 SAT 98 , Nasal Cannula, O2 Flow Rate 2.0 . Vital Sign Comment: EKG Rhythm: Sinus Rhythm Rhythm change?: N MD Notified?: MD Response: Latest Eric Fall Score: 70 Fall Risk: High Risk Safety Measures: Call light Within Reach, Bed Alarm Zone 2, Side Rails Side Rails x3, Bed position Low and Locked. Fall Precautions: Yellow Socks Yellow Gown Patient Fall Education Report given to Lien nugent - aware to f/u on any abnormal am labs.
--- NOTE | 2020-01-18 07:37 | NUR ---
NURSE NOTES: Patient was seen in bed asleep in low fowlers position with no acute signs of distress. Patient is on 2L nasal cannula. the bed was placed in lowest position, locked, side rails in place x3, bed alarm set to zone 1 and call light within reach.
--- NOTE | 2020-01-18 07:57 | General Progress Note ---
Subjective ROS Limited/Unobtainable: Yes Allergies: Coded Allergies: No Known Allergies (Verified , 08/20/09) Subjective all consultants appreciated no distress still with elevated sodium but better repeat labs pending Objective Last 24 Hour Vital Signs Date Time Temp Pulse Resp B/P (MAP) Pulse Ox O2 Delivery O2 Flow Rate FiO2 01/18/20 04:00 97.8 75 22 148/83 (104) 98 01/18/20 03:32 75 01/18/20 00:00 98.7 71 22 141/78 (99) 99 01/17/20 23:31 75 01/17/20 21:00 Nasal Cannula 2.0 01/17/20 20:00 98.9 89 22 148/69 (95) 100 01/17/20 19:06 96 01/17/20 16:00 97.8 68 20 150/77 (101) 100 01/17/20 15:11 81 01/17/20 12:00 97.4 66 20 137/78 (97) 97 01/17/20 11:46 85 01/17/20 09:00 Nasal Cannula 2.0 01/17/20 08:00 96.7 61 20 153/74 (100) 98 Intake and Output 01/17/20 01/18/20 19:00 07:00 Intake Total 1130.0 ml 1005.5 ml Output Total 600 ml Balance 1130.0 ml 405.5 ml Intake Oral 120 ml IV Total 1010.0 ml 1005.5 ml Output Urine Total 600 ml # Voids 2 1 # Bowel Movements 1 2 Laboratory Tests 01/17/20 08:50: White Blood Count 9.2, Red Blood Count 3.83L, Hemoglobin 11.8L, Hematocrit 34.2L , Mean Corpuscular Volume 89, Mean Corpuscular Hemoglobin 30.7, Mean Corpuscular Hemoglobin Concent 34.4, Red Cell Distribution Width 14.5, Platelet Count 135L, Mean Platelet Volume 7.6, Neutrophils (%) (Auto) 69.2, Lymphocytes (%) (Auto) 22.5, Monocytes (%) (Auto) 5.6, Eosinophils (%) (Auto) 2.1, Basophils (%) (Auto) 0.7, Sodium Level 158H, Potassium Level 3.9, Chloride Level 127H, Carbon Dioxide Level 21, Blood Urea Nitrogen 43H, Creatinine 1.4H, Estimat Glomerular Filtration Rate 48.3, Glucose Level 164H, Uric Acid 4.8, Calcium Level 7.9L, Phosphorus Level 2.8, Magnesium Level 2.3, Total Bilirubin 0.8, Aspartate Amino Transf (AST/SGOT) 29, Alanine Aminotransferase (ALT/SGPT) 19, Alkaline Phosphatase 83, Total Creatine Kinase 353H, C-Reactive Protein, Quantitative 4.5H, Pro-B-Type Natriuretic Peptide 3123H, Total Protein 6.6, Albumin 3.0L, Globulin 3.6, Albumin/Globulin Ratio 0.8L, Random Vancomycin Level 10.1 01/17/20 10:55: Urine Random Sodium 120H 01/17/20 11:17: POC Whole Blood Glucose 189H 01/17/20 16:54: POC Whole Blood Glucose [Pending] 01/17/20 19:57: POC Whole Blood Glucose [Pending] 01/18/20 04:56: POC Whole Blood Glucose 168H Height (Feet): 5 Height (Inches): 7.00 Weight (Pounds): 161 Objective WDWN NAD clear breath sounds bilaterally without rhonchi or wheeze [id number] without MRG NABS nontender no HSM no CCE nonfocal altered Assessment/Plan Assessment/Plan: IMPRESSION: 1. Leukocytosis, likely sepsis. 2. Hypernatremia, likely prerenal. 3. End-stage renal disease. 4. Diabetes, out of control. 5. Evidence of coronary artery disease and non-STEMI. 6. Lactic acidemia. 7. toxic met encephalopathy 8. dementia RECOMMENDATIONS: Do Not Resuscitate. appreciate Renal, noted Cardiology and ID. IV hydration for now and boluses as needed. Empiric antibiotics and now off Vanco. aspirin only retirement medicine, Zosyn. Follow up laboratories data. dc planning once cleared by all psych for behavioral management impression, plan, and exam edited and reviewed in detail care discussed with Sebastian Khalil MD Jan 18, 2020 07:57
[2020-01-18 08:00] VITALS: BP 159/83
[2020-01-18] MEDS: Donepezil 10mg tab ORAL SCH (09:20)
[2020-01-18] MEDS: medroxyPROGESTERone 10mg tab ORAL SCH (09:20)
[2020-01-18] MEDS: Aspirin EC 81mg tab ORAL SCH (09:20)
[2020-01-18] MEDS: Memantine 5 MG TAB ORAL SCH ×2 (09:20→18:06)
--- NOTE | 2020-01-18 10:07 | NUR ---
Speech Pathology Note (Bedside Dysphagia Evaluation) Code Status: DNR/DNI no alternate feeding Brief Note: Mr. Barba is a-84 year old male admitted [facility] from [facility] on 01/14/2020 for leukocytosis 23.2k, hyperglycemia 924, Hypernatremia 156, hyperkalemia 5.3 c.w elevation of BUN/Creatine 85/2.7, lactic acid 4.5. The VS was tachycardia at 121 (S.T) hypotensive 97/71 with troponin was 4.5. The BNP is 1.222. Current labs: Leukocytosis resolved. hypernatremia stable 158, hyperkalemia resolved, BUN/Creatine baseline, glucose 164 VSS: Temp: 97.8~98.9, Pulse 71~89, RR 22, BP: 141/78~148/83, SPO2: 98~100 on 2 liter Bedside Findings: Mr. Barba is alert, oriented x 0. His spontaneous utterance indicate clear voice. His oral cavity is clear. Given him PO with apple sauce and nectar thick liquid he did not cough. Given him water (Thin), he drunk approximately 150cc. Intermittent, strong cough was noted. Interpretation: 1. Dysphagia with unclear etiology -Aspiration s.s with thin liquid 2. Poor Po intake Plan: 1. Pureed and nectar thick liquid -Aspiration precaution 2. Observe PO intake [employer] follow Krystyna Cornejo
--- NOTE | 2020-01-18 10:37 | Infectious Diseases Prog Note ---
Assessment/Plan Assessment/Plan antibiotics : zosyn A 1. e.coli Urinary tract infection. 2. Leukocytosis resolved 3. Hyperglycemia. 4. Benign prostatic hypertrophy. 5. Renal failure, on dialysis. 6. left kidney stone P 1. continue zosyn 2 more days 2. will follow up cultures Subjective ROS Limited/Unobtainable: Yes Allergies: Coded Allergies: No Known Allergies (Verified , 08/20/09) Objective Last 24 Hour Vital Signs Date Time Temp Pulse Resp B/P (MAP) Pulse Ox O2 Delivery O2 Flow Rate FiO2 01/18/20 09:00 Nasal Cannula 2.0 01/18/20 08:00 97.7 73 22 159/83 (108) 100 01/18/20 08:00 74 01/18/20 04:00 97.8 75 22 148/83 (104) 98 01/18/20 03:32 75 01/18/20 00:00 98.7 71 22 141/78 (99) 99 01/17/20 23:31 75 01/17/20 21:00 Nasal Cannula 2.0 01/17/20 20:00 98.9 89 22 148/69 (95) 100 01/17/20 19:06 96 01/17/20 16:00 97.8 68 20 150/77 (101) 100 01/17/20 15:11 81 01/17/20 12:00 97.4 66 20 137/78 (97) 97 01/17/20 11:46 85 Height (Feet): 5 Height (Inches): 7.00 Weight (Pounds): 161 Respiratory/Chest: lungs clear Cardiovascular: normal rate, regular rhythm, no gallop/murmur Abdomen: soft, non tender Extremities: no edema Microbiology Date/Time Source Procedure Growth Status 01/15/20 12:15 Nasopharynx SARS-CoV-2 RdRp Gene Assay - Final Complete Laboratory Tests Test 01/17/20 10:55 01/17/20 11:17 01/17/20 16:54 01/17/20 19:57 Urine Random Sodium 120 mmol/L (20-110) H POC Whole Blood Glucose 189 MG/DL (74-106) H Pending Pending Test 01/18/20 04:56 POC Whole Blood Glucose 168 MG/DL (74-106) H Current Medications Medications (Trade) Dose Ordered Sig/Mily Route PRN Reason Start Time Stop Time Status Last Admin Dose Admin Acetaminophen (Tylenol) 325 mg Q4H PRN ORAL Mild Pain (Pain Scale 1-3) 01/14/20 20:30 02/13/20 20:29 Acetaminophen (Tylenol) 650 mg Q4H PRN ORAL Moderate Pain (Pain Scale 4-6) 01/14/20 20:30 02/13/20 20:29 Aspirin (Ecotrin) 81 mg DAILY ORAL 01/16/20 09:00 03/01/20 08:59 01/18/20 09:20 Dextrose (Dextrose 50%) 25 ml Q30M PRN IV Hypoglycemia 01/14/20 20:15 04/13/20 20:14 Dextrose (Dextrose 50%) 50 ml Q30M PRN IV Hypoglycemia 01/14/20 20:15 04/13/20 20:14 Donepezil HCl (Aricept) 10 mg DAILY ORAL 01/15/20 09:00 02/14/20 08:59 01/18/20 09:20 Finasteride (Proscar) 5 mg QHS ORAL 01/14/20 21:00 04/13/20 20:59 01/17/20 20:23 Insulin Aspart (NovoLOG) BEFORE MEALS AND HS SUBQ 01/14/20 21:00 04/13/20 20:59 01/18/20 05:32 Medroxyprogesterone Acetate (Provera) 10 mg DAILY ORAL 01/15/20 09:00 04/14/20 08:59 01/18/20 09:20 Memantine (Namenda) 5 mg TWICE A DAY ORAL 01/15/20 09:00 02/14/20 08:59 01/18/20 09:20 Pantoprazole (Protonix) 40 mg BID ORAL 01/15/20 18:00 02/14/20 10:59 01/18/20 09:20 Piperacillin Sod/ Tazobactam Sod 3.375 gm/Sodium Chloride 110 ml @ 27.5 mls/hr Q8HR IVPB 01/14/20 22:00 01/21/20 21:59 01/18/20 05:30 Sodium Chloride 500 ml @ 999 mls/hr Q31M PRN IV For hypotension 01/17/20 00:00 02/16/20 00:00 Sodium Chloride 1,000 ml @ 75 mls/hr [id number] IV 01/14/20 20:15 02/13/20 20:14 01/18/20 01:36 Wendie Frias MD Jan 18, 2020 10:37
[2020-01-18 12:00] VITALS: BP 147/85
--- NOTE | 2020-01-18 12:03 | Cardiac Electrophysiology PN ---
Assessment/Plan Assessment/Plan 1. Four elevated troponin, all more than 4. The EKG does not show any ST elevation; however, there is inferolateral T-wave inversion suggestive of ischemia. The elevated troponin may be partially due to the patient's renal failure and dehydration. Sodium is also 162 as well. The patient is nonverbal and is DNR. We will treat the patient medically. Cannot give the patient beta-kim in view of hypotension and bradycardia I will just keep the patient on aspirin . Off statin as CPK was more than 1000 2. Hypotension, improved. DCed midodrine as had junctional rhythm. Echocardiogram showed normal left ventricular systolic function. 3. Junctional rhythm at 40 while awake. DCed Midodrine. 4. Uncontrolled diabetes. 5. Sepsis. White count of 23,000, on antibiotics.Improved 6. ARF. BUN/cr 85/2.7 improved to 43/1.4 7. Severe hypernatremia, again on IV fluids, per Dr. Allen. Na 158 8. UTI. 9. Failed swallow eval. DW RN Subjective Subjective All 4 troponins are flat and around 4. Nonverbal, septic , renal failure and hypernatremic. Demented, DNR Not a cath candidate Had transient junctional rhythm down to 40s at 10.44 am on 01/16/20 On 2 liter nasal cannula. Failed swallow eval and not eating and no NGT On 02/11 NS at 75 cc/hr Objective Last 24 Hour Vital Signs Date Time Temp Pulse Resp B/P (MAP) Pulse Ox O2 Delivery O2 Flow Rate FiO2 01/18/20 09:00 Nasal Cannula 2.0 01/18/20 08:00 97.7 73 22 159/83 (108) 100 01/18/20 08:00 74 01/18/20 04:00 97.8 75 22 148/83 (104) 98 01/18/20 03:32 75 01/18/20 00:00 98.7 71 22 141/78 (99) 99 01/17/20 23:31 75 01/17/20 21:00 Nasal Cannula 2.0 01/17/20 20:00 98.9 89 22 148/69 (95) 100 01/17/20 19:06 96 01/17/20 16:00 97.8 68 20 150/77 (101) 100 01/17/20 15:11 81 01/17/20 12:00 97.4 66 20 137/78 (97) 97 Intake and Output 01/17/20 01/18/20 19:00 07:00 Intake Total 1130.0 ml 1005.5 ml Output Total 600 ml Balance 1130.0 ml 405.5 ml Intake Oral 120 ml IV Total 1010.0 ml 1005.5 ml Output Urine Total 600 ml # Voids 2 1 # Bowel Movements 1 2 Laboratory Tests Test 01/17/20 16:54 01/17/20 19:57 01/18/20 04:56 POC Whole Blood Glucose Pending Pending 168 MG/DL (74-106) H Microbiology Date/Time Source Procedure Growth Status 01/15/20 12:15 Nasopharynx SARS-CoV-2 RdRp Gene Assay - Final Complete Objective HEAD AND NECK: No JVD. LUNGS: Coarse rhonchi. CARDIOVASCULAR: Regular S1 and S2 with no gallop or murmur. ABDOMEN: Soft. EXTREMITIES: No pitting edema. Jose Womack MD Jan 18, 2020 12:03
--- NOTE | 2020-01-18 14:00 | NUR ---
NURSE NOTES: Dr Allen made aware of sodium 158 today. No new orders at this time.
--- NOTE | 2020-01-18 14:18 | NUR ---
NURSE NOTES: Patient has order for urine collection, has been collected and delivered to lab.
--- NOTE | 2020-01-18 15:21 | Nephrology Progress Note ---
Assessment/Plan Problem List: (1) Renal failure (ARF), acute on chronic (2) BPH (benign prostatic hyperplasia) (3) AMS (altered mental status) (4) Sepsis (5) Hyperglycemia (6) Elevated troponin (7) UTI (urinary tract infection) (8) Hypernatremia Assessment Patient admitted with altered mental status and sepsis. From renal standpoint to view the chemistry panel suggestive of dehydration and mainly prerenal acidemia. The ER doctor states that the patient has end-stage renal disease on hemodialysis however no fistula and no permacath was detected upon examination of the patient Hyperglycemia Evidence of UTI Hypernatremia Elevated troponin Plan January 17: No CHEM panel drawn today. Patient continues to be on IV fluid. Will check labs electrolytes and CPK in a.m. January 16: Lab reviewed. Serum creatinine lower. Serum sodium lowering. CPK lowering. Continue slow hydration. Continue per consultants. January 15: Labs reviewed. Electrolyte within normal range. Serum sodium lowering. Serum creatinine lowering. CPK remains elevated. Cholesterol- lowering agent discontinued. Continue to monitor renal parameters and electrolytes. Serum troponin up over 4. Per orders. Will check lipid panel. Continue per consultants. January 14: Half-normal saline 100 cc an hour Urine for spot sodium, urine for eosinophils Monitor renal parameters Keep the blood sugar in check Fluid challenge, hemodynamic support Avoid nephrotoxic's Per orders Subjective ROS Limited/Unobtainable: No Constitutional: Reports: malaise, weakness Objective Objective Last 24 Hour Vital Signs Date Time Temp Pulse Resp B/P (MAP) Pulse Ox O2 Delivery O2 Flow Rate FiO2 01/18/20 12:00 84 01/18/20 12:00 97.8 90 20 147/85 (105) 100 01/18/20 09:00 Nasal Cannula 2.0 01/18/20 08:00 97.7 73 22 159/83 (108) 100 01/18/20 08:00 74 01/18/20 04:00 97.8 75 22 148/83 (104) 98 01/18/20 03:32 75 01/18/20 00:00 98.7 71 22 141/78 (99) 99 01/17/20 23:31 75 01/17/20 21:00 Nasal Cannula 2.0 01/17/20 20:00 98.9 89 22 148/69 (95) 100 01/17/20 19:06 96 01/17/20 16:00 97.8 68 20 150/77 (101) 100 Intake and Output 01/17/20 01/18/20 19:00 07:00 Intake Total 1130.0 ml 1005.5 ml Output Total 600 ml Balance 1130.0 ml 405.5 ml Intake Oral 120 ml IV Total 1010.0 ml 1005.5 ml Output Urine Total 600 ml # Voids 2 1 # Bowel Movements 1 2 Current Medications Medications (Trade) Dose Ordered Sig/Mily Route PRN Reason Start Time Stop Time Status Last Admin Dose Admin Acetaminophen (Tylenol) 325 mg Q4H PRN ORAL Mild Pain (Pain Scale 1-3) 01/14/20 20:30 02/13/20 20:29 Acetaminophen (Tylenol) 650 mg Q4H PRN ORAL Moderate Pain (Pain Scale 4-6) 01/14/20 20:30 02/13/20 20:29 Aspirin (Ecotrin) 81 mg DAILY ORAL 01/16/20 09:00 03/01/20 08:59 01/18/20 09:20 Dextrose (Dextrose 50%) 25 ml Q30M PRN IV Hypoglycemia 01/14/20 20:15 04/13/20 20:14 Dextrose (Dextrose 50%) 50 ml Q30M PRN IV Hypoglycemia 01/14/20 20:15 04/13/20 20:14 Donepezil HCl (Aricept) 10 mg DAILY ORAL 01/15/20 09:00 02/14/20 08:59 01/18/20 09:20 Finasteride (Proscar) 5 mg QHS ORAL 01/14/20 21:00 04/13/20 20:59 01/17/20 20:23 Insulin Aspart (NovoLOG) BEFORE MEALS AND HS SUBQ 01/14/20 21:00 04/13/20 20:59 01/18/20 13:01 Medroxyprogesterone Acetate (Provera) 10 mg DAILY ORAL 01/15/20 09:00 04/14/20 08:59 01/18/20 09:20 Memantine (Namenda) 5 mg TWICE A DAY ORAL 01/15/20 09:00 02/14/20 08:59 01/18/20 09:20 Pantoprazole (Protonix) 40 mg BID ORAL 01/15/20 18:00 02/14/20 10:59 12/8/20 09:20 Piperacillin Sod/ Tazobactam Sod 3.375 gm/Sodium Chloride 110 ml @ 27.5 mls/hr Q8HR IVPB 01/14/20 22:00 01/21/20 21:59 01/18/20 13:43 Sodium Chloride 500 ml @ 999 mls/hr Q31M PRN IV For hypotension 01/17/20 00:00 02/16/20 00:00 Sodium Chloride 1,000 ml @ 75 mls/hr [id number] IV 01/14/20 20:15 02/13/20 20:14 01/18/20 01:36 Laboratory Tests 01/17/20 16:54: POC Whole Blood Glucose [Pending] 01/17/20 19:57: POC Whole Blood Glucose [Pending] 01/18/20 04:56: POC Whole Blood Glucose 168H 01/18/20 11:57: POC Whole Blood Glucose 208H 01/18/20 13:51: Urine Random Sodium 164H Height (Feet): 5 Height (Inches): 7.00 Weight (Pounds): 161 General Appearance: no apparent distress Cardiovascular: normal rate Respiratory/Chest: decreased breath sounds Abdomen: distended Phuc Allen MD Jan 18, 2020 15:21
[2020-01-18 16:00] VITALS: BP 149/80
--- NOTE | 2020-01-18 19:21 | NUR ---
NURSE HAND-OFF REPORT: Important Events on Shift:[Urine random sodium and antibiotics] Patient Status: [stable, DNR] Diet: [regular pureed nectar thick liquids] Pending Orders: [N/A] Pending Results/Labs:[N/A] Pending MD notification:[N/A] Latest Vital Signs: Temperature 97.9 , Pulse 69 , B/P 149 /80 , Respiratory Rate 22 , O2 SAT 97 , Nasal Cannula, O2 Flow Rate 2.0 . Vital Sign Comment: [] EKG Rhythm: Sinus Rhythm Rhythm change?: N MD Notified?: N -Dr. Vu KESSLER Response: Latest Eric Fall Score: 70 Fall Risk: High Risk Safety Measures: Call light Within Reach, Bed Alarm Zone 1, Side Rails Side Rails x3, Bed position Low and Locked. Fall Precautions: Yellow Socks Yellow Gown Patient Fall Education Report given to [TIM Christensen].
--- NOTE | 2020-01-18 19:38 | NUR ---
NURSE NOTES: Report received from TIM Connelly. Patient is awake on bed, alert and oriented x 0, mumbled words, eyes open with pain stimulation. 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 On oxygen via nasal cannula @ 2 Lpm with no desaturation noted. On regular diet, pureed moist nectar thick. IV site is on right hand g-22 and left hand g-20 both saline locked that is patent an intact. Safety measures are in place, bed in lowest and locked position, side rails up x 2, will continue plan of care.
[2020-01-18 20:00] VITALS: BP 131/68
--- NOTE | 2020-01-18 23:04 | Psychiatric Progress Note ---
Psychiatry Progress Note Psychiatry Progress Note Medications Current Medications Medications (Trade) Dose Ordered Sig/Mily Route PRN Reason Start Time Stop Time Status Last Admin Dose Admin Acetaminophen (Tylenol) 325 mg Q4H PRN ORAL Mild Pain (Pain Scale 1-3) 01/14/20 20:30 02/13/20 20:29 Acetaminophen (Tylenol) 650 mg Q4H PRN ORAL Moderate Pain (Pain Scale 4-6) 01/14/20 20:30 02/13/20 20:29 Aspirin (Ecotrin) 81 mg DAILY ORAL 01/16/20 09:00 03/01/20 08:59 01/18/20 09:20 Dextrose (Dextrose 50%) 25 ml Q30M PRN IV Hypoglycemia 01/14/20 20:15 04/13/20 20:14 Dextrose (Dextrose 50%) 50 ml Q30M PRN IV Hypoglycemia 01/14/20 20:15 04/13/20 20:14 Donepezil HCl (Aricept) 10 mg DAILY ORAL 01/15/20 09:00 02/14/20 08:59 01/18/20 09:20 Finasteride (Proscar) 5 mg QHS ORAL 01/14/20 21:00 04/13/20 20:59 01/18/20 20:58 Insulin Aspart (NovoLOG) BEFORE MEALS AND HS SUBQ 01/14/20 21:00 04/13/20 20:59 01/18/20 21:12 Medroxyprogesterone Acetate (Provera) 10 mg DAILY ORAL 01/15/20 09:00 04/14/20 08:59 01/18/20 09:20 Memantine (Namenda) 5 mg TWICE A DAY ORAL 01/15/20 09:00 02/14/20 08:59 01/18/20 18:06 Pantoprazole (Protonix) 40 mg BID ORAL 01/15/20 18:00 02/14/20 10:59 01/18/20 18:06 Piperacillin Sod/ Tazobactam Sod 3.375 gm/Sodium Chloride 110 ml @ 27.5 mls/hr Q8HR IVPB 01/14/20 22:00 01/21/20 21:59 01/18/20 21:42 Sodium Chloride 500 ml @ 999 mls/hr Q31M PRN IV For hypotension 01/17/20 00:00 02/16/20 00:00 Sodium Chloride 1,000 ml @ 75 mls/hr [id number] IV 01/14/20 20:15 02/13/20 20:14 01/18/20 18:07 Neurological/Psychiatric: Reports: anxiety, depressed, emotional problems, headache Allergies: Coded Allergies: No Known Allergies (Verified , 08/20/09) Objective Data Height (Feet): 5 Height (Inches): 7.00 Weight (Pounds): 161 General Appearance: no apparent distress Additional Comments: MENTAL STATUS EXAMINATION: Patient is alert and oriented times self. Mood is anxious. Affect is blunted. Congruent with mood. Thought process is concrete. Thought content, no suicidal or homicidal ideation. Cognition is impaired. Insight and judgment are impaired. ASSESSMENT: [place] I Acute toxic encephalopathy. [place] II Deferred. [place] III As above. [place] IV Low. [place] V 20. PLAN: 1. We will start the patient on low dose of antipsychotics. 2. Provide the patient with reality orientation and supportive therapy. Kaya Lagos MD Jan 18, 2020 23:04
[2020-01-19] VITALS: BP 146/75
[2020-01-19 04:00] VITALS: BP 155/88
[2020-01-19] MEDS: Piperacillin/Tazobactam 3.375 GM in NS 110 ML IVPB SCH ×3 (06:00→22:00)
[2020-01-19] MEDS: NovoLOG Insulin Flexpen SUBQ SCH ×4 (06:16→20:52)
--- NOTE | 2020-01-19 07:17 | NUR ---
NURSE HAND-OFF REPORT: Important Events on Shift: PATIENT HAS BEEN RESTING WELL THE WHOLE SHIFT, NO DESATURATION NOTED. NO IV ACCESS ATN THIS TIME. ENDORSED TO AM NURSE TO FOLLOW UP WITH THE MD IF THEY ARE GOING TO AGREE WITH PICC LINE Patient Status: Patient is asleep in stabel codnition. Plan of care endorsed. Diet: Regular, pureed moist, nectar thick liquid and crush medication. Pending Orders: none Pending Results/Labs: AM lab result Pending MD notification:none Latest Vital Signs: Temperature 99.3 , Pulse 65 , B/P 155 /88 , Respiratory Rate 23 , O2 SAT 99 , Nasal Cannula, O2 Flow Rate 2.0 . Vital Sign Comment: stable EKG Rhythm: Sinus Rhythm Rhythm change?: N MD Notified?: N -Dr. Vu KESSLER Response: Latest Eric Fall Score: 70 Fall Risk: High Risk Safety Measures: Call light Within Reach, Bed Alarm Zone 1, Side Rails Side Rails x3, Bed position Low and Locked. Fall Precautions: Yellow Socks Yellow Gown Patient Fall Education Report given to TIM Dong.
--- NOTE | 2020-01-19 07:18 | NUR ---
NURSE NOTES: Patient seen in bed in low fowlers position sleeping with no acute signs of distress. The patient is receiving supplemental oxygen via nasal Cannula 2L/min. The patients bed is in the lowest position, locked, bed rails x2, bed alarm set to zone 1 and call light within reach.
[2020-01-19 08:00] VITALS: BP 160/79
[2020-01-19 08:45] LABS: BASOPHILS % (AUTO) 0.7 % (0.0-2.0); EOSINOPHILS % (AUTO) 2.1 % (0.0-3.0); HEMATOCRIT 33.5 % (42.0-52.0); HEMOGLOBIN 11.9 G/DL (14.2-18.0); LYMPHOCYTES % (AUTO) 28.4 % (20.0-45.0); MEAN CORPUSCULAR VOLUME 88 FL (80-99); MONOCYTES % (AUTO) 5.8 % (1.0-10.0); PLATELET COUNT 144 K/UL (150-450); RED CELL DISTRIBUTION WIDTH 13.6 % (11.6-14.8); WHITE BLOOD COUNT 8.2 K/UL (4.8-10.8)
[2020-01-19 08:59] LABS: CREATINE KINASE 248 U/L (26-308)
[2020-01-19 09:11] LABS: ALBUMIN 2.6 G/DL (3.4-5.0); ALBUMIN/GLOBULIN RATIO 0.7 (1.0-2.7); BILIRUBIN,TOTAL 0.8 MG/DL (0.2-1.0); CALCIUM 8.2 MG/DL (8.5-10.1); CREATININE 1.2 MG/DL (0.55-1.30); PHOSPHORUS 2.2 MG/DL (2.5-4.9)
[2020-01-19] MEDS: Memantine 5 MG TAB ORAL SCH ×2 (09:16→17:30)
[2020-01-19] MEDS: medroxyPROGESTERone 10mg tab ORAL SCH (09:16)
[2020-01-19] MEDS: Donepezil 10mg tab ORAL SCH (09:16)
[2020-01-19] MEDS: Aspirin EC 81mg tab ORAL SCH (09:16)
--- NOTE | 2020-01-19 09:29 | NUR ---
CASE MANAGEMENT:REVIEW 01/19/20 SI: SEPSIS. HYPERNATREMIA. E COLI UTI 99.3 65 23 155/88 99% ON 2L/NC H/H-11.9/33.5 PLT-144 NA+151 K-3.0 IS: IV ZOSYN Q8HRS IVF@75/HR ASA PO QD NAMENDA PO BID ARICEPT PO QD : TELEMETRY STATUS DCP: FROM [facility]
--- NOTE | 2020-01-19 10:00 | NUR ---
Speech Pathology Note (Dysphagia Rx follow up) BNP (01/14/2020) 1.222, (01/19/2020) 2.021 S: Increase bilateral upper extremity edema, slightly declined level of alertness, declined PO intake. O: 1. Swallow safety: Pt began to declined condition specific to level of alertness, and PO intake. Swallow safety and aspiration prevention was managed by dietary texture modification, and no forceful feeding. I discussed plans of care with nursing staff. A: 1. Begins to have aspiration risk with reduced level of alertness P: 1. Continue with pureed and [place] thick liquid -Aspiration precaution -Observe PO intake Krystyna Cornejo
--- NOTE | 2020-01-19 10:10 | NUR ---
RD ASSESSMENT & RECOMMENDATIONS SEE CARE ACTIVITY FOR COMPLETE ASSESSMENT DAILY ESTIMATED NEEDS: Needs based on DM 68.4kg 25-30 kcals/kg 8141-1538 total kcals 1-1.5 g protein/kg 68-103 g total protein 20-30 mL/kg 9398-2940 total fluid mLs NUTRITION DIAGNOSIS: Swallowing difficulty related to dysphagia as evidenced by pt on puree texture diet w/ NTL, poor to variable po intake. (CURRENT DIET: Regular diet puree/ NTL) PO DIET RECOMMENDATIONS--->>> Maintain regular diet/ texture per [employer] ENTERAL NUTRITION RECOMMENDATIONS--->>NO NGT FEEDS PER POLST ADDITIONAL RECOMMENDATIONS: 1) Add supplement w/ meals-> rec Glucerna 1 tetra TID for BG control 2) Monitor daily wts 3) Add snacks as tolerated 4) Replete lytes as needed (Low k, phos)
--- NOTE | 2020-01-19 10:33 | Cardiac Electrophysiology PN ---
Assessment/Plan Assessment/Plan 1. Four elevated troponin, all more than 4. The EKG does not show any ST elevation; however, there is inferolateral T-wave inversion suggestive of ischemia. The elevated troponin may be partially due to the patient's renal failure and dehydration. Sodium is also 162 as well. The patient is nonverbal and is DNR. We will treat the patient medically. Cannot give the patient beta-kim in view of hypotension and bradycardia I will just keep the patient on aspirin . Off statin as CPK was more than 1000 2. Hypotension, improved. DCed midodrine as had junctional rhythm. Echocardiogram showed normal left ventricular systolic function. 3. Junctional rhythm at 40 while awake. DCed Midodrine. 4. Uncontrolled diabetes. 5. Sepsis. White count of 23,000, on antibiotics.Improved 6. ARF. BUN/cr 85/2.7 improved to 43/1.4 7. Severe hypernatremia, again on 02/11 NS, per Dr. Allen. Na still 151 today 8. UTI. 9. Failed swallow eval. DW RN Subjective Subjective All 4 troponins are flat and around 4 due to septic , renal failure and hypernatremic. Demented, DNR, nonverbal Not a cath candidate Had transient junctional rhythm down to 40s at 10.44 am on 01/16/20 On 2 liter nasal cannula. Failed swallow eval and not eating and no NGT On 02/11 NS at 75 cc/hr as NA still high. RN at bedside Objective Last 24 Hour Vital Signs Date Time Temp Pulse Resp B/P (MAP) Pulse Ox O2 Delivery O2 Flow Rate FiO2 01/19/20 09:00 Nasal Cannula 2.0 01/19/20 08:00 97.9 100 22 160/79 (106) 100 01/19/20 08:00 68 01/19/20 04:00 99.3 65 23 155/88 (110) 99 01/19/20 04:00 76 01/19/20 00:00 73 01/19/20 00:00 98.9 73 20 146/75 (98) 100 01/18/20 21:00 Nasal Cannula 2.0 01/18/20 20:00 99.1 81 24 131/68 (89) 100 01/18/20 16:00 97.9 72 22 149/80 (103) 97 01/18/20 16:00 69 01/18/20 12:00 84 01/18/20 12:00 97.8 90 20 147/85 (105) 100 Intake and Output 01/18/20 01/19/20 19:00 07:00 Intake Total 780 ml 50 ml Output Total 450 ml Balance 780 ml -400 ml Intake Oral 180 ml 50 ml IV Total 600 ml Output Urine Total 450 ml # Voids 3 # Bowel Movements 1 1 Laboratory Tests Test 01/18/20 11:57 01/18/20 13:51 01/18/20 16:21 01/18/20 20:42 POC Whole Blood Glucose 208 MG/DL (74-106) H 162 MG/DL (74-106) H 208 MG/DL (74-106) H Urine Random Sodium 164 mmol/L (20-110) H Test 01/19/20 06:15 01/19/20 07:30 POC Whole Blood Glucose 155 MG/DL (74-106) H White Blood Count 8.2 K/UL (4.8-10.8) Red Blood Count 3.80 M/UL (4.70-6.10) L Hemoglobin 11.9 G/DL (14.2-18.0) L Hematocrit 33.5 % (42.0-52.0) L Mean Corpuscular Volume 88 FL (80-99) Mean Corpuscular Hemoglobin 31.2 PG (27.0-31.0) H Mean Corpuscular Hemoglobin Concent 35.4 G/DL (32.0-36.0) Red Cell Distribution Width 13.6 % (11.6-14.8) Platelet Count 144 K/UL (150-450) L Mean Platelet Volume 6.8 FL (6.5-10.1) Neutrophils (%) (Auto) 63.0 % (45.0-75.0) Lymphocytes (%) (Auto) 28.4 % (20.0-45.0) Monocytes (%) (Auto) 5.8 % (1.0-10.0) Eosinophils (%) (Auto) 2.1 % (0.0-3.0) Basophils (%) (Auto) 0.7 % (0.0-2.0) Sodium Level 151 MMOL/L (136-145) H Potassium Level 3.0 MMOL/L (3.5-5.1) L Chloride Level 120 MMOL/L (98-107) H Carbon Dioxide Level 20 MMOL/L (21-32) L Anion Gap 11 mmol/L (5-15) Blood Urea Nitrogen 17 mg/dL (7-18) Creatinine 1.2 MG/DL (0.55-1.30) Estimat Glomerular Filtration Rate 57.7 mL/min (>60) Glucose Level 163 MG/DL (74-106) H Calcium Level 8.2 MG/DL (8.5-10.1) L Phosphorus Level 2.2 MG/DL (2.5-4.9) L Magnesium Level 2.1 MG/DL (1.8-2.4) Total Bilirubin 0.8 MG/DL (0.2-1.0) Aspartate Amino Transf (AST/SGOT) 28 U/L (15-37) Alanine Aminotransferase (ALT/SGPT) 20 U/L (12-78) Alkaline Phosphatase 95 U/L (46-116) Total Creatine Kinase 248 U/L (26-308) C-Reactive Protein, Quantitative 2.5 mg/dL (0.00-0.90) H Pro-B-Type Natriuretic Peptide 2021 pg/mL (0-125) H Total Protein 6.4 G/DL (6.4-8.2) Albumin 2.6 G/DL (3.4-5.0) L Globulin 3.8 g/dL Albumin/Globulin Ratio 0.7 (1.0-2.7) L Objective HEAD AND NECK: No JVD. LUNGS: Coarse rhonchi. CARDIOVASCULAR: Regular S1 and S2 with no gallop or murmur. ABDOMEN: Soft. EXTREMITIES: No pitting edema. Jose Womack MD Jan 19, 2020 10:33
--- NOTE | 2020-01-19 11:27 | Infectious Diseases Prog Note ---
Assessment/Plan Assessment/Plan antibiotics : zosyn A 1. e.coli Urinary tract infection. 2. Leukocytosis resolved 3. Hyperglycemia. 4. Benign prostatic hypertrophy. 5. Renal failure, on dialysis. 6. left kidney stone P 1. continue zosyn 1 more day 2. will follow up cultures Subjective ROS Limited/Unobtainable: Yes Allergies: Coded Allergies: No Known Allergies (Verified , 08/20/09) Objective Last 24 Hour Vital Signs Date Time Temp Pulse Resp B/P (MAP) Pulse Ox O2 Delivery O2 Flow Rate FiO2 01/19/20 09:00 Nasal Cannula 2.0 01/19/20 08:00 97.9 100 22 160/79 (106) 100 01/19/20 08:00 68 01/19/20 04:00 99.3 65 23 155/88 (110) 99 01/19/20 04:00 76 01/19/20 00:00 73 01/19/20 00:00 98.9 73 20 146/75 (98) 100 01/18/20 21:00 Nasal Cannula 2.0 01/18/20 20:00 99.1 81 24 131/68 (89) 100 01/18/20 16:00 97.9 72 22 149/80 (103) 97 01/18/20 16:00 69 01/18/20 12:00 84 01/18/20 12:00 97.8 90 20 147/85 (105) 100 Height (Feet): 5 Height (Inches): 7.00 Weight (Pounds): 161 Respiratory/Chest: lungs clear Cardiovascular: normal rate, regular rhythm, no gallop/murmur Abdomen: soft, non tender Extremities: no edema Laboratory Tests Test 01/18/20 11:57 01/18/20 13:51 01/18/20 16:21 01/18/20 20:42 POC Whole Blood Glucose 208 MG/DL (74-106) H 162 MG/DL (74-106) H 208 MG/DL (74-106) H Urine Random Sodium 164 mmol/L (20-110) H Test 01/19/20 06:15 01/19/20 07:30 POC Whole Blood Glucose 155 MG/DL (74-106) H White Blood Count 8.2 K/UL (4.8-10.8) Red Blood Count 3.80 M/UL (4.70-6.10) L Hemoglobin 11.9 G/DL (14.2-18.0) L Hematocrit 33.5 % (42.0-52.0) L Mean Corpuscular Volume 88 FL (80-99) Mean Corpuscular Hemoglobin 31.2 PG (27.0-31.0) H Mean Corpuscular Hemoglobin Concent 35.4 G/DL (32.0-36.0) Red Cell Distribution Width 13.6 % (11.6-14.8) Platelet Count 144 K/UL (150-450) L Mean Platelet Volume 6.8 FL (6.5-10.1) Neutrophils (%) (Auto) 63.0 % (45.0-75.0) Lymphocytes (%) (Auto) 28.4 % (20.0-45.0) Monocytes (%) (Auto) 5.8 % (1.0-10.0) Eosinophils (%) (Auto) 2.1 % (0.0-3.0) Basophils (%) (Auto) 0.7 % (0.0-2.0) Sodium Level 151 MMOL/L (136-145) H Potassium Level 3.0 MMOL/L (3.5-5.1) L Chloride Level 120 MMOL/L (98-107) H Carbon Dioxide Level 20 MMOL/L (21-32) L Anion Gap 11 mmol/L (5-15) Blood Urea Nitrogen 17 mg/dL (7-18) Creatinine 1.2 MG/DL (0.55-1.30) Estimat Glomerular Filtration Rate 57.7 mL/min (>60) Glucose Level 163 MG/DL (74-106) H Calcium Level 8.2 MG/DL (8.5-10.1) L Phosphorus Level 2.2 MG/DL (2.5-4.9) L Magnesium Level 2.1 MG/DL (1.8-2.4) Total Bilirubin 0.8 MG/DL (0.2-1.0) Aspartate Amino Transf (AST/SGOT) 28 U/L (15-37) Alanine Aminotransferase (ALT/SGPT) 20 U/L (12-78) Alkaline Phosphatase 95 U/L (46-116) Total Creatine Kinase 248 U/L (26-308) C-Reactive Protein, Quantitative 2.5 mg/dL (0.00-0.90) H Pro-B-Type Natriuretic Peptide 2021 pg/mL (0-125) H Total Protein 6.4 G/DL (6.4-8.2) Albumin 2.6 G/DL (3.4-5.0) L Globulin 3.8 g/dL Albumin/Globulin Ratio 0.7 (1.0-2.7) L Current Medications Medications (Trade) Dose Ordered Sig/Mily Route PRN Reason Start Time Stop Time Status Last Admin Dose Admin Acetaminophen (Tylenol) 325 mg Q4H PRN ORAL Mild Pain (Pain Scale 1-3) 01/14/20 20:30 02/13/20 20:29 Acetaminophen (Tylenol) 650 mg Q4H PRN ORAL Moderate Pain (Pain Scale 4-6) 01/14/20 20:30 02/13/20 20:29 Aspirin (Ecotrin) 81 mg DAILY ORAL 01/16/20 09:00 03/01/20 08:59 01/19/20 09:16 Dextrose 1,000 ml @ 50 mls/hr Q20H IV 01/19/20 10:30 02/18/20 10:29 01/19/20 10:30 Dextrose (Dextrose 50%) 25 ml Q30M PRN IV Hypoglycemia 01/14/20 20:15 04/13/20 20:14 Dextrose (Dextrose 50%) 50 ml Q30M PRN IV Hypoglycemia 01/14/20 20:15 04/13/20 20:14 Donepezil HCl (Aricept) 10 mg DAILY ORAL 01/15/20 09:00 02/14/20 08:59 01/19/20 09:16 Finasteride (Proscar) 5 mg QHS ORAL 01/14/20 21:00 04/13/20 20:59 01/18/20 20:58 Insulin Aspart (NovoLOG) BEFORE MEALS AND HS SUBQ 01/14/20 21:00 04/13/20 20:59 01/19/20 06:16 Medroxyprogesterone Acetate (Provera) 10 mg DAILY ORAL 01/15/20 09:00 04/14/20 08:59 01/19/20 09:16 Memantine (Namenda) 5 mg TWICE A DAY ORAL 01/15/20 09:00 1/4/21 08:59 01/19/20 09:16 Pantoprazole (Protonix) 40 mg BID ORAL 01/15/20 18:00 02/14/20 10:59 01/19/20 09:16 Piperacillin Sod/ Tazobactam Sod 3.375 gm/Sodium Chloride 110 ml @ 27.5 mls/hr Q8HR IVPB 01/14/20 22:00 01/21/20 21:59 01/18/20 21:42 Potassium Phosphate 250 ml @ 62.5 mls/hr Q4H IVPB 01/19/20 12:00 01/19/20 19:59 Sodium Chloride 500 ml @ 999 mls/hr Q31M PRN IV For hypotension 01/17/20 00:00 02/16/20 00:00 Wendie Frias MD Jan 19, 2020 11:27
[2020-01-19 12:00] VITALS: BP 115/62
[2020-01-19] MEDS: Potassium Phosphate 15mm/250ml 250 ML IVPB SCH ×2 (12:06→16:21)
--- NOTE | 2020-01-19 12:33 | General Progress Note ---
Subjective ROS Limited/Unobtainable: Yes Allergies: Coded Allergies: No Known Allergies (Verified , 08/20/09) Subjective all consultants appreciated no distress still with elevated sodium but better repeat labs noted renal noted Objective Last 24 Hour Vital Signs Date Time Temp Pulse Resp B/P (MAP) Pulse Ox O2 Delivery O2 Flow Rate FiO2 01/19/20 12:00 97.9 75 20 115/62 (79) 100 01/19/20 09:00 Nasal Cannula 2.0 01/19/20 08:00 97.9 100 22 160/79 (106) 100 01/19/20 08:00 68 01/19/20 04:00 99.3 65 23 155/88 (110) 99 01/19/20 04:00 76 01/19/20 00:00 73 01/19/20 00:00 98.9 73 20 146/75 (98) 100 01/18/20 21:00 Nasal Cannula 2.0 01/18/20 20:00 99.1 81 24 131/68 (89) 100 01/18/20 16:00 97.9 72 22 149/80 (103) 97 01/18/20 16:00 69 Intake and Output 01/18/20 01/19/20 19:00 07:00 Intake Total 780 ml 50 ml Output Total 450 ml Balance 780 ml -400 ml Intake Oral 180 ml 50 ml IV Total 600 ml Output Urine Total 450 ml # Voids 3 # Bowel Movements 1 1 Laboratory Tests 01/18/20 13:51: Urine Random Sodium 164H 01/18/20 16:21: POC Whole Blood Glucose 162H 01/18/20 20:42: POC Whole Blood Glucose 208H 01/19/20 06:15: POC Whole Blood Glucose 155H 01/19/20 07:30: White Blood Count 8.2, Red Blood Count 3.80L, Hemoglobin 11.9L, Hematocrit 33.5L , Mean Corpuscular Volume 88, Mean Corpuscular Hemoglobin 31.2H, Mean Corpuscular Hemoglobin Concent 35.4, Red Cell Distribution Width 13.6, Platelet Count 144L, Mean Platelet Volume 6.8, Neutrophils (%) (Auto) 63.0, Lymphocytes (%) (Auto) 28.4, Monocytes (%) (Auto) 5.8, Eosinophils (%) (Auto) 2.1, Basophils (%) (Auto) 0.7, Sodium Level 151H, Potassium Level 3.0L, Chloride Level 120H, Carbon Dioxide Level 20L, Anion Gap 11, Blood Urea Nitrogen 17, Creatinine 1.2, Estimat Glomerular Filtration Rate 57.7, Glucose Level 163H, Calcium Level 8.2L, Phosphorus Level 2.2L, Magnesium Level 2.1, Total Bilirubin 0.8, Aspartate Amino Transf (AST/SGOT) 28, Alanine Aminotransferase (ALT/SGPT) 20, Alkaline Phosphatase 95, Total Creatine Kinase 248, C-Reactive Protein, Quantitative 2.5H , Pro-B-Type Natriuretic Peptide 2021H, Total Protein 6.4, Albumin 2.6L, Globulin 3.8, Albumin/Globulin Ratio 0.7L 01/19/20 11:48: POC Whole Blood Glucose 190H Height (Feet): 5 Height (Inches): 7.00 Weight (Pounds): 161 Objective WDWN NAD clear breath sounds bilaterally without rhonchi or wheeze [id number] without MRG NABS nontender no HSM no CCE nonfocal altered Assessment/Plan Assessment/Plan: IMPRESSION: 1. Leukocytosis, likely sepsis. 2. Hypernatremia, likely prerenal. 3. End-stage renal disease. 4. Diabetes, out of control. 5. Evidence of coronary artery disease and non-STEMI. 6. Lactic acidemia. 7. toxic met encephalopathy 8. dementia RECOMMENDATIONS: Do Not Resuscitate. appreciate Renal, noted Cardiology and ID. IV hydration for now and noted antibiotics and now off Vanco. aspirin only half-way medicine, Zosyn. Follow up laboratories data. dc planning once cleared by all and roxanne improved psych for behavioral management impression, plan, and exam edited and reviewed in detail care discussed with Sebastian Khalil MD Jan 19, 2020 12:32
--- NOTE | 2020-01-19 14:32 | Nephrology Progress Note ---
Assessment/Plan Problem List: (1) Renal failure (ARF), acute on chronic (2) BPH (benign prostatic hyperplasia) (3) AMS (altered mental status) (4) Sepsis (5) Hyperglycemia (6) Elevated troponin (7) UTI (urinary tract infection) (8) Hypernatremia Assessment Patient admitted with altered mental status and sepsis. From renal standpoint to view the chemistry panel suggestive of dehydration and mainly prerenal acidemia. The ER doctor states that the patient has end-stage renal disease on hemodialysis however no fistula and no permacath was detected upon examination of the patient Hyperglycemia Evidence of UTI Hypernatremia Elevated troponin Plan January 18: Labs reviewed. Abnormal electrolytes noted and addressed per orders. January 17: No CHEM panel drawn today. Patient continues to be on IV fluid. Will check labs electrolytes and CPK in a.m. January 16: Lab reviewed. Serum creatinine lower. Serum sodium lowering. CPK lowering. Continue slow hydration. Continue per consultants. January 15: Labs reviewed. Electrolyte within normal range. Serum sodium lowering. Serum creatinine lowering. CPK remains elevated. Cholesterol- lowering agent discontinued. Continue to monitor renal parameters and electrolytes. Serum troponin up over 4. Per orders. Will check lipid panel. Continue per consultants. January 14: Half-normal saline 100 cc an hour Urine for spot sodium, urine for eosinophils Monitor renal parameters Keep the blood sugar in check Fluid challenge, hemodynamic support Avoid nephrotoxic's Per orders Subjective ROS Limited/Unobtainable: Yes Objective Objective Last 24 Hour Vital Signs Date Time Temp Pulse Resp B/P (MAP) Pulse Ox O2 Delivery O2 Flow Rate FiO2 01/19/20 12:00 72 01/19/20 12:00 97.9 75 20 115/62 (79) 100 01/19/20 09:00 Nasal Cannula 2.0 01/19/20 08:00 97.9 100 22 160/79 (106) 100 01/19/20 08:00 68 01/19/20 04:00 99.3 65 23 155/88 (110) 99 01/19/20 04:00 76 01/19/20 00:00 73 01/19/20 00:00 98.9 73 20 146/75 (98) 100 01/18/20 21:00 Nasal Cannula 2.0 01/18/20 20:00 99.1 81 24 131/68 (89) 100 01/18/20 16:00 97.9 72 22 149/80 (103) 97 01/18/20 16:00 69 Intake and Output 01/18/20 01/19/20 19:00 07:00 Intake Total 780 ml 50 ml Output Total 450 ml Balance 780 ml -400 ml Intake Oral 180 ml 50 ml IV Total 600 ml Output Urine Total 450 ml # Voids 3 # Bowel Movements 1 1 Current Medications Medications (Trade) Dose Ordered Sig/Mily Route PRN Reason Start Time Stop Time Status Last Admin Dose Admin Acetaminophen (Tylenol) 325 mg Q4H PRN ORAL Mild Pain (Pain Scale 1-3) 01/14/20 20:30 02/13/20 20:29 Acetaminophen (Tylenol) 650 mg Q4H PRN ORAL Moderate Pain (Pain Scale 4-6) 01/14/20 20:30 02/13/20 20:29 Aspirin (Ecotrin) 81 mg DAILY ORAL 01/16/20 09:00 03/01/20 08:59 01/19/20 09:16 Dextrose 1,000 ml @ 50 mls/hr Q20H IV 01/19/20 10:30 02/18/20 10:29 01/19/20 10:30 Dextrose (Dextrose 50%) 25 ml Q30M PRN IV Hypoglycemia 01/14/20 20:15 04/13/20 20:14 Dextrose (Dextrose 50%) 50 ml Q30M PRN IV Hypoglycemia 01/14/20 20:15 04/13/20 20:14 Donepezil HCl (Aricept) 10 mg DAILY ORAL 01/15/20 09:00 02/14/20 08:59 01/19/20 09:16 Finasteride (Proscar) 5 mg QHS ORAL 01/14/20 21:00 04/13/20 20:59 01/18/20 20:58 Insulin Aspart (NovoLOG) BEFORE MEALS AND HS SUBQ 01/14/20 21:00 04/13/20 20:59 01/19/20 12:07 Medroxyprogesterone Acetate (Provera) 10 mg DAILY ORAL 01/15/20 09:00 04/14/20 08:59 01/19/20 09:16 Memantine (Namenda) 5 mg TWICE A DAY ORAL 01/15/20 09:00 02/14/20 08:59 01/19/20 09:16 Pantoprazole (Protonix) 40 mg BID ORAL 01/15/20 18:00 02/14/20 10:59 01/19/20 09:16 Piperacillin Sod/ Tazobactam Sod 3.375 gm/Sodium Chloride 110 ml @ 27.5 mls/hr Q8HR IVPB 01/14/20 22:00 01/21/20 21:59 01/18/20 21:42 Potassium Phosphate 250 ml @ 62.5 mls/hr Q4H IVPB 01/19/20 12:00 01/19/20 19:59 01/19/20 12:06 Sodium Chloride 500 ml @ 999 mls/hr Q31M PRN IV For hypotension 01/17/20 00:00 02/16/20 00:00 Laboratory Tests 01/18/20 16:21: POC Whole Blood Glucose 162H 01/18/20 20:42: POC Whole Blood Glucose 208H 01/19/20 06:15: POC Whole Blood Glucose 155H 01/19/20 07:30: White Blood Count 8.2, Red Blood Count 3.80L, Hemoglobin 11.9L, Hematocrit 33.5L , Mean Corpuscular Volume 88, Mean Corpuscular Hemoglobin 31.2H, Mean Corpuscular Hemoglobin Concent 35.4, Red Cell Distribution Width 13.6, Platelet Count 144L, Mean Platelet Volume 6.8, Neutrophils (%) (Auto) 63.0, Lymphocytes (%) (Auto) 28.4, Monocytes (%) (Auto) 5.8, Eosinophils (%) (Auto) 2.1, Basophils (%) (Auto) 0.7, Sodium Level 151H, Potassium Level 3.0L, Chloride Level 120H, Carbon Dioxide Level 20L, Anion Gap 11, Blood Urea Nitrogen 17, Creatinine 1.2, Estimat Glomerular Filtration Rate 57.7, Glucose Level 163H, Calcium Level 8.2L, Phosphorus Level 2.2L, Magnesium Level 2.1, Total Bilirubin 0.8, Aspartate Amino Transf (AST/SGOT) 28, Alanine Aminotransferase (ALT/SGPT) 20, Alkaline Phosphatase 95, Total Creatine Kinase 248, C-Reactive Protein, Quantitative 2.5H , Pro-B-Type Natriuretic Peptide 2021H, Total Protein 6.4, Albumin 2.6L, Globulin 3.8, Albumin/Globulin Ratio 0.7L 01/19/20 11:48: POC Whole Blood Glucose 190H Height (Feet): 5 Height (Inches): 7.00 Weight (Pounds): 161 General Appearance: no apparent distress Cardiovascular: normal rate Respiratory/Chest: decreased breath sounds Abdomen: distended Phuc Allen MD Jan 19, 2020 14:32
[2020-01-19 16:00] VITALS: BP 148/82
--- NOTE | 2020-01-19 19:10 | NUR ---
NURSE HAND-OFF REPORT: Important Events on Shift:[Potassium infusion due to hypokalemia] Patient Status: [DNR and stable] Diet: [Regular pureed nectar thick liquids] Pending Orders: [N/A] Pending Results/Labs:[N/A] Pending MD notification:[N/A] Latest Vital Signs: Temperature 96.6 , Pulse 104 , B/P 148 /82 , Respiratory Rate 20 , O2 SAT 100 , Nasal Cannula, O2 Flow Rate 2.0 . Vital Sign Comment: [] EKG Rhythm: Sinus Rhythm Rhythm change?: N MD Notified?: N -Dr. Vu KESSLER Response: Latest Eric Fall Score: 70 Fall Risk: High Risk Safety Measures: Call light Within Reach, Bed Alarm Zone 1, Side Rails Side Rails x3, Bed position Low and Locked. Fall Precautions: Yellow Socks Yellow Gown Patient Fall Education Report given to [TIM marte].
--- NOTE | 2020-01-19 19:20 | NUR ---
NURSE NOTES: Pt received from TIM Valdovinos. Pt is resting comfortably in bed and shows no signs of pain. Pt is nonverbal, opens eyes to sound, and on bedrest due to weakness. Pt in on cardiac monitoring ST and asymptomatic; aware. Pt has NC 2LPM breathing unlabored. Pt has condom catheter patent and draining well to gravity. Pt has YAEL 24G and LHand 20G patent with skin dry and intact. Bed is locked in lowest position and call light is within reach. Will continue to monitor.
[2020-01-19 20:00] VITALS: BP 147/89
--- NOTE | 2020-01-19 23:07 | Psychiatric Progress Note ---
Psychiatry Progress Note Psychiatry Progress Note Medications Current Medications Medications (Trade) Dose Ordered Sig/Mily Route PRN Reason Start Time Stop Time Status Last Admin Dose Admin Acetaminophen (Tylenol) 325 mg Q4H PRN ORAL Mild Pain (Pain Scale 1-3) 01/14/20 20:30 02/13/20 20:29 Acetaminophen (Tylenol) 650 mg Q4H PRN ORAL Moderate Pain (Pain Scale 4-6) 01/14/20 20:30 02/13/20 20:29 Aspirin (Ecotrin) 81 mg DAILY ORAL 01/16/20 09:00 03/01/20 08:59 01/19/20 09:16 Dextrose 1,000 ml @ 50 mls/hr Q20H IV 01/19/20 10:30 02/18/20 10:29 01/19/20 10:30 Dextrose (Dextrose 50%) 25 ml Q30M PRN IV Hypoglycemia 01/14/20 20:15 04/13/20 20:14 Dextrose (Dextrose 50%) 50 ml Q30M PRN IV Hypoglycemia 01/14/20 20:15 04/13/20 20:14 Donepezil HCl (Aricept) 10 mg DAILY ORAL 01/15/20 09:00 02/14/20 08:59 01/19/20 09:16 Finasteride (Proscar) 5 mg QHS ORAL 01/14/20 21:00 04/13/20 20:59 01/19/20 20:49 Insulin Aspart (NovoLOG) BEFORE MEALS AND HS SUBQ 01/14/20 21:00 04/13/20 20:59 01/19/20 20:52 Medroxyprogesterone Acetate (Provera) 10 mg DAILY ORAL 01/15/20 09:00 04/14/20 08:59 01/19/20 09:16 Memantine (Namenda) 5 mg TWICE A DAY ORAL 01/15/20 09:00 02/14/20 08:59 01/19/20 17:30 Pantoprazole (Protonix) 40 mg BID ORAL 01/15/20 18:00 02/14/20 10:59 01/19/20 17:30 Piperacillin Sod/ Tazobactam Sod 3.375 gm/Sodium Chloride 110 ml @ 27.5 mls/hr Q8HR IVPB 01/14/20 22:00 01/21/20 21:59 01/19/20 14:48 Sodium Chloride 500 ml @ 999 mls/hr Q31M PRN IV For hypotension 01/17/20 00:00 02/16/20 00:00 Neurological/Psychiatric: Reports: anxiety, depressed, emotional problems Allergies: Coded Allergies: No Known Allergies (Verified , 08/20/09) Objective Data Height (Feet): 5 Height (Inches): 7.00 Weight (Pounds): 161 General Appearance: no apparent distress Additional Comments: MENTAL STATUS EXAMINATION: Patient is alert and oriented times self. Mood is anxious. Affect is blunted. Congruent with mood. Thought process is concrete. Thought content, no suicidal or homicidal ideation. Cognition is impaired. Insight and judgment are impaired. Assessment/Plan Assessment/Plan: ASSESSMENT: Se[place] I Acute toxic encephalopathy. Seaton II Deferred. Seaton III As above. Seaton IV Low. Seaton V 20. PLAN: 1. We will start the patient on low dose of antipsychotics. 2. Provide the patient with reality orientation and supportive therapy. Kaya Lagos MD Jan 19, 2020 23:07
[2020-01-20] VITALS: BP 150/82
[2020-01-20 04:00] VITALS: BP 143/94
[2020-01-20] MEDS: Piperacillin/Tazobactam 3.375 GM in NS 110 ML IVPB SCH (06:24)
[2020-01-20] MEDS: NovoLOG Insulin Flexpen SUBQ SCH ×4 (06:25→20:37)
--- NOTE | 2020-01-20 07:20 | NUR ---
NURSE HAND-OFF REPORT: Important Events on Shift:Pt received scheduled medications Patient Status: Stable Diet: Regular Puree [place] Thick Pending Orders: Pending Results/Labs:AM Labs Pending MD notification: Latest Vital Signs: Temperature 98.6 , Pulse 85 , B/P 143 /94 , Respiratory Rate 20 , O2 SAT 95 , Nasal Cannula, O2 Flow Rate 2.0 . Vital Sign Comment: VSS EKG Rhythm: Sinus Rhythm Rhythm change?: N MD Notified?: N -Dr. Vu KESSLER Response: Latest Eric Fall Score: 70 Fall Risk: High Risk Safety Measures: Call light Within Reach, Bed Alarm Zone 1, Side Rails Side Rails x3, Bed position Low and Locked. Fall Precautions: Yellow Socks Yellow Gown Patient Fall Education Report given to TIM Elaine.
[2020-01-20 08:00] VITALS: BP 143/84
--- NOTE | 2020-01-20 08:18 | General Progress Note ---
Subjective ROS Limited/Unobtainable: Yes Allergies: Coded Allergies: No Known Allergies (Verified , 08/20/09) Subjective no distress still with elevated sodium - repeat today pending renal noted Objective Last 24 Hour Vital Signs Date Time Temp Pulse Resp B/P (MAP) Pulse Ox O2 Delivery O2 Flow Rate FiO2 01/20/20 04:00 98.6 85 20 143/94 (110) 95 01/20/20 04:00 74 01/20/20 00:00 98.6 82 18 150/82 (104) 99 01/20/20 00:00 78 01/19/20 21:00 Nasal Cannula 2.0 01/19/20 20:00 76 01/19/20 20:00 98.8 82 20 147/89 (108) 93 01/19/20 16:00 96.6 104 20 148/82 (104) 100 01/19/20 16:00 70 01/19/20 12:00 72 01/19/20 12:00 97.9 75 20 115/62 (79) 100 01/19/20 09:00 Nasal Cannula 2.0 Intake and Output 01/19/20 01/20/20 19:00 07:00 Intake Total 435 ml 75 ml Output Total 500 ml 500 ml Balance -65 ml -425 ml Intake Oral 85 ml 75 ml IV Total 350 ml Output Urine Total 500 ml 500 ml # Bowel Movements 1 1 Laboratory Tests 01/19/20 11:48: POC Whole Blood Glucose 190H 01/19/20 16:59: POC Whole Blood Glucose 136H Height (Feet): 5 Height (Inches): 7.00 Weight (Pounds): 161 Objective WDWN NAD clear breath sounds bilaterally without rhonchi or wheeze [id number] without MRG NABS nontender no HSM no CCE nonfocal altered Assessment/Plan Assessment/Plan: IMPRESSION: 1. Leukocytosis, likely sepsis. 2. Hypernatremia, likely prerenal. 3. End-stage renal disease. 4. Diabetes, out of control. 5. Evidence of coronary artery disease and non-STEMI. 6. Lactic acidemia. 7. toxic met encephalopathy 8. dementia RECOMMENDATIONS: Do Not Resuscitate. appreciate Renal, noted Cardiology and ID. IV hydration for now and noted antibiotics. aspirin only usp medicine, Zosyn. Follow up laboratories data. dc planning once cleared by all and lytes improved psych for behavioral management impression, plan, and exam edited and reviewed in detail care discussed with Sebastian Khalil MD Jan 20, 2020 08:18
[2020-01-20] MEDS: Aspirin EC 81mg tab ORAL SCH (08:41)
[2020-01-20] MEDS: medroxyPROGESTERone 10mg tab ORAL SCH (08:41)
[2020-01-20] MEDS: Memantine 5 MG TAB ORAL SCH ×2 (08:41→18:26)
[2020-01-20] MEDS: Donepezil 10mg tab ORAL SCH (08:41)
--- NOTE | 2020-01-20 09:46 | Cardiac Electrophysiology PN ---
Assessment/Plan Assessment/Plan 1. Four elevated troponin, all more than 4. The EKG does not show any ST elevation; however, there is inferolateral T-wave inversion suggestive of ischemia. The elevated troponin may be partially due to the patient's renal failure and dehydration. Sodium is also 162 as well. The patient is nonverbal and is DNR. We will treat the patient medically. Off beta-kim in view of hypotension and bradycardia On aspirin . Off statin as CPK was more than 1000 2. Hypotension, improved. DCed midodrine as had junctional rhythm. Echocardiogram showed normal left ventricular systolic function. 3. Junctional rhythm at 40 while awake. DCed Midodrine. 4. Uncontrolled diabetes. 5. Sepsis. White count of 23,000, on antibiotics.Improved 6. ARF. BUN/cr 85/2.7 improved to 43/1.2 7. Severe hypernatremia, again on 02/11 NS, per Dr. Allen. Na still 151 8. UTI. 9. Failed swallow eval. DW RN Subjective Subjective All 4 troponins are flat and around 4 due to sepsis , renal failure and hypernatremia. Demented, DNR, nonverbal Not a cath candidate Had transient junctional rhythm down to 40s at 10.44 am on 01/16/20 On 2 liter nasal cannula. Failed swallow eval and not eating and no NGT On 02/11 NS at 75 cc/hr as NA still high. RN at bedside Objective Last 24 Hour Vital Signs Date Time Temp Pulse Resp B/P (MAP) Pulse Ox O2 Delivery O2 Flow Rate FiO2 01/20/20 08:00 98.4 80 20 143/84 (103) 9 01/20/20 04:00 98.6 85 20 143/94 (110) 95 01/20/20 04:00 74 01/20/20 00:00 98.6 82 18 150/82 (104) 99 01/20/20 00:00 78 01/19/20 21:00 Nasal Cannula 2.0 01/19/20 20:00 76 01/19/20 20:00 98.8 82 20 147/89 (108) 93 01/19/20 16:00 96.6 104 20 148/82 (104) 100 01/19/20 16:00 70 01/19/20 12:00 72 01/19/20 12:00 97.9 75 20 115/62 (79) 100 Intake and Output 01/19/20 01/20/20 19:00 07:00 Intake Total 435 ml 75 ml Output Total 500 ml 500 ml Balance -65 ml -425 ml Intake Oral 85 ml 75 ml IV Total 350 ml Output Urine Total 500 ml 500 ml # Bowel Movements 1 1 Laboratory Tests Test 01/19/20 11:48 01/19/20 16:59 POC Whole Blood Glucose 190 MG/DL (74-106) H 136 MG/DL (74-106) H Objective HEAD AND NECK: No JVD. LUNGS: Coarse rhonchi. CARDIOVASCULAR: Regular S1 and S2 with no gallop or murmur. ABDOMEN: Soft. EXTREMITIES: No pitting edema. Jose Womack MD Jan 20, 2020 09:46
--- NOTE | 2020-01-20 09:53 | Infectious Diseases Prog Note ---
Assessment/Plan Assessment/Plan A: 1. Urinary tract infection treated 2. Leukocytosis resolved 3. Hyperglycemia. 4. Benign prostatic hypertrophy. 5. Renal failure, 6. 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 Discontinue Zosyn 3. Observe off antibiotic Subjective ROS Limited/Unobtainable: Yes Allergies: Coded Allergies: No Known Allergies (Verified , 08/20/09) Objective Last 24 Hour Vital Signs Date Time Temp Pulse Resp B/P (MAP) Pulse Ox O2 Delivery O2 Flow Rate FiO2 01/20/20 08:00 98.4 80 20 143/84 (103) 9 01/20/20 04:00 98.6 85 20 143/94 (110) 95 01/20/20 04:00 74 01/20/20 00:00 98.6 82 18 150/82 (104) 99 01/20/20 00:00 78 01/19/20 21:00 Nasal Cannula 2.0 01/19/20 20:00 76 01/19/20 20:00 98.8 82 20 147/89 (108) 93 01/19/20 16:00 96.6 104 20 148/82 (104) 100 01/19/20 16:00 70 01/19/20 12:00 72 01/19/20 12:00 97.9 75 20 115/62 (79) 100 Height (Feet): 5 Height (Inches): 7.00 Weight (Pounds): 161 General Appearance: no acute distress HEENT: mucous membranes moist Respiratory/Chest: lungs clear, other - oxygen by nasal cannula Cardiovascular: normal rate Abdomen: soft, non tender Extremities: other - hands edema Neurologic/Psychiatric: other - sleeping Laboratory Tests Test 01/19/20 11:48 01/19/20 16:59 POC Whole Blood Glucose 190 MG/DL (74-106) H 136 MG/DL (74-106) H Current Medications Medications (Trade) Dose Ordered Sig/Mily Route PRN Reason Start Time Stop Time Status Last Admin Dose Admin Acetaminophen (Tylenol) 325 mg Q4H PRN ORAL Mild Pain (Pain Scale 1-3) 01/14/20 20:30 02/13/20 20:29 Acetaminophen (Tylenol) 650 mg Q4H PRN ORAL Moderate Pain (Pain Scale 4-6) 01/14/20 20:30 02/13/20 20:29 Aspirin (Ecotrin) 81 mg DAILY ORAL 01/16/20 09:00 03/01/20 08:59 01/20/20 08:41 Dextrose 1,000 ml @ 50 mls/hr Q20H IV 01/19/20 10:30 02/18/20 10:29 01/20/20 06:24 Dextrose (Dextrose 50%) 25 ml Q30M PRN IV Hypoglycemia 01/14/20 20:15 04/13/20 20:14 Dextrose (Dextrose 50%) 50 ml Q30M PRN IV Hypoglycemia 01/14/20 20:15 04/13/20 20:14 Donepezil HCl (Aricept) 10 mg DAILY ORAL 01/15/20 09:00 02/14/20 08:59 01/20/20 08:41 Finasteride (Proscar) 5 mg QHS ORAL 01/14/20 21:00 04/13/20 20:59 01/19/20 20:49 Insulin Aspart (NovoLOG) BEFORE MEALS AND HS SUBQ 01/14/20 21:00 04/13/20 20:59 01/20/20 06:25 Medroxyprogesterone Acetate (Provera) 10 mg DAILY ORAL 01/15/20 09:00 04/14/20 08:59 01/20/20 08:41 Memantine (Namenda) 5 mg TWICE A DAY ORAL 01/15/20 09:00 02/14/20 08:59 01/20/20 08:41 Pantoprazole (Protonix) 40 mg BID ORAL 01/15/20 18:00 02/14/20 10:59 01/20/20 08:41 Piperacillin Sod/ Tazobactam Sod 3.375 gm/Sodium Chloride 110 ml @ 27.5 mls/hr Q8HR IVPB 01/14/20 22:00 01/21/20 21:59 01/20/20 06:24 Sodium Chloride 500 ml @ 999 mls/hr Q31M PRN IV For hypotension 01/17/20 00:00 02/16/20 00:00 Von Cunningham MD Jan 20, 2020 09:53
[2020-01-20 11:03] LABS: BASOPHILS % (AUTO) 0.8 % (0.0-2.0); EOSINOPHILS % (AUTO) 2.9 % (0.0-3.0); HEMATOCRIT 30.4 % (42.0-52.0); HEMOGLOBIN 11.1 G/DL (14.2-18.0); LYMPHOCYTES % (AUTO) 27.8 % (20.0-45.0); MEAN CORPUSCULAR VOLUME 85 FL (80-99); MONOCYTES % (AUTO) 5.9 % (1.0-10.0); NEUTROPHILS % (AUTO) 62.7 % (45.0-75.0); PLATELET COUNT 152 K/UL (150-450); RED BLOOD COUNT 3.57 M/UL (4.70-6.10); RED CELL DISTRIBUTION WIDTH 12.7 % (11.6-14.8); WHITE BLOOD COUNT 8.9 K/UL (4.8-10.8)
[2020-01-20 11:31] LABS: ANION GAP 12 mmol/L (5-15); CALCIUM 7.9 MG/DL (8.5-10.1); CARBON DIOXIDE 18 MMOL/L (21-32); CHLORIDE 117 MMOL/L (98-107); CREATININE 1.1 MG/DL (0.55-1.30); POTASSIUM 3.1 MMOL/L (3.5-5.1); SODIUM 147 MMOL/L (136-145)
[2020-01-20 12:00] VITALS: BP 116/58
[2020-01-20 12:15] LABS: ALANINE AMINOTRANSFERASE 30 U/L (12-78); ALBUMIN 2.4 G/DL (3.4-5.0); ALKALINE PHOSPHATASE 85 U/L (46-116); ASPARTATE AMINO TRANSFERASE 27 U/L (15-37); BILIRUBIN,DIRECT 0.1 MG/DL (0.0-0.3); BILIRUBIN,TOTAL 0.6 MG/DL (0.2-1.0); BLOOD UREA NITROGEN 12 mg/dL (7-18); PHOSPHORUS 2.2 MG/DL (2.5-4.9)
--- NOTE | 2020-01-20 13:15 | Nephrology Progress Note ---
Assessment/Plan Problem List: (1) Renal failure (ARF), acute on chronic (2) BPH (benign prostatic hyperplasia) (3) AMS (altered mental status) (4) Sepsis (5) Hyperglycemia (6) Elevated troponin (7) UTI (urinary tract infection) (8) Hypernatremia Assessment Patient admitted with altered mental status and sepsis. From renal standpoint to view the chemistry panel suggestive of dehydration and mainly prerenal acidemia. The ER doctor states that the patient has end-stage renal disease on hemodialysis however no fistula and no permacath was detected upon examination of the patient Hyperglycemia Evidence of UTI Hypernatremia Elevated troponin Plan January 19: Labs reviewed. Abnormal electrolyte noted and addressed. Continue per current management. January 18: Labs reviewed. Abnormal electrolytes noted and addressed per orders. January 17: No CHEM panel drawn today. Patient continues to be on IV fluid. Will check labs electrolytes and CPK in a.m. January 16: Lab reviewed. Serum creatinine lower. Serum sodium lowering. CPK lowering. Continue slow hydration. Continue per consultants. January 15: Labs reviewed. Electrolyte within normal range. Serum sodium low ering. Serum creatinine lowering. CPK remains elevated. Cholesterol-lowering agent discontinued. Continue to monitor renal parameters and electrolytes. Serum troponin up over 4. Per orders. Will check lipid panel. Continue per consultants. January 14: Half-normal saline 100 cc an hour Urine for spot sodium, urine for eosinophils Monitor renal parameters Keep the blood sugar in check Fluid challenge, hemodynamic support Avoid nephrotoxic's Per orders Subjective ROS Limited/Unobtainable: No Constitutional: Reports: malaise, weakness Objective Objective Last 24 Hour Vital Signs Date Time Temp Pulse Resp B/P (MAP) Pulse Ox O2 Delivery O2 Flow Rate FiO2 01/20/20 12:00 70 01/20/20 12:00 97.9 84 20 116/58 (77) 100 01/20/20 09:00 Nasal Cannula 2.0 01/20/20 08:00 98.4 80 20 143/84 (103) 99 01/20/20 08:00 65 01/20/20 04:00 98.6 85 20 143/94 (110) 95 01/20/20 04:00 74 01/20/20 00:00 98.6 82 18 150/82 (104) 99 01/20/20 00:00 78 01/19/20 21:00 Nasal Cannula 2.0 01/19/20 20:00 76 01/19/20 20:00 98.8 82 20 147/89 (108) 93 01/19/20 16:00 96.6 104 20 148/82 (104) 100 01/19/20 16:00 70 Intake and Output 01/19/20 01/20/20 19:00 07:00 Intake Total 435 ml 75 ml Output Total 500 ml 500 ml Balance -65 ml -425 ml Intake Oral 85 ml 75 ml IV Total 350 ml Output Urine Total 500 ml 500 ml # Bowel Movements 1 1 Current Medications Medications (Trade) Dose Ordered Sig/Mily Route PRN Reason Start Time Stop Time Status Last Admin Dose Admin Acetaminophen (Tylenol) 325 mg Q4H PRN ORAL Mild Pain (Pain Scale 1-3) 01/14/20 20:30 02/13/20 20:29 Acetaminophen (Tylenol) 650 mg Q4H PRN ORAL Moderate Pain (Pain Scale 4-6) 01/14/20 20:30 02/13/20 20:29 Aspirin (Ecotrin) 81 mg DAILY ORAL 01/16/20 09:00 03/01/20 08:59 01/20/20 08:41 Dextrose 1,000 ml @ 50 mls/hr Q20H IV 01/19/20 10:30 02/18/20 10:29 01/20/20 06:24 Dextrose (Dextrose 50%) 25 ml Q30M PRN IV Hypoglycemia 01/14/20 20:15 04/13/20 20:14 Dextrose (Dextrose 50%) 50 ml Q30M PRN IV Hypoglycemia 01/14/20 20:15 04/13/20 20:14 Donepezil HCl (Aricept) 10 mg DAILY ORAL 01/15/20 09:00 02/14/20 08:59 01/20/20 08:41 Finasteride (Proscar) 5 mg QHS ORAL 01/14/20 21:00 04/13/20 20:59 01/19/20 20:49 Insulin Aspart (NovoLOG) BEFORE MEALS AND HS SUBQ 01/14/20 21:00 04/13/20 20:59 01/20/20 12:22 Medroxyprogesterone Acetate (Provera) 10 mg DAILY ORAL 01/15/20 09:00 04/14/20 08:59 01/20/20 08:41 Memantine (Namenda) 5 mg TWICE A DAY ORAL 01/15/20 09:00 02/14/20 08:59 01/20/20 08:41 Pantoprazole (Protonix) 40 mg BID ORAL 01/15/20 18:00 02/14/20 10:59 01/20/20 08:41 Potassium Phosphate 20 mm/ Sodium Chloride 281.6667 ml @ 46.944 m... ONCE ONCE IV 01/20/20 13:15 01/20/20 19:14 UNV Potassium Chloride 100 ml @ 50 mls/hr ONCE ONCE IVPB 01/20/20 13:15 01/20/20 15:14 UNV Sodium Chloride 500 ml @ 999 mls/hr Q31M PRN IV For hypotension 01/17/20 00:00 02/16/20 00:00 Laboratory Tests 01/19/20 16:59: POC Whole Blood Glucose 136H 01/20/20 10:55: White Blood Count 8.9, Red Blood Count 3.57L, Hemoglobin 11.1L, Hematocrit 30.4L , Mean Corpuscular Volume 85, Mean Corpuscular Hemoglobin 31.0, Mean Corpuscular Hemoglobin Concent 36.4H, Red Cell Distribution Width 12.7, Platelet Count 152, Mean Platelet Volume 6.8, Neutrophils (%) (Auto) 62.7, Lymphocytes (%) (Auto) 27.8, Monocytes (%) (Auto) 5.9, Eosinophils (%) (Auto) 2.9, Basophils (%) (Auto) 0.8, Sodium Level 147H, Potassium Level 3.1L, Chloride Level 117H, Carbon Dioxide Level 18L, Anion Gap 12, Blood Urea Nitrogen 12, Creatinine 1.1, Estimat Glomerular Filtration Rate > 60, Glucose Level 224H, Calcium Level 7.9L, Phosphorus Level 2.2L, Magnesium Level 1.8, Total Bilirubin 0.6, Direct Bilirubin 0.1, Aspartate Amino Transf (AST/SGOT) 27, Alanine Aminotransferase (ALT/SGPT) 30, Alkaline Phosphatase 85, Total Protein 6.2L, Albumin 2.4L Height (Feet): 5 Height (Inches): 7.00 Weight (Pounds): 161 General Appearance: no apparent distress, lethargic Cardiovascular: normal rate Respiratory/Chest: decreased breath sounds Abdomen: soft Fouladian,Phuc MD Jan 20, 2020 13:15
[2020-01-20 16:00] VITALS: BP 143/78
[2020-01-20] MEDS ORDERED: Potassium Phosphate 20 MM in NS 275 ML IV ONE (16:00)
--- NOTE | 2020-01-20 19:40 | NUR ---
NURSE NOTES: Pt received from TIM Medina. Pt is resting comfortably in bed and shows no signs of pain. Pt is A/Ox1 and nonverbal; pt is bedbound due to weakness. Pt has cardiac monitoring SR and asymptomatic. Pt has NC 2LPM breathing unlabored and asymptomatic. Pt has YAEL 24G and LHand 20G both patent with skin dry and intact. Bed is locked and in lowest position with call light within reach. Will continue to monitor.
[2020-01-20 20:00] VITALS: BP 130/67
--- NOTE | 2020-01-20 20:01 | NUR ---
NURSE HAND-OFF REPORT: Important Events on Shift: potassium-3.1 Replacement of 60meq. Patient Status: Stable, improving. Diet: Regular pureed with nectar thick liquids, crush meds. Appetite improved greatly. Pending Orders: am labs, CBC, CMP, Mg., Phos., Pending Results/Labs:N/A Pending MD notification:N/A Latest Vital Signs: Temperature 98.1 , Pulse 83 , B/P 143 /78 , Respiratory Rate 20 , O2 SAT 100 , Nasal Cannula, O2 Flow Rate 2.0 . Vital Sign Comment: Stable, patient removes nasal cannula and saturating at 100 percent. EKG Rhythm: Sinus Rhythm Rhythm change?: N MD Notified?: N -Dr. Vu KESSLER Response: Latest Eric Fall Score: 70 Fall Risk: High Risk Safety Measures: Call light Within Reach, Bed Alarm Zone 1, Side Rails Side Rails x3, Bed position Low and Locked. Fall Precautions: Yellow Socks Yellow Gown Patient Fall Education Report given to Richard Martinez RN.
[2020-01-21] VITALS: BP 105/81
[2020-01-21 04:00] VITALS: BP 126/76
[2020-01-21 04:45] LABS: BASOPHILS % (AUTO) 1.1 % (0.0-2.0); EOSINOPHILS % (AUTO) 3.5 % (0.0-3.0); HEMATOCRIT 28.9 % (42.0-52.0); HEMOGLOBIN 10.9 G/DL (14.2-18.0); MEAN CORPUSCULAR VOLUME 83 FL (80-99); MONOCYTES % (AUTO) 7.2 % (1.0-10.0); NEUTROPHILS % (AUTO) 50.2 % (45.0-75.0); PLATELET COUNT 175 K/UL (150-450); RED BLOOD COUNT 3.49 M/UL (4.70-6.10); RED CELL DISTRIBUTION WIDTH 13.4 % (11.6-14.8); WHITE BLOOD COUNT 9.1 K/UL (4.8-10.8)
[2020-01-21 05:17] LABS: ALANINE AMINOTRANSFERASE 30 U/L (12-78); ALBUMIN 2.4 G/DL (3.4-5.0); ALBUMIN/GLOBULIN RATIO 0.6 (1.0-2.7); ALKALINE PHOSPHATASE 85 U/L (46-116); ANION GAP 9 mmol/L (5-15); ASPARTATE AMINO TRANSFERASE 24 U/L (15-37); BILIRUBIN,TOTAL 0.6 MG/DL (0.2-1.0); BLOOD UREA NITROGEN 8 mg/dL (7-18); CARBON DIOXIDE 21 MMOL/L (21-32); CHLORIDE 115 MMOL/L (98-107); CREATININE 0.9 MG/DL (0.55-1.30); PHOSPHORUS 2.6 MG/DL (2.5-4.9); POTASSIUM 3.3 MMOL/L (3.5-5.1); SODIUM 145 MMOL/L (136-145)
[2020-01-21] MEDS: NovoLOG Insulin Flexpen SUBQ SCH ×2 (06:30→11:58)
--- NOTE | 2020-01-21 07:57 | NUR ---
NURSE NOTES: Pt received from Rafael DMUONT. Pt in bed sleeping. Bed low and locked, call light within reach. No distress noted.
[2020-01-21 08:00] VITALS: BP 136/83
[2020-01-21] MEDS: Aspirin EC 81mg tab ORAL SCH (09:01)
[2020-01-21] MEDS: Memantine 5 MG TAB ORAL SCH (09:01)
[2020-01-21] MEDS: Donepezil 10mg tab ORAL SCH (09:01)
[2020-01-21] MEDS: medroxyPROGESTERone 10mg tab ORAL SCH (09:01)
--- NOTE | 2020-01-21 09:23 | NUR ---
NURSE NOTES: Pantoprozole held because i cant crush and pt can not swallow whole. Will ask Dr. Romero to change to IV.
[2020-01-21] MEDS ORDERED: 1/2 NS 1000ml IV ONE (10:01)
--- NOTE | 2020-01-21 10:06 | NUR ---
DISCHARGE PLANNING CLINICALS HAVE BEEN FAXED TO [facility] T: [phone] F; [phone] COVID SWAB ORDERED
--- NOTE | 2020-01-21 10:19 | General Progress Note ---
Subjective Allergies: Coded Allergies: No Known Allergies (Verified , 08/20/09) Subjective no distress still with elevated sodium - repeat today pending renal noted Objective Last 24 Hour Vital Signs Date Time Temp Pulse Resp B/P (MAP) Pulse Ox O2 Delivery O2 Flow Rate FiO2 01/21/20 09:00 Nasal Cannula 2.0 01/21/20 08:00 97.7 72 20 136/83 (100) 98 01/21/20 08:00 64 01/21/20 04:00 98.7 75 20 126/76 (93) 100 01/21/20 04:00 68 01/21/20 00:00 78 01/21/20 00:00 97.9 72 20 105/81 (89) 100 01/20/20 21:00 Nasal Cannula 2.0 01/20/20 20:00 70 01/20/20 20:00 98.5 79 20 130/67 (88) 99 01/20/20 16:00 98.1 88 20 143/78 (99) 100 01/20/20 16:00 83 01/20/20 12:00 70 01/20/20 12:00 97.9 84 20 116/58 (77) 100 Intake and Output 01/20/20 01/21/20 19:00 07:00 Intake Total 1620.444 ml 600 ml Output Total 350 ml Balance 1270.444 ml 600 ml Intake Oral 640 ml 600 ml IV Total 980.444 ml Output Urine Total 350 ml # Bowel Movements 1 Laboratory Tests 01/20/20 10:55: White Blood Count 8.9, Red Blood Count 3.57L, Hemoglobin 11.1L, Hematocrit 30.4L , Mean Corpuscular Volume 85, Mean Corpuscular Hemoglobin 31.0, Mean Corpuscular Hemoglobin Concent 36.4H, Red Cell Distribution Width 12.7, Platelet Count 152, Mean Platelet Volume 6.8, Neutrophils (%) (Auto) 62.7, Lymphocytes (%) (Auto) 27.8, Monocytes (%) (Auto) 5.9, Eosinophils (%) (Auto) 2.9, Basophils (%) (Auto) 0.8, Sodium Level 147H, Potassium Level 3.1L, Chloride Level 117H, Carbon Dioxide Level 18L, Anion Gap 12, Blood Urea Nitrogen 12, Creatinine 1.1, Estimat Glomerular Filtration Rate > 60, Glucose Level 224H, Calcium Level 7.9L, Phosphorus Level 2.2L, Magnesium Level 1.8, Total Bilirubin 0.6, Direct Bilirubin 0.1, Aspartate Amino Transf (AST/SGOT) 27, Alanine Aminotransferase (ALT/SGPT) 30, Alkaline Phosphatase 85, Total Protein 6.2L, Albumin 2.4L 01/21/20 04:24: White Blood Count 9.1, Red Blood Count 3.49L, Hemoglobin 10.9L, Hematocrit 28.9L , Mean Corpuscular Volume 83, Mean Corpuscular Hemoglobin 31.1H, Mean Corpuscular Hemoglobin Concent 37.6H, Red Cell Distribution Width 13.4, Platelet Count 175, Mean Platelet Volume 7.2, Neutrophils (%) (Auto) 50.2, Lymphocytes (%) (Auto) 38.0, Monocytes (%) (Auto) 7.2, Eosinophils (%) (Auto) 3.5H, Basophils (%) (Auto) 1.1, Sodium Level 145, Potassium Level 3.3L, Chloride Level 115H, Carbon Dioxide Level 21, Anion Gap 9, Blood Urea Nitrogen 8, Creatinine 0.9, Estimat Glomerular Filtration Rate > 60, Glucose Level 128H, Calcium Level 8.0L, Phosphorus Level 2.6, Magnesium Level 1.8, Total Bilirubin 0.6, Aspartate Amino Transf (AST/SGOT) 24, Alanine Aminotransferase (ALT/SGPT) 30, Alkaline Phosphatase 85, Total Protein 6.2L, Albumin 2.4L, Globulin 3.8, Albumin/Globulin Ratio 0.6L 01/21/20 06:02: POC Whole Blood Glucose 135H Height (Feet): 5 Height (Inches): 7.00 Weight (Pounds): 161 Objective WDWN NAD clear breath sounds bilaterally without rhonchi or wheeze [id number] without MRG NABS nontender no HSM no CCE nonfocal altered Assessment/Plan Assessment/Plan: IMPRESSION: 1. Leukocytosis, likely sepsis. 2. Hypernatremia, likely prerenal. 3. End-stage renal disease. 4. Diabetes, out of control. 5. Evidence of coronary artery disease and non-STEMI. 6. Lactic acidemia. 7. toxic met encephalopathy 8. dementia RECOMMENDATIONS: Do Not Resuscitate. a overall stable dc to snf maintain hospital meds dc iv hydration replace K impression, plan, and exam edited and reviewed in detail care discussed with Sebastian Khalil MD Jan 21, 2020 10:19
--- NOTE | 2020-01-21 10:59 | Infectious Diseases Prog Note ---
Assessment/Plan Assessment/Plan antibiotics : none A 1. e.coli Urinary tract infection s/p rx 2. Leukocytosis resolved 3. Hyperglycemia. 4. Benign prostatic hypertrophy. 5. Renal failure, on dialysis. 6. left kidney stone P 1. continue off antibiotics 2. will follow up cultures Subjective ROS Limited/Unobtainable: Yes Allergies: Coded Allergies: No Known Allergies (Verified , 08/20/09) Objective Last 24 Hour Vital Signs Date Time Temp Pulse Resp B/P (MAP) Pulse Ox O2 Delivery O2 Flow Rate FiO2 01/21/20 09:00 Nasal Cannula 2.0 01/21/20 08:00 97.7 72 20 136/83 (100) 98 01/21/20 08:00 64 01/21/20 04:00 98.7 75 20 126/76 (93) 100 01/21/20 04:00 68 01/21/20 00:00 78 01/21/20 00:00 97.9 72 20 105/81 (89) 100 01/20/20 21:00 Nasal Cannula 2.0 01/20/20 20:00 70 01/20/20 20:00 98.5 79 20 130/67 (88) 99 01/20/20 16:00 98.1 88 20 143/78 (99) 100 01/20/20 16:00 83 01/20/20 12:00 70 01/20/20 12:00 97.9 84 20 116/58 (77) 100 Height (Feet): 5 Height (Inches): 7.00 Weight (Pounds): 161 Respiratory/Chest: lungs clear Cardiovascular: normal rate, regular rhythm, no gallop/murmur Abdomen: soft, non tender Extremities: no edema Laboratory Tests Test 01/21/20 04:24 01/21/20 06:02 White Blood Count 9.1 K/UL (4.8-10.8) Red Blood Count 3.49 M/UL (4.70-6.10) L Hemoglobin 10.9 G/DL (14.2-18.0) L Hematocrit 28.9 % (42.0-52.0) L Mean Corpuscular Volume 83 FL (80-99) Mean Corpuscular Hemoglobin 31.1 PG (27.0-31.0) H Mean Corpuscular Hemoglobin Concent 37.6 G/DL (32.0-36.0) H Red Cell Distribution Width 13.4 % (11.6-14.8) Platelet Count 175 K/UL (150-450) Mean Platelet Volume 7.2 FL (6.5-10.1) Neutrophils (%) (Auto) 50.2 % (45.0-75.0) Lymphocytes (%) (Auto) 38.0 % (20.0-45.0) Monocytes (%) (Auto) 7.2 % (1.0-10.0) Eosinophils (%) (Auto) 3.5 % (0.0-3.0) H Basophils (%) (Auto) 1.1 % (0.0-2.0) Sodium Level 145 MMOL/L (136-145) Potassium Level 3.3 MMOL/L (3.5-5.1) L Chloride Level 115 MMOL/L (98-107) H Carbon Dioxide Level 21 MMOL/L (21-32) Anion Gap 9 mmol/L (5-15) Blood Urea Nitrogen 8 mg/dL (7-18) Creatinine 0.9 MG/DL (0.55-1.30) Estimat Glomerular Filtration Rate > 60 mL/min (>60) Glucose Level 128 MG/DL (74-106) H Calcium Level 8.0 MG/DL (8.5-10.1) L Phosphorus Level 2.6 MG/DL (2.5-4.9) Magnesium Level 1.8 MG/DL (1.8-2.4) Total Bilirubin 0.6 MG/DL (0.2-1.0) Aspartate Amino Transf (AST/SGOT) 24 U/L (15-37) Alanine Aminotransferase (ALT/SGPT) 30 U/L (12-78) Alkaline Phosphatase 85 U/L (46-116) Total Protein 6.2 G/DL (6.4-8.2) L Albumin 2.4 G/DL (3.4-5.0) L Globulin 3.8 g/dL Albumin/Globulin Ratio 0.6 (1.0-2.7) L POC Whole Blood Glucose 135 MG/DL (74-106) H Current Medications Medications (Trade) Dose Ordered Sig/Mily Route PRN Reason Start Time Stop Time Status Last Admin Dose Admin Acetaminophen (Tylenol) 325 mg Q4H PRN ORAL Mild Pain (Pain Scale 1-3) 01/14/20 20:30 02/13/20 20:29 Acetaminophen (Tylenol) 650 mg Q4H PRN ORAL Moderate Pain (Pain Scale 4-6) 01/14/20 20:30 02/13/20 20:29 Aspirin (Ecotrin) 81 mg DAILY ORAL 01/16/20 09:00 03/01/20 08:59 01/21/20 09:01 Dextrose (Dextrose 50%) 25 ml Q30M PRN IV Hypoglycemia 01/14/20 20:15 04/13/20 20:14 Dextrose (Dextrose 50%) 50 ml Q30M PRN IV Hypoglycemia 01/14/20 20:15 04/13/20 20:14 Donepezil HCl (Aricept) 10 mg DAILY ORAL 01/15/20 09:00 02/14/20 08:59 01/21/20 09:01 Finasteride (Proscar) 5 mg QHS ORAL 01/14/20 21:00 04/13/20 20:59 01/20/20 20:36 Insulin Aspart (NovoLOG) BEFORE MEALS AND HS SUBQ 01/14/20 21:00 04/13/20 20:59 01/20/20 20:37 Lansoprazole (Prevacid) 30 mg BID ORAL 01/21/20 18:00 02/20/20 17:59 Medroxyprogesterone Acetate (Provera) 10 mg DAILY ORAL 01/15/20 09:00 04/14/20 08:59 01/21/20 09:01 Memantine (Namenda) 5 mg TWICE A DAY ORAL 01/15/20 09:00 02/14/20 08:59 01/21/20 09:01 Potassium Chloride 100 ml @ 100 mls/hr Q1H IVPB 01/21/20 09:00 01/21/20 10:59 01/21/20 10:30 Sodium Chloride 500 ml @ 999 mls/hr Q31M PRN IV For hypotension 01/17/20 00:00 02/16/20 00:00 Wendie Frias MD Jan 21, 2020 10:59
--- NOTE | 2020-01-21 11:10 | Nephrology Progress Note ---
Assessment/Plan Problem List: (1) Renal failure (ARF), acute on chronic (2) BPH (benign prostatic hyperplasia) (3) AMS (altered mental status) (4) Sepsis (5) Hyperglycemia (6) Elevated troponin (7) UTI (urinary tract infection) (8) Hypernatremia Assessment Patient admitted with altered mental status and sepsis. From renal standpoint to view the chemistry panel suggestive of dehydration and mainly prerenal acidemia. The ER doctor states that the patient has end-stage renal disease on hemodialysis however no fistula and no permacath was detected upon examination of the patient Hyperglycemia Evidence of UTI Hypernatremia Elevated troponin Plan January 20: Labs reviewed. Renal parameters stable. Continue per current management. Remains stable from renal standpoint of view. January 19: Labs reviewed. Abnormal electrolyte noted and addressed. Continue per current management. January 18: Labs reviewed. Abnormal electrolytes noted and addressed per orders. January 17: No CHEM panel drawn today. Patient continues to be on IV fluid. Will check labs electrolytes and CPK in a.m. January 16: Lab reviewed. Serum creatinine lower. Serum sodium lowering. CPK lowering. Continue slow hydration. Continue per consultants. January 15: Labs reviewed. Electrolyte within normal range. Serum sodium lowering. Serum creatinine lowering. CPK remains elevated. Cholesterol- lowering agent discontinued. Continue to monitor renal parameters and electrolytes. Serum troponin up over 4. Per orders. Will check lipid panel. Continue per consultants. January 14: Half-normal saline 100 cc an hour Urine for spot sodium, urine for eosinophils Monitor renal parameters Keep the blood sugar in check Fluid challenge, hemodynamic support Avoid nephrotoxic's Per orders Subjective ROS Limited/Unobtainable: No Constitutional: Reports: malaise Objective Objective Last 24 Hour Vital Signs Date Time Temp Pulse Resp B/P (MAP) Pulse Ox O2 Delivery O2 Flow Rate FiO2 01/21/20 09:00 Nasal Cannula 2.0 01/21/20 08:00 97.7 72 20 136/83 (100) 98 01/21/20 08:00 64 01/21/20 04:00 98.7 75 20 126/76 (93) 100 01/21/20 04:00 68 01/21/20 00:00 78 01/21/20 00:00 97.9 72 20 105/81 (89) 100 01/20/20 21:00 Nasal Cannula 2.0 01/20/20 20:00 70 01/20/20 20:00 98.5 79 20 130/67 (88) 99 01/20/20 16:00 98.1 88 20 143/78 (99) 100 01/20/20 16:00 83 01/20/20 12:00 70 01/20/20 12:00 97.9 84 20 116/58 (77) 100 Intake and Output 01/20/20 01/21/20 19:00 07:00 Intake Total 1620.444 ml 600 ml Output Total 350 ml Balance 1270.444 ml 600 ml Intake Oral 640 ml 600 ml IV Total 980.444 ml Output Urine Total 350 ml # Bowel Movements 1 Laboratory Tests 01/21/20 04:24: White Blood Count 9.1, Red Blood Count 3.49L, Hemoglobin 10.9L, Hematocrit 28.9L , Mean Corpuscular Volume 83, Mean Corpuscular Hemoglobin 31.1H, Mean Corpuscular Hemoglobin Concent 37.6H, Red Cell Distribution Width 13.4, Platelet Count 175, Mean Platelet Volume 7.2, Neutrophils (%) (Auto) 50.2, Lymphocytes (%) (Auto) 38.0, Monocytes (%) (Auto) 7.2, Eosinophils (%) (Auto) 3.5H, Basophils (%) (Auto) 1.1, Sodium Level 145, Potassium Level 3.3L, Chloride Level 115H, Carbon Dioxide Level 21, Anion Gap 9, Blood Urea Nitrogen 8, Creatinine 0.9, Estimat Glomerular Filtration Rate > 60, Glucose Level 128H, Calcium Level 8.0L, Phosphorus Level 2.6, Magnesium Level 1.8, Total Bilirubin 0.6, Aspartate Amino Transf (AST/SGOT) 24, Alanine Aminotransferase (ALT/SGPT) 30, Alkaline Phosphatase 85, Total Protein 6.2L, Albumin 2.4L, Globulin 3.8, Albumin/Globulin Ratio 0.6L 01/21/20 06:02: POC Whole Blood Glucose 135H Height (Feet): 5 Height (Inches): 7.00 Weight (Pounds): 161 General Appearance: no apparent distress Cardiovascular: normal rate Respiratory/Chest: lungs clear Abdomen: soft Objective No change Phuc Allen MD Jan 21, 2020 11:10
[2020-01-21 12:00] VITALS: BP 122/79
--- NOTE | 2020-01-21 12:23 | Cardiac Electrophysiology PN ---
Assessment/Plan Assessment/Plan 1. Four elevated troponin, all more than 4. The EKG does not show any ST elevation; however, there is inferolateral T-wave inversion suggestive of ischemia. The elevated troponin may be partially due to the patient's renal failure and dehydration. Sodium is also 162 as well. The patient is nonverbal and is DNR. We will treat the patient medically. Off beta-kim in view of hypotension and bradycardia On aspirin . Off statin as CPK was more than 1000 2. Hypotension, improved. DCed midodrine as had junctional rhythm. Echocardiogram showed normal left ventricular systolic function. 3. Junctional rhythm at 40 while awake. DCed Midodrine. 4. Uncontrolled diabetes. 5. Sepsis. White count of 23,000, on antibiotics.Improved 6. ARF. BUN/cr 85/2.7 now normalized 7. Severe hypernatremia, again on 02/11 NS, per Dr. Allen. 147 now 8. UTI. 9. Failed swallow eval. DW RN Subjective Subjective All 4 troponins are flat and around 4 due to sepsis , renal failure and hypernatremia. Demented, DNR, nonverbal Not a cath candidate Had transient junctional rhythm down to 40s at 10.44 am on 01/16/20 Failed swallow eval and not eating and no NGT On 02/11 NS at 75 cc/hr . RN at bedside Objective Last 24 Hour Vital Signs Date Time Temp Pulse Resp B/P (MAP) Pulse Ox O2 Delivery O2 Flow Rate FiO2 01/21/20 12:00 98.2 79 18 122/79 (93) 99 01/21/20 09:00 Nasal Cannula 2.0 01/21/20 08:00 97.7 72 20 136/83 (100) 98 01/21/20 08:00 64 01/21/20 04:00 98.7 75 20 126/76 (93) 100 01/21/20 04:00 68 01/21/20 00:00 78 01/21/20 00:00 97.9 72 20 105/81 (89) 100 01/20/20 21:00 Nasal Cannula 2.0 01/20/20 20:00 70 01/20/20 20:00 98.5 79 20 130/67 (88) 99 01/20/20 16:00 98.1 88 20 143/78 (99) 100 01/20/20 16:00 83 Intake and Output 01/20/20 01/21/20 19:00 07:00 Intake Total 1620.444 ml 600 ml Output Total 350 ml Balance 1270.444 ml 600 ml Intake Oral 640 ml 600 ml IV Total 980.444 ml Output Urine Total 350 ml # Bowel Movements 1 Laboratory Tests Test 01/21/20 04:24 01/21/20 06:02 White Blood Count 9.1 K/UL (4.8-10.8) Red Blood Count 3.49 M/UL (4.70-6.10) L Hemoglobin 10.9 G/DL (14.2-18.0) L Hematocrit 28.9 % (42.0-52.0) L Mean Corpuscular Volume 83 FL (80-99) Mean Corpuscular Hemoglobin 31.1 PG (27.0-31.0) H Mean Corpuscular Hemoglobin Concent 37.6 G/DL (32.0-36.0) H Red Cell Distribution Width 13.4 % (11.6-14.8) Platelet Count 175 K/UL (150-450) Mean Platelet Volume 7.2 FL (6.5-10.1) Neutrophils (%) (Auto) 50.2 % (45.0-75.0) Lymphocytes (%) (Auto) 38.0 % (20.0-45.0) Monocytes (%) (Auto) 7.2 % (1.0-10.0) Eosinophils (%) (Auto) 3.5 % (0.0-3.0) H Basophils (%) (Auto) 1.1 % (0.0-2.0) Sodium Level 145 MMOL/L (136-145) Potassium Level 3.3 MMOL/L (3.5-5.1) L Chloride Level 115 MMOL/L (98-107) H Carbon Dioxide Level 21 MMOL/L (21-32) Anion Gap 9 mmol/L (5-15) Blood Urea Nitrogen 8 mg/dL (7-18) Creatinine 0.9 MG/DL (0.55-1.30) Estimat Glomerular Filtration Rate > 60 mL/min (>60) Glucose Level 128 MG/DL (74-106) H Calcium Level 8.0 MG/DL (8.5-10.1) L Phosphorus Level 2.6 MG/DL (2.5-4.9) Magnesium Level 1.8 MG/DL (1.8-2.4) Total Bilirubin 0.6 MG/DL (0.2-1.0) Aspartate Amino Transf (AST/SGOT) 24 U/L (15-37) Alanine Aminotransferase (ALT/SGPT) 30 U/L (12-78) Alkaline Phosphatase 85 U/L (46-116) Total Protein 6.2 G/DL (6.4-8.2) L Albumin 2.4 G/DL (3.4-5.0) L Globulin 3.8 g/dL Albumin/Globulin Ratio 0.6 (1.0-2.7) L POC Whole Blood Glucose 135 MG/DL (74-106) H Objective HEAD AND NECK: No JVD. LUNGS: Coarse rhonchi. CARDIOVASCULAR: Regular S1 and S2 with no gallop or murmur. ABDOMEN: Soft. EXTREMITIES: No pitting edema. Jose Womack MD Jan 21, 2020 12:23
--- NOTE | 2020-01-21 12:48 | NUR ---
*-* DISCHARGE PLANNED*-* PATIENT HAS PATIENT ACCEPTED AND WILL BE DISCHARGE BACK TO: [facility] P:[phone] FOR NURSE TO NURSE REPORT ROOM# 27.2 [facility] SET FOR 1:30PM [id number]. S/W PATIENT FAMILY ENEDINA HENLEY, WHO IS IN AGREEMENT WITH DISCHARGE PLAN.
--- NOTE | 2020-01-21 13:15 | NUR ---
NURSE NOTES: Per Dr. Oneal continue all meds except for IV medication.
--- NOTE | 2020-01-21 13:52 | NUR ---
NURSE NOTES: Report given to Keri DUMONT. Please note that I called the family member listed in the chart to report that the pt is being transferred back to SNF and no one picked up and there was no VM box.
--- NOTE | 2020-01-21 15:56 | NUR ---
NURSE NOTES: Pt picked up by [facility]. Telel box removed. 2 IV lines removed. Wrist band cut. Pt in bed stable. No belongings.
--- NOTE | 2020-01-21 20:26 | Psychiatric Progress Note ---
Psychiatry Progress Note Psychiatry Progress Note Neurological/Psychiatric: Reports: anxiety, depressed, emotional problems Allergies: Coded Allergies: No Known Allergies (Verified , 08/20/09) Objective Data Height (Feet): 5 Height (Inches): 7.00 Weight (Pounds): 161 General Appearance: no apparent distress Additional Comments: Patient is alert and oriented times self. Mood is anxious. Affect is blunted. Congruent with mood. Thought process is concrete. Thought content, no suicidal or homicidal ideation. Cognition is impaired. Insight and judgment are impaired. Assessment/Plan Assessment/Plan: ASSESSMENT: [place] I Acute toxic encephalopathy. [place] II Deferred. [place] III As above. [place] IV Low. [place] V 20. PLAN: 1. We will start the patient on low dose of antipsychotics. 2. Provide the patient with reality orientation and supportive therapy. Kaya Lagos MD Jan 21, 2020 20:26
--- NOTE | 2020-01-21 23:15 | Consultation ---
DATE OF CONSULTATION: 01/21/2020 CONSULTING PHYSICIAN: Kaya Lagos MD HISTORY OF PRESENT ILLNESS: This is an 84-year-old male with a history of diabetes mellitus and hypertension who has been admitted to the hospital due to sepsis. 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 PAST PSYCHIATRIC HISTORY: Dementia, depression. PAST MEDICAL HISTORY: Significant for diabetes, end-stage renal failure, hypertension. ALLERGIES: No known drug allergies. SUBSTANCE ABUSE HISTORY: No known history of illicit drug use or alcohol. MENTAL STATUS EXAMINATION: Patient is alert and oriented times self. Mood is anxious. Affect is blunted. Congruent with mood. Thought process is concrete. Thought content, no suicidal or homicidal ideation. Cognition is impaired. Insight and judgment are impaired. ASSESSMENT: [place] I Acute toxic encephalopathy. [place] II Deferred. [place] III As above. [place] IV Low. [place] V 20. PLAN: 1. We will start the patient on low dose of antipsychotics. 2. Provide the patient with reality orientation and supportive therapy. Kaya Lagos M.D. DR: Emeterio JOB#: [id number] CC: DORI
--- NOTE | 2020-01-23 11:18 | Discharge Summary ---
Discharge Summary Discharge Summary _ DATE OF ADMISSION: 01/14/2020 DATE OF DISCHARGE: 01/21/2020 DISCHARGED BY: Dr. Rah Oneal CONSULTANTS: Dr. Kaya Frias BRIEF HOSPITAL COURSE: Patient is an 84-year-old male, who presented with electrolyte imbalance and leukocytosis. The patient was brought in from intermediate with high blood sugar. The patient has significant dementia and was unable to give any answers. He has history of end-stage renal disease, not on dialysis. He had prior medical history of dementia and BPH. Patient is DNR. Upon evaluation in ED, blood pressure was 97/71, heart rate 121. He was afebrile and was saturating 94% on room air. Blood work showed WBC of 23.2. Chest x-ray was clear. Glucose was 924. Troponin was 6.623. He was given aspi rin and insulin. He also presented with elevated lactic acid. He was given IV hydration. Repeat Accu-Chek was high. He was given another insulin bolus. He was given IV hydration. EKG showed tachycardia with nonspecific STT wave changes. He was then admitted for evaluation of sepsis and coronary artery disease. He was continued on heparin drip and IV hydration. Patient is DNR. assisted medications were resumed. He was given vancomycin and Zosyn empirically. He was given fluid challenge and hemodynamic support. Rapid Covid test was negative. Echocardiogram showed ejection fraction of 60%. Patient was initially in sinus rhythm then went to atrial fibrillation and then converted back to sinus rhythm. EKG upon review of the sailmaker showed lateral T wave inversion suggestive of ischemia. Cardiac enzymes were flat around 4. EKG did not show any ST elevation, however, there is inferolateral T wave inversions suggestive of ischemia. Elevated troponin may be partially due to renal failure and dehydration. He was given medical treatment. He was continued on aspirin. Heparin drip was discontinued. He is unable to receive beta-kim due to hypotension. He was given midodrine. His blood pressure eventually improved. Midodrine was discontinued. Patient is not a candidate for cardiac catheterization. Statin was discontinued as CPK was elevated to more than 1000. Urine culture showed growth of E. coli. IV vancomycin was discontinued. Patient has dementia with behavioral disturbance. He had episodes of agitation, confusion and inability to answer questions. He was given Aricept and Namenda. He completed antibiotic treatment. He was eventually cleared for discharge back to intermediate. FINAL DIAGNOSES: Leukocytosis, likely sepsis E. coli UTI Acute toxic metabolic encephalopathy Dementia with behavioral disturbance Elevated troponin may be partially due to patient's renal failure and dehydration Evidence of coronary artery disease and non-NSTEMI Lactic acidemia Hypertension, improved Junctional rhythm at 40s while awake Acute on chronic renal failure Severe hypernatremia Diabetes [id number] Left kidney stone BPH DNR DISPOSITION: DC back to intermediate. DISCHARGE MEDICATIONS: Refer to Discharge Medication List. I have been assigned to complete a discharge summary on this account, I was not involved with the patient's management.--SARAH Pichardo Jacqueline Robles NP Jan 23, 2020 11:18
== END 2020-01-21 16:00 | DRG 871 ==
LOC: EDBD 13:41 → EMR 14:54 → 2E 15:18 → EDBEDREQSVC 15:58 → EDBEDREQ 15:58 → 2E 18:34
DX: A41.9 Sepsis, unspecified organism (principal); I21.4 Non-ST elevation (NSTEMI) myocardial infarction; N18.6 End stage renal disease; G92 Toxic encephalopathy; N39.0 Urinary tract infection, site not specified; E87.0 Hyperosmolality and hypernatremia; F03.91 Unspecified dementia, unspecified severity, with behavioral disturbance; N17.9 Acute kidney failure, unspecified; I95.9 Hypotension, unspecified; B96.20 Unspecified Escherichia coli [E. coli] as the cause of diseases classified elsewhere; N40.0 Benign prostatic hyperplasia without lower urinary tract symptoms; Z66 Do not resuscitate; I25.10 Atherosclerotic heart disease of native coronary artery without angina pectoris; N20.0 Calculus of kidney; R13.10 Dysphagia, unspecified; Z22.322 Carrier or suspected carrier of Methicillin resistant Staphylococcus aureus; E11.65 Type 2 diabetes mellitus with hyperglycemia
CPT/HCPCS: 36415; 71045; 76770; 80048; 80053; 80061; 80076; 80202; 81003; 82550; 82607; 82728; 82746; 82962; 82977; 83540; 83550; 83605; 83615; 83690; 83735; 83880; 84100; 84300; 84484; 84550; 85007; 85025; 85610; 85730; 86140; 87040; 87081; 87086; 87181; 93005; 93306; 96361; 96365; 96367; 96375; 99291; J1815; J7030; J8499; U0002